=== PATIENT | female | born 2005 | race Caucasian/White ===

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

== ENCOUNTER 2023-03-04 11:29 | Outpatient (REF) | payer OTHER, SELFPAY ==
[2023-03-05 09:12] LABS: CT PCR NOT DETECTED (Not Detect.); NG PCR NOT DETECTED (Not Detect.)
[2023-03-05 11:05] LABS: BV Int Neg Control Negative (Negative); BV Int Pos Control Positive (Positive)
== END 2023-03-04 11:30 | disposition home or self-care (01) ==
LOC: HO.LNP 11:29
PROVIDERS: PCP Physician Assistant; Visit Provider Advanced Practice Midwife
DX: Z00.00 Encounter for general adult medical examination without abnormal findings (principal); Z11.3 Encounter for screening for infections with a predominantly sexual mode of transmission
CPT/HCPCS: 0353U; 87480; 87510; 87660

== ENCOUNTER 2023-04-16 14:48 | Emergency (ER) | payer OTHER, SELFPAY ==
--- NOTE | ~2023-04-16 | XR_ITS ---
EXAMINATION: XR CHEST CLINICAL INFORMATION: Shortness of breath COMPARISON: None available. TECHNIQUE: 2 views of the chest were obtained. FINDINGS: No significant abnormality is noted involving the heart, lungs, mediastinum, bony thorax or soft tissues. XR/XR chest 2V IMPRESSION: Unremarkable examination.
[2023-04-16 14:54] VITALS: BP 130/82; PULSE 74; RESP 18; TEMP 36.1; O2SAT 100; BMI 19.9
--- NOTE | 2023-04-16 15:02 | ED_ITS ---
HPI - Asthma General Chief Complaint: Asthma Stated Complaint: difficulty breathing Time Seen by Provider: 04/16/23 15:18 Source: patient Mode of arrival: ambulatory Limitations: no limitations History of Present Illness HPI Narrative: 17-year-old female with a history of asthma, anxiety, depression who presents to the ER for evaluation of chest tightness and SOB that started at 2pm today. she feels like the center for chest is very tight. She has been coughing. She states she has been anxious and unable to take a deep breath. She tried to use her inhaler but was unable to take a deep breath. She came to the ER for further evaluation. She wrap to the ER tearful and anxious, hyperventilating. Patient denies any chest pain, fevers, chills, nausea, vomiting, diarrhea or abdominal pain. She has a known asthma triggers. She uses her inhaler only intermittently and when she needs it. MD complaint: shortness of breath Onset (ago): hour(s) Severity: moderate Context: other (anxiety) Associated symptoms: productive cough Treatments Prior to Arrival: inhaled bronchodilator Related Data Current Asthma Therapy: inhaled bronchodilator Previous Rx's Medication Instructions Recorded fluticasone propionate 50 1 spray intranasal DAILY PRN 08/05/21 mcg/actuation nasal allergy symptoms #16 grams spray,suspension (Flonase Allergy Relief) tretinoin 0.025 % topical cream 1 appl topical BEDTIME #45 grams 09/25/21 (Retin-A) loratadine 10 mg tablet 10 mg PO DAILY #90 tabs 01/12/22 sertraline 25 mg tablet 12.5 mg PO DAILY 30 days #15 tabs 08/21/22 albuterol sulfate 90 mcg/actuation 1 inh inhalation QID PRN shortness 04/16/23 aerosol inhaler of breath or wheezing #6.7 grams Allergies Allergy/AdvReac Type Severity Reaction Status Date / Time dog dander Allergy Mild Sneezing Verified 03/04/23 11:37 [place] Allergy Unknown Unknown Uncoded 03/04/23 11:37 pollen Allergy Unknown Unknown Uncoded 03/04/23 11:37 Soap Allergy Unknown Unknown Uncoded 03/04/23 11:37 Review of Systems Review of Systems: Yes all other systems are reviewed and are negative PMFSH Past Medical History Medical History (Updated 04/16/23 @ 16:40 by DANDY Guaman) Asthma Hypotension Surgical History No pertinent past surgical history Family History Family History (Updated 03/04/23 @ 11:39 by YOANA Chaves) Father No problems noted. Mother Rheumatoid arthritis HTN (hypertension) Lupus Maternal Aunt Breast cancer Social History Social History (Updated 03/04/23 @ 11:39 by YOANA Chaves) Alcohol intake: never Smoked in Last 30 Days: Yes Use of substances other than those prescribed or required for medical reasons: Yes Substance Use Type: Marijuana Substance Use Frequency: Occasionally Advance Directives: No Advance Directives Information Provided: No Patient : No Physical Exam Vital Signs: Vital Signs: Last Vital Signs Temp 98 F 04/16/23 16:44 Pulse 93 04/16/23 16:44 Resp 20 04/16/23 16:44 BP 99/70 04/16/23 16:44 Pulse Ox 100 04/16/23 16:44 O2 Del Method Room Air 04/16/23 16:44 BMI result Body Mass Index 19.9 Appearance: Alert. Oriented X3. No acute distress. Head: normocephalic, atraumatic. Eyes: Pupils equal, round and reactive to light. ENT: Pharynx normal. No tonsillar swelling or exudate. Neck: Normal inspection. Neck supple. CVS: Normal heart rate and rhythm. Pulses normal. Respiratory: No respiratory distress. Breath sounds normal. Abdomen: Soft and nontender. +BS x4 Skin: Skin warm and dry. Normal skin color. Normal skin turgor. No rashes. Extremities: No lower extremity edema. No joint swelling. Neuro/psych: Oriented X 3. No motor deficit. No sensory deficit. CN II-XII intact. Normal speech and cognition. Course Course Course Narrative: This is an RME: Additional HPI, ROS, PE not included below will be deferred to primary provider. This is a 2-yijs-rh, with a hx of asthma, presenting to the emergency department with complaints of shortness of breath just prior to arrival. P atient is tearful and stating that her hands and her face are numb. She tried using her albuterol inhaler and nebulizers at home which provided her without any relief. Lung sounds clear to auscultation bilaterally. Patient reports that she feels as though she cannot take a deep breath. VSS, oxygen saturation 100% on RA. Plan: Albuterol updraft ordered. Medications Administered Discontinued Medications Generic Name Dose Route Start Last Admin Trade Name Freedom PRN Reason Stop Dose Admin Albuterol Sulfate 5 mg 04/16/23 14:51 04/16/23 15:36 Albuterol Sulfate (0.083%) 2.5 Mg/3 Ml Vial.Neb INHALE 04/16/23 14:52 5 mg ONCE ONE Administration Medical Decision Making Medical Decision Making MDM Narrative: 17-year-old female with history of anxiety, depression, asthma presents to the ER for evaluation of shortness of breath and chest tightness that started this afternoon. Arrives to the ER anxious, tachypneic. Her lungs are clear throughout with no wheezing. She is satting 100% on room air. Patient was administered albuterol nebulizer treatment. Chest x-ray was performed which was negative for pneumonia. She is feeling better after her treatment. Her symptoms most likely related to anxiety and less likely asthma given no wheezing on examination. No role for steroids today. She did run out of her albuterol inhaler and would like a refill. She is stable for discharge home. Differential Diagnosis Differential Diagnoses: The differential diagnosis associated with the presentation includes Acute asthma exacerbation, acute anxiety attack, URI with cough, bronchospasm, allergic reaction, less likely pulmonary embolism Independent Interpretation I performed an independent interpretation of an: Plain X-Ray Interpretation: Chest x-ray with good inspiratory effort, no focal opacity Radiology Impression Discussion of test interpretation with radiology: I have reviewed the radiologist's reading. Radiologist Impression: XR/XR chest 2V IMPRESSION: Unremarkable examination. External Record Review External record reviewed: Outpatient record and Prior outpatient labs Prescription Management I considered prescription management with: Other (albuterol) Critical Care Time Critical Care Time Critical Care Time: No Discharge Plan Discharge Clinical Impression: Shortness of breath Patient Disposition: Home, Self-Care Instructions: Shortness of Breath (ED) Additional Instructions: Your chest x-ray today was normal. Your oxygen level was 100% and your lungs were clear on exam. Recommend using the prescribed albuterol inhaler as needed for shortness of breath or wheezing. Recommend starting Mucinex for your cough, to help thin the mucus. If you develop new or worsening symptoms call 911 or come back to the ER for further evaluation. Prescriptions: New albuterol sulfate 90 mcg/actuation HFA aerosol inhaler 1 inh inhalation QID PRN (Reason: shortness of breath or wheezing) Qty: 6.7 0RF No Action fluticasone propionate [Flonase Allergy Relief] 50 mcg/actuation spray,suspension 1 spray intranasal DAILY PRN (Reason: allergy symptoms) Qty: 16 1RF Rx Instructions: administer into each nostril loratadine 10 mg tablet 10 mg PO DAILY Qty: 90 2RF Rx Instructions: Take 1 tablet by mouth daily tretinoin [Retin-A] 0.025 % cream 1 appl topical BEDTIME Qty: 45 1RF sertraline 25 mg tablet 12.5 mg PO DAILY 30 Days Qty: 15 2RF Interventions: ED Discharge Assessment Last Done: 04/16/23 16:41 Discharge Date/Time: 04/16/23 16:48
[2023-04-16 15:36] VITALS: PULSE 71; RESP 16; O2SAT 100
[2023-04-16] MEDS: Albuterol Sulfate (0.083%) 2.5 MG/3 ML VIAL.NEB 5 MG INHALE (15:36)
--- NOTE | 2023-04-16 15:55 | PC.NURSE ---
pt currently in room getting updraft from RT, pt a&ox3, pt speaking in full sentences, lungs at this time are diminished but clear-mid updraft, denies pain/discomfort, call batista within reach, will continue to monitor
[2023-04-16 16:44] VITALS: BP 99/70; PULSE 93; RESP 20; TEMP 36.6; O2SAT 100
== END 2023-04-16 16:48 | disposition home or self-care (01) ==
PROVIDERS: Emergency Provider Internal Medicine; PCP Physician Assistant
DX: R06.02 Shortness of breath (principal); R05.9 Cough, unspecified; F41.9 Anxiety disorder, unspecified; Z79.899 Other long term (current) drug therapy
CPT/HCPCS: 71046; 94640; 99284

== ENCOUNTER 2023-04-18 04:47 | Emergency (ER) | payer OTHER, SELFPAY ==
[2023-04-18 04:54] VITALS: BP 94/64; PULSE 76; RESP 16; TEMP 37.3; O2SAT 100; BMI 24.0
[2023-04-18 05:00] VITALS: BP 94/64; PULSE 76; RESP 16; TEMP 37.3; O2SAT 100
[2023-04-18 05:10] VITALS: O2SAT 100
--- NOTE | 2023-04-18 05:11 | PC.NURSE ---
pt c/o sob and not being able to catch a full breath aox4 mother at bedside no respiratory distress
--- NOTE | 2023-04-18 05:14 | ED_ITS ---
HPI - General Adult General Chief complaint: Upper Respiratory Symptoms Stated complaint: sob Time Seen by Provider: 04/18/23 04:53 Source: patient Mode of arrival: ambulatory Limitations: no limitations History of Present Illness HPI narrative: 17-year-old female with history of asthma presents with shortness of breath, nasal congestion and chest tightness. Symptoms started on April 16 of this year. Symptoms are intermittent. They are moderate to severe. There is no clear relieving or exacerbating features. She has tried nasal steroids, and had albuterol inhaler. Symptoms are moderate to severe at this time which brought her into the emergency department early this morning. She denies any fevers or chills. She does advocate that she has nasal congestion and postnasal drip. She denies any significant headache, nausea or additional focal neurologic deficits per Related Data Previous Rx's Medication Instructions Recorded fluticasone propionate 50 1 spray intranasal DAILY PRN 08/05/21 mcg/actuation nasal allergy symptoms #16 grams spray,suspension (Flonase Allergy Relief) tretinoin 0.025 % topical cream 1 appl topical BEDTIME #45 grams 09/25/21 (Retin-A) loratadine 10 mg tablet 10 mg PO DAILY #90 tabs 01/12/22 sertraline 25 mg tablet 12.5 mg PO DAILY 30 days #15 tabs 08/21/22 albuterol sulfate 90 mcg/actuation 1 inh inhalation QID PRN shortness 04/16/23 aerosol inhaler of breath or wheezing #6.7 grams fexofenadine-pseudoephedrine ER 1 tab PO QAM PRN allergy symptoms 04/18/23 180 mg-240 mg tablet,ext.release #10 tabs 24 hr (Lacy-D 24 Hour) Allergies Allergy/AdvReac Type Severity Reaction Status Date / Time dog dander Allergy Mild Sneezing Verified 03/04/23 11:37 [place]itos Allergy Unknown Unknown Uncoded 03/04/23 11:37 pollen Allergy Unknown Unknown Uncoded 03/04/23 11:37 Soap Allergy Unknown Unknown Uncoded 03/04/23 11:37 Review of Systems Review of Systems: CONSTITUTIONAL: Denies weight loss, fever and chills. HEENT: Denies changes in vision and hearing. RESPIRATORY: + SOB and cough. CV: Denies palpitations no CP. GI: Denies abdominal pain, nausea, vomiting and diarrhea. : Denies dysuria and urinary frequency. MSK: Denies myalgia and joint pain. SKIN: Denies rash and pruritus. NEUROLOGICAL: Denies headache and syncope. PSYCHIATRIC: Denies recent changes in mood. Denies anxiety and depression. All other ROS are negative unless in HPI [facility] Past Medical History Medical History Asthma Hypotension Surgical History No pertinent past surgical history Family History Family History Father No problems noted. Mother Rheumatoid arthritis HTN (hypertension) Lupus Maternal Aunt Breast cancer Social History Social History Alcohol intake: never Substance Use Type: Marijuana Physical Exam ED Vital Signs: Vital Signs - 24 hr 04/18/23 04:54 04/18/23 05:00 04/18/23 05:10 Temperature 99.1 F 99.1 F Pulse Rate 76 76 Respiratory Rate 16 16 Blood Pressure 94/64 94/64 Pulse Oximetry 100 100 100 Oxygen Delivery Method Room Air Room Air Room Air BMI result Body Mass Index 24.0 GEN: Well developed, no acute distress, alert, oriented HEENT: Normocephalic, atraumatic, normal external ears, nose appears normal, no oropharyngeal edema or exudates Eyes: Normal to appearance Neck: Supple, no lymphadenopathy Respiratory: Talks in complete sentences, no respiratory distress, clear to auscultation bilaterally Cardiovascular: Regular rate and rhythm, no murmurs rubs or gallops Abdomen: Soft, nontender, nondistended, no guarding, no rebound Back: No CVA tenderness Extremities: No clubbing cyanosis or edema Neurologic: No focal neurologic deficits, cranial nerves 2-12 intact, strength is 5/5 bilaterally Skin: No rash Medical Decision Making Medical Decision Making MDM Narrative: 17-year-old female with history of asthma presents with difficulty breathing. Her sensations that she is not able to take full breath in. On my evaluation, patient had a pulse rate of 70. Her oxygen saturation was 100% on room air. She did appear somewhat anxious and short of breath but was able to talk in complete sentences. She was afebrile. She was here in the emergency department just a couple days ago. She had a chest x-ray which was unremarkable for acute cardiopulmonary disease. At this time, based on the congestion, cough, postnasal drip, shortness of breath, this is suggestive of a sinus related issue. She will continue nasal steroid. I will give her 1 dose of systemic steroids. She will use albuterol inhaler as needed. She has already been prescribed fluticasone nasal spray. I did review the imaging study from 2 days ago which showed no acute cardiopulmonary disease. There is no emergent indication for any additional testing. Doubt significant anemia, renal dysfunction, electrolyte abnormality. Doubt pneumonia, bronchitis, patient is PERC criteria 0 in unlikely of acute pulmonary embolus. Will treat patient with 1 dose of dexamethasone, Benadryl. Will recommend additional treatment. Will recommend follow-up with Pulmonary Medicine as well. Differential Diagnosis Differential Diagnoses: The differential diagnosis associated with the presentation includes (See above) External Record Review External record reviewed: Prior outpatient radiology (Chest x-ray was normal, no acute cardiopulmonary disease) Prescription Management I considered prescription management with: Antibiotic Discharge Plan Discharge Clinical Impression: Acute dyspnea Patient Disposition: Home, Self-Care Instructions: How to Use a Metered-Dose Inhaler (ED), Dyspnea (ED) Additional Instructions: Plan: Start Lacy-D daily Albuterol inhaler every 6 hours as needed Fluticasone nasal spray daily You received oral steroids in the emergency department. Prescriptions: New fexofenadine-pseudoephedrine [Lacy-D 24 Hour] 180-240 mg tablet extended release 24 hr 1 tab PO QAM PRN (Reason: allergy symptoms) Qty: 10 0RF No Action fluticasone propionate [Flonase Allergy Relief] 50 mcg/actuation spray,suspension 1 spray intranasal DAILY PRN (Reason: allergy symptoms) Qty: 16 1RF Rx Instructions: administer into each nostril loratadine 10 mg tablet 10 mg PO DAILY Qty: 90 2RF Rx Instructions: Take 1 tablet by mouth daily albuterol sulfate 90 mcg/actuation HFA aerosol inhaler 1 inh inhalation QID PRN (Reason: shortness of breath or wheezing) Qty: 6.7 0RF tretinoin [Retin-A] 0.025 % cream 1 appl topical BEDTIME Qty: 45 1RF sertraline 25 mg tablet 12.5 mg PO DAILY 30 Days Qty: 15 2RF Referrals: Thom Ramey MD [Physician] - 10 days Bee Perkins PA-C [Primary Care Provider] - 5 days
[2023-04-18] MEDS: diphenhydrAMINE HCL 25 MG CAPSULE 50 MG PO (05:42)
[2023-04-18] MEDS: dexAMETHasone 6 MG TABLET PO (05:42)
--- NOTE | 2023-04-18 05:42 | PC.NURSE ---
benadryl and dexamethasone PO administered per MAR
== END 2023-04-18 05:48 | disposition home or self-care (01) ==
PROVIDERS: Emergency Provider Emergency Medicine; PCP Physician Assistant
DX: R06.02 Shortness of breath (principal); R07.89 Other chest pain; Z79.899 Other long term (current) drug therapy
CPT/HCPCS: 99283; 99284; J8540

== ENCOUNTER 2023-04-20 01:21 | Emergency (ER) | payer OTHER, SELFPAY ==
[2023-04-20 01:25] VITALS: BP 127/79; PULSE 79; RESP 18; TEMP 36.4; O2SAT 98; BMI 43.0
--- NOTE | 2023-04-20 01:48 | ED_ITS ---
HPI - Anxiety General Chief Complaint: Anxiety Stated Complaint: Sob Time Seen by Provider: 04/20/23 01:47 Source: patient Mode of arrival: ambulatory Limitations: no limitations History of Present Illness HPI narrative: Patient history of anxiety been here 2 times in last 3 days for anxiety/chest pain/shortness of breath comes here as still feel the same with increased shortness of breath and mid chest pain since last no diaphoresis no nausea no vomiting patient claims that she has increased anxiety. No recent travel Related Data Previous Rx's Medication Instructions Recorded fluticasone propionate 50 1 spray intranasal DAILY PRN 08/05/21 mcg/actuation nasal allergy symptoms #16 grams spray,suspension (Flonase Allergy Relief) tretinoin 0.025 % topical cream 1 appl topical BEDTIME #45 grams 09/25/21 (Retin-A) loratadine 10 mg tablet 10 mg PO DAILY #90 tabs 01/12/22 sertraline 25 mg tablet 12.5 mg PO DAILY 30 days #15 tabs 08/21/22 albuterol sulfate 90 mcg/actuation 1 inh inhalation QID PRN shortness 04/16/23 aerosol inhaler of breath or wheezing #6.7 grams fexofenadine-pseudoephedrine ER 1 tab PO QAM PRN allergy symptoms 04/18/23 180 mg-240 mg tablet,ext.release #10 tabs 24 hr (Lacy-D 24 Hour) ibuprofen 600 mg tablet 600 mg PO Q6H PRN fever or pain 04/20/23 #30 tabs lorazepam 0.5 mg tablet (Ativan) 0.5 mg PO BID PRN anxiety #6 tabs 04/20/23 Allergies Allergy/AdvReac Type Severity Reaction Status Date / Time dog dander Allergy Mild Sneezing Verified 03/04/23 11:37 [place]itos Allergy Unknown Unknown Uncoded 03/04/23 11:37 pollen Allergy Unknown Unknown Uncoded 03/04/23 11:37 Soap Allergy Unknown Unknown Uncoded 03/04/23 11:37 Review of Systems Review of Systems: Yes all other systems are reviewed and are negative [facility] Past Medical History Medical History Asthma Hypotension Surgical History No pertinent past surgical history Family History Family History Father No problems noted. Mother Rheumatoid arthritis HTN (hypertension) Lupus Maternal Aunt Breast cancer Social History Social History Alcohol intake: never Smoked in Last 30 Days: No Use of substances other than those prescribed or required for medical reasons: No Substance Use Type: Marijuana Advance Directives: No Advance Directives Information Provided: Yes Physical Exam Vital Signs: Vital Signs: Last Vital Signs Temp 97.9 F 04/20/23 04:00 Pulse 66 04/20/23 04:00 Resp 16 04/20/23 04:00 BP 94/54 L 04/20/23 04:00 Pulse Ox 100 04/20/23 04:00 O2 Del Method Room Air 04/20/23 04:00 BMI result Body Mass Index 43.0 Appearance: Alert. Oriented X3. Anxious Eyes: PERRLA, No Nystagmus ENT: Pharynx normal. Oral Mucosa moist Neck: Normal inspection. Neck supple. CVS: Normal heart rate and rhythm. Pulses normal. Respiratory: No respiratory distress. Equal air entry bilateral, no wheezing/rales/rhonchi left 2nd intercostal space tenderness Abdomen: Soft and nontender. Bowel sounds are present, no mass palpable, no CVA tenderness Skin: Skin warm and dry. Normal skin color. Normal skin turgor. Extremities: No lower extremity edema. No calf tenderness Neuro: Oriented X 3. No motor deficit. Medications Administered Discontinued Medications Generic Name Dose Route Start Last Admin Trade Name Reeseq PRN Reason Stop Dose Admin Ibuprofen 600 mg 04/20/23 01:57 04/20/23 02:04 Ibuprofen 600 Mg Tablet PO 04/20/23 01:58 600 mg ONCE ONE Administration Lorazepam 1 mg 04/20/23 01:54 04/20/23 02:05 Lorazepam 1 Mg Tablet PO 04/20/23 01:55 1 mg ONCE ONE Administration Medical Decision Making Medical Decision Making [facility] Narrative: Patient's diet of atypical chest workup negative any ACS /PE will discharge patient home patient feeling much better at this time Lab Data [facility] Lab Attestation statement: I reviewed the patient's lab results. 04/20/23 02:14 04/20/23 02:14 Labs: Lab Results 04/20/23 04/20/23 04/20/23 Range/Units 02:14 02:14 02:14 WBC 11.8 H (4.8-10.8) X10*3/uL RBC 4.60 (4.20-5.50) X10*6/uL Hgb 14.0 (12.0-16.0) g/dl Hct 41.4 (37.0-47.0) % MCV 90.0 (80.0-98.0) fL MCH 30.4 (27.0-33.0) pg MCHC 33.8 (31.0-35.0) g/dl RDW 12.4 (11.0-16.0) % Plt Count 307 (160-400) X10*3/uL MPV 9.0 L (9.4-12.3) fL Immature Gran % (Auto) 0.4 (0.0-0.4) % Neut % (Auto) 50.1 (45-73) % Lymph % (Auto) 39.3 (20-40) % [place] % (Auto) 8.4 (2-11) % Eos % (Auto) 1.4 (0-4) % Baso % (Auto) 0.4 (0-2) % Lymph # (Auto) 4.7 (1.2-4.9) X10*3/uL [place] # (Auto) 1.0 (0.1-1.2) X10*3/uL Eos # (Auto) 0.2 (0.0-0.4) X10*3/uL Baso # (Auto) 0.1 (0.0-0.2) X10*3/uL Abs Immat Gran (auto) 0.05 H (0.00-0.03) X10*3/uL Absolute Neuts (auto) 5.9 (2.0-8.3) x10*3/uL Absolute Nucleated RBC 0.000 (0.0-0.012) X10*3/uL Nucleated RBC % (auto) 0.0 (0.0-0.2) /100WBC D-Dimer High Sensitivty 212 NG/ML Sodium 141 (135-145) mmol/L Potassium 3.8 (3.3-5.1) mmol/L Chloride 107 (96-108) mmol/L Carbon Dioxide 22 (22-29) mmol/L Anion Gap 16 (12-20) BUN 12 (9-16) mg/dL Creatinine 0.82 (0.5-1.4) mg/dL Estim Creat Clear Calc 131.4 Estimated GFR > 60 Random Glucose 84 (60-115) mg/dL Calcium 10.3 H D (8.4-10.2) mg/dL Magnesium 2.4 (1.6-2.6) mg/dL Troponin I High Sens (<3.5-17.0) ng/L 04/20/23 Range/Units 02:14 WBC (4.8-10.8) X10*3/uL RBC (4.20-5.50) X10*6/uL Hgb (12.0-16.0) g/dl Hct (37.0-47.0) % MCV (80.0-98.0) fL MCH (27.0-33.0) pg MCHC (31.0-35.0) g/dl RDW (11.0-16.0) % Plt Count (160-400) X10*3/uL MPV (9.4-12.3) fL Immature Gran % (Auto) (0.0-0.4) % Neut % (Auto) (45-73) % Lymph % (Auto) (20-40) % [place] % (Auto) (2-11) % Eos % (Auto) (0-4) % Baso % (Auto) (0-2) % Lymph # (Auto) (1.2-4.9) X10*3/uL [place] # (Auto) (0.1-1.2) X10*3/uL Eos # (Auto) (0.0-0.4) X10*3/uL Baso # (Auto) (0.0-0.2) X10*3/uL Abs Immat Gran (auto) (0.00-0.03) X10*3/uL Absolute Neuts (auto) (2.0-8.3) x10*3/uL Absolute Nucleated RBC (0.0-0.012) X10*3/uL Nucleated RBC % (auto) (0.0-0.2) /100WBC D-Dimer High Sensitivty NG/ML Sodium (135-145) mmol/L Potassium (3.3-5.1) mmol/L Chloride (96-108) mmol/L Carbon Dioxide (22-29) mmol/L Anion Gap (12-20) BUN (9-16) mg/dL Creatinine (0.5-1.4) mg/dL Estim Creat Clear Calc Estimated GFR Random Glucose (60-115) mg/dL Calcium (8.4-10.2) mg/dL Magnesium (1.6-2.6) mg/dL Troponin I High Sens < 2.7 (<3.5-17.0) ng/L Independent Interpretation I performed an independent interpretation of an: EKG Interpretation: Normal sinus rhythm heart rate 60 beats per minute normal interval normal axis no acute ST-T changes no acute ischemia Discharge Plan Discharge Clinical Impression: Acute anxiety, Acute costochondritis Patient Disposition: Home, Self-Care Instructions: Costochondritis (ED), Anxiety (ED) Additional Instructions: Continue your prescribed medications Ativan for severe anxiety Ibuprofen for chest pain Follow with PCP as needed Prescriptions: New ibuprofen 600 mg tablet 600 mg PO Q6H PRN (Reason: fever or pain) Qty: 30 0RF lorazepam [Ativan] 0.5 mg tablet 0.5 mg PO BID PRN (Reason: anxiety) Qty: 6 0RF No Action fluticasone propionate [Flonase Allergy Relief] 50 mcg/actuation spray,suspension 1 spray intranasal DAILY PRN (Reason: allergy symptoms) Qty: 16 1RF Rx Instructions: administer into each nostril loratadine 10 mg tablet 10 mg PO DAILY Qty: 90 2RF Rx Instructions: Take 1 tablet by mouth daily albuterol sulfate 90 mcg/actuation HFA aerosol inhaler 1 inh inhalation QID PRN (Reason: shortness of breath or wheezing) Qty: 6.7 0RF fexofenadine-pseudoephedrine [Lacy-D 24 Hour] 180-240 mg tablet extended release 24 hr 1 tab PO QAM PRN (Reason: allergy symptoms) Qty: 10 0RF tretinoin [Retin-A] 0.025 % cream 1 appl topical BEDTIME Qty: 45 1RF sertraline 25 mg tablet 12.5 mg PO DAILY 30 Days Qty: 15 2RF
--- NOTE | 2023-04-20 01:54 | ECG_ITS ---
Test Reason : ANXIETY Blood Pressure : / mmHG Vent. Rate : 060 BPM Atrial Rate : 060 BPM P-R Int : 128 ms QRS Dur : 092 ms QT Int : 414 ms P-R-T Axes : 000 079 038 degrees QTc Int : 414 ms Normal sinus rhythm with sinus arrhythmia Normal ECG No previous ECGs available Referred By: Angel Ibrahim Electronically Signed By:BISHOP RIVAS MD
[2023-04-20] MEDS: Ibuprofen 600 MG TABLET PO (02:04)
[2023-04-20] MEDS: LORazepam 1 MG TABLET PO (02:05)
[2023-04-20 02:19] LABS: MANUAL DIFF FLAG NO
[2023-04-20 02:20] LABS: Basophils Absolute Auto 0.1 X10*3/uL (0.0-0.2); Basophils Percent Auto 0.4 % (0-2); Eosinophils Absolute Auto 0.2 X10*3/uL (0.0-0.4); Eosinophils Percent Auto 1.4 % (0-4); Hematocrit 41.4 % (37.0-47.0); Imm Gran Abs Auto 0.05 X10*3/uL (0.00-0.03); Imm Gran Pct Auto 0.4 % (0.0-0.4); Lymphocytes Absolute Auto 4.7 X10*3/uL (1.2-4.9); Lymphocytes Percent Auto 39.3 % (20-40); Mean Corpuscular HGB Conc 33.8 g/dl (31.0-35.0); Mean Corpuscular Hemoglobin 30.4 pg (27.0-33.0); Monocytes Percent Auto 8.4 % (2-11); Neutrophils Absolute Auto 5.9 x10*3/uL (2.0-8.3); Neutrophils Percent Auto 50.1 % (45-73); Platelet Count 307 X10*3/uL (160-400); Red Cell Distribution Width 12.4 % (11.0-16.0); White Blood Count 11.8 X10*3/uL (4.8-10.8)
--- NOTE | 2023-04-20 02:21 | PC.NURSE ---
Pt ca&ox3. Pt reports 06/17 neck and chest pain. Pt medicated per jan. Blood drawn and EKG completed. Mother at bedside with patient.
[2023-04-20 02:29] LABS: D Dimer High Sensitivity 212 NG/ML
[2023-04-20 02:43] LABS: Anion Gap 16 (12-20); Blood Urea Nitrogen 12 mg/dL (9-16); Calcium 10.3 mg/dL (8.4-10.2); Carbon Dioxide 22 mmol/L (22-29); Chloride 107 mmol/L (96-108); Creatinine Clr Calc Pharmacy 131.4; Estimated Glomerular Filt Rate > 60; Glucose Random 84 mg/dL (60-115); Magnesium 2.4 mg/dL (1.6-2.6); Potassium 3.8 mmol/L (3.3-5.1); Sodium 141 mmol/L (135-145)
[2023-04-20 02:52] LABS: Troponin-I High Sensitivity < 2.7 ng/L (<3.5-17.0)
[2023-04-20 03:09] VITALS: RESP 12
--- NOTE | 2023-04-20 03:10 | PC.NURSE ---
Pt rest comfortably. Reports 6/10 pain. Mother at bedside. wctm.
[2023-04-20 04:00] VITALS: BP 94/54; PULSE 66; RESP 16; TEMP 36.6; O2SAT 100
--- NOTE | 2023-04-20 04:04 | MHC.EDTECH ---
THIS PCT ASSUMED CARE OF PT AT 0300 ,0400 ROUNDING DONE ,VITALS SIGN TAKEN ,PT AWAKE ,MOM AT BEDSIDE .
== END 2023-04-20 04:33 | disposition home or self-care (01) ==
PROVIDERS: Emergency Provider Internal Medicine
DX: F41.9 Anxiety disorder, unspecified (principal); M94.0 Chondrocostal junction syndrome [Tietze]; R06.02 Shortness of breath; F41.1 Generalized anxiety disorder; F43.0 Acute stress reaction; Z79.899 Other long term (current) drug therapy
CPT/HCPCS: 36415; 80048; 83735; 84484; 85025; 85379; 93005; 99283; 99285

== ENCOUNTER 2023-07-01 07:59 | Outpatient (AMB) | payer OTHER, SELFPAY ==
[2023-07-01 08:20] VITALS: BP 104/60; PULSE 66; O2SAT 99; BMI 21.1
--- NOTE | 2023-07-01 08:20 | A.OFFPC_ITS ---
Vital Signs 07/01/23 08:20 Height 5 ft 3 in Weight 119 lb BMI 21.1 BP 104/60 Blood Pressure Location Lt brachial Position Sitting Pulse 66 Pulse Source Pulse Oximeter Pulse Oximetry (%) 99 Oxygen Delivery Method Room Air Intake Visit Reasons: New patient-respiratory issues Intake Note: New patient, respiratory issues Event Lighting Specialist Required: No Accompanied by: Mother Allergies dog dander Allergy (Mild, Verified 07/01/23 08:38) Sneezing Doritos Allergy (Unknown, Uncoded 07/01/23 08:38) Unknown pollen Allergy (Unknown, Uncoded 07/01/23 08:38) Unknown Soap Allergy (Unknown, Uncoded 07/01/23 08:38) Unknown Medication List - Last Reconciled 07/01/23 by HEATHER Smith albuterol sulfate 90 mcg/actuation 1 inh inhalation QID PRN ibuprofen 600 mg PO Q6H PRN loratadine 10 mg PO DAILY Tobacco use date assessed: 07/01/23 Dental Screening Dental Screen Date: 07/01/23 Did you have a dental visit in the last 12 months?: Yes Did you have a dental problem in the last 6 months where you did not have access to dental care?: No Was dental information given to patient?: Patient has dentist HPI New patient-respiratory issues HPI Details Patient is a 17-year-old female who presents today to on license of [facility] care. Previous PCP DANDY Dawson. medical history significant for anxiety, depression, acne, asthma. Patient reports that she was on antidepressant in the past and she stopped taking it due to not liking have she felt on the medication. Patient not interested in counseling referral-reports doing this in the past and did not like. She has crisis phone number. Denies SI or HI. She reports taking ibuprofen as needed for menstrual cramps - she is followed by [facility]. She reports that in the past she did have positive KOKO-does not want this to recheck this time. Reports that asthma is stable, reports intermittent sensation like she does not have enough air, although last time she reports she had these symptom she went to the emergency department and she was told that this is her anxiety. Patient denies chest pain, no difficulty breathing today. 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 Patient is accompanied by her mother. [facility] Medical History Asthma Hypotension Surgical History No pertinent past surgical history Family History Father No problems noted. Mother Rheumatoid arthritis HTN (hypertension) Lupus Maternal Aunt Breast cancer Family/Other Mental health disorder Substance use disorder Social History Housing: Apartment Alcohol intake: never Patient Tobacco Use Status: Never used Tobacco e-Cigarette/Vaping Use: Never Used Second Hand Smoke Exposure: No Substance Use Type: Marijuana service: No Current occupational status: employed Current occupational exposures/hazards: No Cognitive needs: No Hearing needs: No Vision needs: No Female Reproductive History Menstrual Age of Menarche: 10 Questionnaire PHQ-9 Over the last 2 weeks, how often have you been bothered by any of the following problems? 1. Little interest or pleasure in doing things: several days 2. Feeling down, depressed, or hopeless: several days 3. Trouble falling or staying asleep, or sleeping too much: nearly every day 4. Feeling tired or having little energy: nearly every day 5. Poor appetite or overeating: more than half the days 6. Feeling bad about yourself - or that you are a failure or have let yourself or your family down: several days 7. Trouble concentrating on things, such as reading the newspaper or watching television: several days 8. Moving or speaking so slowly that other people could have noticed. Or the opposite - being so fidgety or restless that you have been moving around a lot more than usual: not at all 9. Thoughts that you would be better off or of hurting yourself in some way: not at all Total score: 12 Depression Screening Interpretation: Positive Depression Screening Follow-up: Declines treatment 28206 - PHQ-9 Billing: Yes Source: Developed by Drs. Star Ballard, Tricia Perkins, Mirza Merino and colleagues, with an educational mone from [employer]. Thrive Questionnaire Date Thrive assessed: 07/01/23 I am a: Patient What is your living situation today?: I have a steady place to live Within the past 12 months, did the food you bought not last and you didn't have the money to get more?: Never true Within the past 12 months, did you worry whether your food would run out before you got money to buy more?: Never true Do you have trouble paying for medicines?: No Do you have trouble getting transportation to medical appointments?: No Do you have trouble paying your heating and electricity bill?: No Do you have trouble taking care of your child, family member or friend?: No Do you have trouble with day-to-day activities such as bathing, preparing meals, shopping, managing finances, etc.?: No Are you currently unemployed and looking for a job?: No Are you interested in more education?: No Please select the resources that you would like help with: None Currently or been in a relationship where the following occur: no concerns reported AUDIT C Alcohol Use Questionnaire (AUDIT-C) 1. How often do you have a drink containing alcohol?: Never Total Score: 0 Score Reviewed/Action Taken: No MABLE-7 AMB Questionnaire MABLE-7 Date MABLE - 7 assessed: 07/01/23 Feeling nervous, anxious, or on edge: 2 = More than half the days Not being able to stop or control worryin = Several days Worrying too much about different things: 3 = Nearly every day Trouble relaxin = More than half the days Being so restless that it is hard to sit still: 0 = Not at all Becoming easily annoyed or irritable: 3 = Nearly every day Feeling afraid as if something awful might happen: 2 = More than half the days Total MABLE-7 score (0-4 normal; 5-9 mild; 10-14 moderate; 15-21 severe): 13 Source: Developed by Drs. Star Ballard, Tricia Perkins, Mirza Merino and colleagues, with an educational mone from [employer]. MABLE-7 Assessment Billing MABLE-7 Assessment Tool: MABLE-7 Assessment 04332 Review of Systems Const Denies body aches, Denies chills, Denies fever(s) and Denies headache(s) Eyes Denies change in vision ENT Denies dizziness, Denies otalgia, Denies headache(s), Denies nasal discharge, Denies sinus pain and Denies sore throat Card Denies chest pain, Denies edema, Denies lightheadedness and Denies dyspnea Resp Denies cough, Denies dyspnea and Denies wheezing GI Denies abdominal pain, Denies constipation, Denies diarrhea, Denies nausea and Denies vomiting Denies dysuria Musc Denies myalgias Skin/Breast Denies rash Neuro Denies dizziness and Denies headache(s) Aller/Immun Denies wheezing Physical exam (Primary Care) Vital Signs: Last Vital Signs Pulse 66 07/01/23 08:20 BP 104/60 07/01/23 08:20 Pulse Ox 99 07/01/23 08:20 Oxygen Delivery Method Room Air 07/01/23 08:20 BMI result Body Mass Index 21.1 Tobacco/Smoking Status: Tobacco use Status Tobacco use date assessed 07/01/23 07/01/23 08:30 Patient Tobacco Use Status Never used Tobacco 07/01/23 08:30 e-Cigarette/Vaping Use Never Used 07/01/23 08:30 PHQ-9: PHQ-9 Score PHQ-9: Total score 12 07/01/23 08:30 Depression Screening Interpretation: Positive Depression Screening Follow-up: Declines treatment Thrive Assessment: Date of Thrive Assessment Date Thrive assessed 07/01/23 07/01/23 08:30 Currently or been in a relationship where the following occur: no concerns reported Const General: cooperative and no acute distress Orientation/consciousness: patient oriented x3 HENMT Head: Yes normocephalic and Yes atraumatic Ears: TM's normal bilaterally Face and sinus: Yes sinuses nontender Mouth: oropharynx normal and moist mucous membranes Throat: Yes posterior oropharynx normal Eyes General: appearance normal, both eyes and all related structures Pupils: Equal, round and reactive pupils present EOM: EOMs intact bilaterally Neck Neck: Yes normal visual inspection, Yes full ROM and Yes no lymphadenopathy Thyroid: Thyroid normal Resp Effort & Inspection: normal respiratory effort and able to speak in complete sentences Auscultation: clear to auscultation bilaterally, no crackles, no rales, no rhonchi and no wheezes Cardio Rate: regular rate Rhythm: regular rhythm Heart sounds: S1 normal heart sound present, S2 normal heart sound present and no murmurs GI Palpation (GI): Soft to palpation, not firm, nontender, no guarding, not rigid and no hepatosplenomegaly Auscultation: normal bowel sounds General: No CVA tenderness Back/Spine/Pelvis Back: No CVA tenderness Skin General skin exam: no rashes or lesions noted Neuro General: patient oriented x3 Cranial nerves: Yes Equal, round and reactive pupils present Gait exam (Neuro): Normal gait present Extrem General: Yes full ROM and No edema Assessment and Plan Assessment & Plan (1) Asthma: Code(s): J45.909 - Unspecified asthma, uncomplicated Plan: Stable Continue albuterol inhaler p.r.n. Signs and symptoms reviewed when to notify provider (2) Anxiety with depression: Code(s): F41.8 - Other specified anxiety disorders Plan: Patient declines antidepressant Patient declines counseling referral Patient has crisis phone number Patient interested in trying hydroxyzine 10 mg b.i.d. p.r.n.-educated about drowsiness Follow-up in 6 months or sooner as needed (3) Encounter to establish care: Code(s): Z76.89 - Persons encountering health services in other specified circumstances Plan: Patient presents to establish care Blood work from 2 months ago was reviewed Medications: New hydroxyzine HCl 10 mg PO BID PRN 10 tabs 0RF anxiety F41.8 - Other specified anxiety disorders Refilled albuterol sulfate 90 mcg/actuation 1 inh inhalation QID PRN 6.7 grams 0RF shortness of breath or wheezing J45.909 - Unspecified asthma, uncomplicated Coding Level of Care Code New Pt Level 4 (55842) Diagnoses Asthma J45.909 Anxiety with depression F41.8 Encounter to establish care Z76.89 Additional Codes MABLE-7 Assessment Billing - MABLE-7 Assessment Tool: MABLE-7 Assessment 56449 ([id number])
== END 2023-07-01 09:01 | disposition home or self-care (01) ==
PROVIDERS: PCP Nurse Practitioner Family; Visit Provider Nurse Practitioner Family
DX: J45.909 Unspecified asthma, uncomplicated (principal); F41.8 Other specified anxiety disorders; Z76.89 Persons encountering health services in other specified circumstances
CPT/HCPCS: 96127; 99204

== ENCOUNTER 2023-08-11 11:17 | Outpatient (REF) | payer OTHER, SELFPAY ==
[2023-08-11 17:39] LABS: CT PCR NOT DETECTED (Not Detect.); NG PCR NOT DETECTED (Not Detect.)
[2023-08-12 12:34] LABS: BV Int Neg Control Negative (Negative); BV Int Pos Control Positive (Positive)
== END 2023-08-11 11:18 | disposition home or self-care (01) ==
LOC: HO.LNP 11:17
PROVIDERS: PCP Nurse Practitioner Family; Visit Provider Advanced Practice Midwife
DX: N89.8 Other specified noninflammatory disorders of vagina (principal)
CPT/HCPCS: 0353U; 87480; 87510; 87660; 99212

== ENCOUNTER 2023-08-11 11:17 | Outpatient (AMB) | payer OTHER, SELFPAY ==
[2023-08-11 11:23] VITALS: BP 100/52; BMI 20.7
--- NOTE | 2023-08-11 11:23 | MHC.OFFVIS ---
Intake Vital Signs 08/11/23 11:23 Height 5 ft 3 in Weight 117 lb BMI 20.7 BP 100/52 L Intake Visit Reasons: ?bv Intake Note: is having odor, and feeling a weird sensation having discharge The patient agreed to use of a medical radiation tech during this encounter. Scribed for MELODY Navarro by Oumou Moore medical radiation tech, on 08/11/2023 at 11:35 am EST. Credit Cashier Required: No Information Interpreted: non-clinical & clinical Road Equipment Operator: Road Equipment Operator Present (Aidyn) Allergies dog dander Allergy (Mild, Verified 08/11/23 11:31) Sneezing Doritos Allergy (Unknown, Uncoded 08/11/23 11:31) Unknown pollen Allergy (Unknown, Uncoded 08/11/23 11:31) Unknown Soap Allergy (Unknown, Uncoded 08/11/23 11:31) Unknown Is last menstrual period known: Yes Last menstrual period: 08/02/23 Post menopausal: No HPI HPI Comments History of Present Illness Details She is here with complaints of vaginal odor and discharge and is taking cranberry supplements. Reports currently sexually active with ex. Uses condoms for BC. Denies pelvic pain. First pelvic exam. PFSH Medical History Hypotension Asthma Surgical History No pertinent past surgical history Family History Father No problems noted. Mother Rheumatoid arthritis HTN (hypertension) Lupus Maternal Aunt Breast cancer Family/Other Mental health disorder Substance use disorder Social History Housing: Apartment Alcohol intake: never Patient Tobacco Use Status: Never used Tobacco e-Cigarette/Vaping Use: Never Used Second Hand Smoke Exposure: No Substance Use Type: Marijuana service: No Current occupational status: employed Current occupational exposures/hazards: No Cognitive needs: No Hearing needs: No Vision needs: No Female Reproductive History Menstrual Age of Menarche: 10 Duration of menses: 3-5 days Date of last menstrual period: 08/02/23 control method: none Total pregnancies: 0 Physical Exam Vital Signs: Last Vital Signs BP 100/52 L 10/04/23 11:23 BMI result Body Mass Index 20.7 Const General: cooperative, healthy appearing, comfortable, no acute distress, well developed, alert and awake Other: General: Yes bladder normal to palpation External Female Exam: normal external appearance and normal appearance of the urethra Speculum Exam - Vagina: normal appearance of the vagina, normal palpation and abnormal vaginal discharge (white, abundant, sl. frothy) Speculum Exam - Cervix: normal appearance of the cervix and normal palpation Bimanual exam- vagina & uterus: normal bimanual exam, normal palpation, bladder normal to palpation and normal palpation Bimanual Exam- Adnexa, other: normal adnexae and no masses Assessment & Plan Assessment & Plan (1) Vaginal discharge: Code(s): N89.8 - Other specified noninflammatory disorders of vagina Plan: Discussed: BV testing and GC/CT panel done today. Await results and treat accordingly. Encouraged to use condoms for STD and prevention. RTO for BC consult when ready to consider use. Encouraged patient to sign up for patient portal. All of her questions and concerns were addressed to the best of my ability and shared decision making. She is agreeable to plan of care. (2) Vaginal odor: Code(s): N89.8 - Other specified noninflammatory disorders of vagina Orders: Orders CT NG by PCR Today N89.8 - Other specified noninflammatory disorders of vagina Bacterial Vaginosis Panel Today N89.8 - Other specified noninflammatory disorders of vagina Coding Level of Care Code Est Pt Level 3 (62003) Diagnoses Vaginal discharge N89.8 Vaginal odor N89.8
== END 2023-08-11 11:47 | disposition home or self-care (01) ==
PROVIDERS: PCP Nurse Practitioner Family; Visit Provider Advanced Practice Midwife
DX: N89.8 Other specified noninflammatory disorders of vagina (principal)
CPT/HCPCS: 99213

== ENCOUNTER 2023-08-14 10:41 | Outpatient (REF) | payer OTHER, SELFPAY | END 2023-08-14 10:42 | disposition home or self-care (01) | LOC: HO.LAB 10:41 | PROVIDERS: Absent Provider Obstetrics & Gynecology; Visit Provider Advanced Practice Midwife | DX: Z20.2 Contact with and (suspected) exposure to infections with a predominantly sexual mode of transmission (principal) | CPT/HCPCS: 36415; 86780; 86803; 87340; 87389 ==

== ENCOUNTER 2024-01-12 08:47 | Outpatient (AMB) | payer OTHER, SELFPAY ==
--- NOTE | 2024-01-12 08:49 | A.OFFPC_ITS ---
Vital Signs 01/12/24 08:51 Height 5 ft 3 in Weight 121 lb 4 oz BMI 21.5 BP 100/60 Blood Pressure Location Lt brachial Position Sitting Pulse 64 Pulse Source Pulse Oximeter Pulse Oximetry (%) 98 Oxygen Delivery Method Room Air Intake Visit Reasons: f/ u asthma & anxiety Intake Note: Patient is here to follow up on Asthma and Anxiety. Industrial Pharmacist Required: No Visual Merchandising Director: Not Required per policy Accompanied by: Self / Same As Patient Allergies dog dander Allergy (Mild, Verified 01/12/24 09:13) Sneezing Doritos Allergy (Unknown, Uncoded 01/12/24 09:13) Unknown pollen Allergy (Unknown, Uncoded 01/12/24 09:13) Unknown Soap Allergy (Unknown, Uncoded 01/12/24 09:13) Unknown Medication List - Last Reconciled 01/12/24 by Evens Sabillon MD albuterol sulfate 90 mcg/actuation 1 inh inhalation QID PRN ibuprofen 600 mg PO Q6H PRN loratadine 10 mg PO DAILY Tobacco use date assessed: 01/12/24 Dental Screening Dental Screen Date: 01/12/24 Did you have a dental visit in the last 12 months?: Yes Did you have a dental problem in the last 6 months where you did not have access to dental care?: No Was dental information given to patient?: Patient has dentist HPI f/ u asthma & anxiety HPI Details 18-year-old female presents to the offic e to discuss her medical conditions. I will be assuming her care as her previous provider has left the practice. Patient has history of asthma and anxiety. She uses albuterol episodically. She does not need to use the inhaler more than once or twice a month. Patient gives history of anxiety and depression since childhood. She was diagnosed with depression at age 14. She was given medications but she did not take them for a long time. Recently she was prescribed hydroxyzine that she has stopped taking. Lack of motivation is the main complaint she is having. She is dropped out of college in September of 2022. She is working at the [employer] 3 hours a day. She is looking for full-time employment. She also wants to pursue her interest in art. History of drug addiction present in her siblings. [facility] Medical History Hypotension Asthma Surgical History No pertinent past surgical history Family History Father No problems noted. Mother Rheumatoid arthritis HTN (hypertension) Lupus Maternal Aunt Breast cancer Family/Other Mental health disorder Substance use disorder Social History Housing: Apartment Alcohol intake: never Patient Tobacco Use Status: Never used Tobacco e-Cigarette/Vaping Use: Never Used Second Hand Smoke Exposure: No Substance Use Type: Marijuana service: No Current occupational status: employed Current occupational exposures/hazards: No Cognitive needs: No Hearing needs: No Vision needs: No Female Reproductive History Menstrual Age of Menarche: 10 Questionnaire PHQ-9 Over the last 2 weeks, how often have you been bothered by any of the following problems? 1. Little interest or pleasure in doing things: several days 2. Feeling down, depressed, or hopeless: more than half the days 3. Trouble falling or staying asleep, or sleeping too much: nearly every day 4. Feeling tired or having little energy: more than half the days 5. Poor appetite or overeating: nearly every day 6. Feeling bad about yourself - or that you are a failure or have let yourself or your family down: several days 7. Trouble concentrating on things, such as reading the newspaper or watching television: several days 8. Moving or speaking so slowly that other people could have noticed. Or the opposite - being so fidgety or restless that you have been moving around a lot more than usual: not at all 9. Thoughts that you would be better off or of hurting yourself in some way: several days Total score: 14 Depression Screening Interpretation: Positive Depression Screening Follow-up: Existing condition and Community Mental Health Worker F/U Depression Screening Done: Yes Source: Developed by Drs. Star Ballard, Tricia Perkins, Mirza Merino and colleagues, with an educational mone from [employer]. Thrive Questionnaire Date Thrive assessed: 01/12/24 I am a: Patient What is your living situation today?: I have a steady place to live Within the past 12 months, did the food you bought not last and you didn't have the money to get more?: Never true Within the past 12 months, did you worry whether your food would run out before you got money to buy more?: Never true Do you have trouble paying for medicines?: No Do you have trouble getting transportation to medical appointments?: No Do you have trouble paying your heating and electricity bill?: No Do you have trouble taking care of your child, family member or friend?: No Do you have trouble with day-to-day activities such as bathing, preparing meals, shopping, managing finances, etc.?: No Are you currently unemployed and looking for a job?: No Are you interested in more education?: No Currently or been in a relationship where the following occur: no concerns reported THRIVE Score: 0 AUDIT C Alcohol Use Questionnaire (AUDIT-C) 1. How often do you have a drink containing alcohol?: Never Total Score: 0 MABLE-7 AMB Questionnaire MABLE-7 Date MABLE - 7 assessed: 01/12/24 Feeling nervous, anxious, or on edge: 2 = More than half the days Not being able to stop or control worryin = Several days Worrying too much about different things: 1 = Several days Trouble relaxin = Several days Being so restless that it is hard to sit still: 1 = Several days Becoming easily annoyed or irritable: 2 = More than half the days Feeling afraid as if something awful might happen: 3 = Nearly every day Total MABLE-7 score (0-4 normal; 5-9 mild; 10-14 moderate; 15-21 severe): 11 Source: Developed by Drs. Star Ballard, Tricia Perkins, Mirza Merino and colleagues, with an educational mone from [employer]. Physical exam (Primary Care) Vital Signs: Last Vital Signs Pulse 64 01/12/24 08:51 BP 100/60 01/12/24 08:51 Pulse Ox 98 01/12/24 08:51 Oxygen Delivery Method Room Air 01/12/24 08:51 BMI result Body Mass Index 21.5 Tobacco/Smoking Status: Tobacco use Status Tobacco use date assessed 01/12/24 01/12/24 08:57 Patient Tobacco Use Status Never used Tobacco 01/12/24 08:57 e-Cigarette/Vaping Use Never Used 01/12/24 08:57 PHQ-9: PHQ-9 Score PHQ-9: Total score 14 01/12/24 08:57 Depression Screening Interpretation: Positive Depression Screening Follow-up: Existing condition and Community Mental Health Worker F/U Thrive Assessment: Date of Thrive Assessment Date Thrive assessed 01/12/24 01/12/24 08:57 Currently or been in a relationship where the following occur: no concerns reported Const General: cooperative and healthy appearing Nutritional Appearance: well nourished Orientation/consciousness: patient oriented x3 Limitations: no limitations HENMT Head: Yes normal to inspection Eyes General: appearance normal, both eyes and all related structures Neck Neck: Yes normal visual inspection Chest Chest palpation & inspection: normal palpation of entire chest wall Resp Effort & Inspection: normal respiratory effort Neuro General: patient oriented x3 Assessment and Plan Assessment & Plan (1) Anxiety with depression: Code(s): F41.8 - Other specified anxiety disorders Plan: Patient is reluctant to start medications. She has seen her brother getting addicted to medication and other substances and does not want to be on medications. She is tried therapist in the breast which did not help. She is willing to try another therapist. A request with community navigation will be made. (2) Asthma: Code(s): J45.909 - Unspecified asthma, uncomplicated Plan: Albuterol suffices to take care of her minimal asthma. Currently she does not request a refill. Medications: Discontinued hydroxyzine HCl Discontinued Reason: Doctor's Order 10 mg PO BID PRN 10 tabs 0RF anxiety F41.8 - Other specified anxiety disorders metronidazole Discontinued Reason: Doctor's Order 500 mg PO BID 7 days 14 tabs 0RF Coding Level of Care Code Est Pt Level 4 (64249) Diagnoses Anxiety with depression F41.8 Asthma J45.909
[2024-01-12 08:51] VITALS: BP 100/60; PULSE 64; O2SAT 98; BMI 21.5
== END 2024-01-12 11:26 | disposition home or self-care (01) ==
PROVIDERS: PCP Nurse Practitioner Family; Visit Provider Internal Medicine
DX: F41.8 Other specified anxiety disorders (principal); J45.909 Unspecified asthma, uncomplicated
CPT/HCPCS: 99214

== ENCOUNTER 2024-01-19 14:49 | Outpatient (REF) | payer OTHER, SELFPAY ==
[2024-01-20 11:49] LABS: CT PCR DETECTED (Not Detect.); NG PCR NOT DETECTED (Not Detect.)
[2024-01-20 14:05] LABS: BV Int Neg Control Negative (Negative); BV Int Pos Control Positive (Positive)
== END 2024-01-19 14:50 | disposition home or self-care (01) ==
LOC: HO.LNP 14:49
PROVIDERS: PCP Nurse Practitioner Family; Visit Provider Advanced Practice Midwife
DX: Z11.3 Encounter for screening for infections with a predominantly sexual mode of transmission (principal); L70.0 Acne vulgaris
CPT/HCPCS: 0353U; 87480; 87510; 87660; 99212

== ENCOUNTER 2024-01-19 14:49 | Outpatient (AMB) | payer OTHER, SELFPAY ==
--- NOTE | 2024-01-19 14:55 | A.OFFVIS_ITS ---
Intake Vital Signs 01/19/24 14:59 Height 5 ft 3 in Weight 120 lb BMI 21.3 BP 100/56 L Intake Visit Reasons: Vaginal cyst/DO NOT RS Intake Note: noticed a cyst on her inner bikini line that hasn't gone away. Would also like to go back on control prefers the pill. Director Of Marketing Communications Required: No Information Interpreted: non-clinical & clinical Buttonhole Marker: Buttonhole Marker Present (Lyla) Allergies dog dander Allergy (Mild, Verified 01/19/24 15:00) Sneezing Doritos Allergy (Unknown, Uncoded 01/19/24 15:00) Unknown pollen Allergy (Unknown, Uncoded 01/19/24 15:00) Unknown Soap Allergy (Unknown, Uncoded 01/19/24 15:00) Unknown Medication List - Last Reconciled 01/19/24 by Marsha Hatch CNM albuterol sulfate 90 mcg/actuation 1 inh inhalation QID PRN ibuprofen 600 mg PO Q6H PRN loratadine 10 mg PO DAILY Is last menstrual period known: Yes Last menstrual period: 12/26/23 Post menopausal: No HPI Vaginal cyst/DO NOT RS HPI Details Patient is here because she wants to check a cyst in her groin area that comes and goes that is not even visible now but she can feel it has not Bard bothering her at all right now and does not hurt but sometimes it can get more so she does shave. She is sexually active her last period was about 2 weeks ago. She uses condoms for control but she wants to get back on control pills she was on pills a couple of years ago with her primary care provider and she went off of them because after awhile she stopped getting a period and that bothered her a little bit they also did help her with her acne though she did notice some emotional changes and she does have a little bit of anxiety and depression so she is planning to be watchful for that she does not smoke cigarettes but she does smoke marijuana. She knows that it has not the greatest for her. She is wearing 'zit cover stars' to cover her acne [facility] Medical History Hypotension Asthma Surgical History No pertinent past surgical history Family History Father No problems noted. Mother Rheumatoid arthritis HTN (hypertension) Lupus Maternal Aunt Breast cancer Family/Other Mental health disorder Substance use disorder Social History Housing: Apartment Alcohol intake: never Patient Tobacco Use Status: Never used Tobacco e-Cigarette/Vaping Use: Never Used Second Hand Smoke Exposure: No Substance Use Type: Marijuana service: No Current occupational status: employed Current occupational exposures/hazards: No Cognitive needs: No Hearing needs: No Vision needs: No Female Reproductive History Menstrual Age of Menarche: 10 Duration of menses: 3-5 days Date of last menstrual period: 12/26/23 control method: none Physical Exam Vital Signs: Last Vital Signs BP 100/56 L 01/19/24 14:59 BMI result Body Mass Index 21.3 Assessment & Plan Assessment & Plan (1) Screen for sexually transmitted diseases: Code(s): Z11.3 - Encounter for screening for infections with a predominantly sexual mode of transmission (2) control counseling: Code(s): Z30.09 - Encounter for other general counseling and advice on contraception (3) Acne: Comment: Following with Dr. Macdonald. Using BPO, clindamycin, and tretinoin. Code(s): L70.9 - Acne, unspecified Qualifiers: Acne type: acne vulgaris Qualified Code(s): L70.0 - Acne vulgaris Plan Teaching about safer sex was stressed testing for gonorrhea chlamydia trich Gardnerella and Rosemarie was done she declines blood work for HIV hep B hep C and syphilis. Teaching done about control pills reviewed her personal history with the pills and how for her it made her periods go way and discussed the possible variations in a person's reaction to control pills but in a case if her. Goes away it has not harmful so long as she make sure that she isn't and she has not messed up on the pills I reviewed how to take the pills how to keep herself on track and use the dates sticker and to start the pills within the 1st 3 days of her menses. Rationale for this starting date discussed in terms of how it effects her future menstrual patterns. Reviewed danger signs if she ever experienced any clots or other difficulties to let us know. She did sort of feel different when she was on the pills before but not exactly depressed. She still in all would rather prevent a then deal with that but we will see her in 3-6 months to see how she is doing on the pills she was on the pills for about a year before so she thinks she will do okay with them. She will be due for her 1st Pap smear which I explained when she turns 19 testing for STIs was done as above. Patient congratulated for taking care of herself with safer sex. Orders: Orders Bacterial Vaginosis Panel Today Z11.3 - Encounter for screening for infections with a predominantly sexual mode of transmission CT NG by PCR Today Z11.3 - Encounter for screening for infections with a predominantly sexual mode of transmission Medications: New desog-e.estradiol/e.estradiol 0.15-0.02 mgx21 /0.01 mg x 5 1 tab PO DAILY 84 tabs 3RF Coding Level of Care Code Est Pt Level 3 (72808) Diagnoses Screen for sexually transmitted diseases Z11.3 control counseling Z30.09 Acne vulgaris L70.0 Acne type: acne vulgaris
[2024-01-19 14:59] VITALS: BP 100/56; BMI 21.3
== END 2024-01-19 15:44 | disposition home or self-care (01) ==
PROVIDERS: PCP Nurse Practitioner Family; Visit Provider Advanced Practice Midwife
DX: L70.0 Acne vulgaris (principal); Z30.09 Encounter for other general counseling and advice on contraception
CPT/HCPCS: 99213

== ENCOUNTER → 2024-01-26 09:49 | Outpatient (BNVA) | payer OTHER, SELFPAY | PROVIDERS: PCP Nurse Practitioner Family; Visit Provider Advanced Practice Midwife ==

== ENCOUNTER 2024-01-26 10:23 | Outpatient (REF) | payer OTHER, SELFPAY ==
[2024-01-26 12:35] LABS: HIV AB/AG Nonreactive (Nonreactive); HIV Num 1 0.06 S/CO (0.00-0.99); Hepatitis B Surface Antigen Negative (Negative); ~Hepatitis C Antibody Nonreactive (Nonreactive)
[2024-01-26 12:36] LABS: Syphilis Screen Nonreactive (Nonreactive)
== END 2024-01-26 10:24 | disposition home or self-care (01) ==
LOC: HO.HHCL 10:23
PROVIDERS: Visit Provider Advanced Practice Midwife
DX: Z11.3 Encounter for screening for infections with a predominantly sexual mode of transmission (principal); Z11.4 Encounter for screening for human immunodeficiency virus [HIV]
CPT/HCPCS: 36415; 86780; 86803; 87340; 87389

== ENCOUNTER 2024-03-06 11:24 | Outpatient (AMB) | payer OTHER, SELFPAY ==
[2024-03-06 11:42] VITALS: BP 100/56; BMI 21.1
--- NOTE | 2024-03-06 11:42 | A.OFFVIS_ITS ---
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 Security Researcher Required: No Information Interpreted: non-clinical & clinical Guillotine Trimmer: Guillotine Trimmer Present (Lyla) Allergies dog dander Allergy (Mild, Verified 03/06/24 11:44) Sneezing Doritos Allergy (Unknown, Uncoded 03/06/24 11:44) Unknown pollen Allergy (Unknown, Uncoded 03/06/24 11:44) Unknown Soap Allergy (Unknown, Uncoded 03/06/24 11:44) Unknown Medication List - Last Reconciled 03/06/24 by Marsha Hatch CNM albuterol sulfate 90 mcg/actuation 1 inh inhalation QID PRN azithromycin 1,000 mg (2 x 500 mg) PO ONCE 1 day desog-e.estradiol/e.estradiol 0.15-0.02 mgx21 /0.01 mg x 5 1 tab PO DAILY ibuprofen 600 mg PO Q6H PRN loratadine 10 mg PO DAILY Is last menstrual period known: Yes Last menstrual period: 02/26/24 Post menopausal: No Patient : No HPI HPI 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 She also wants test appear for the chlamydia she waited a full 3 weeks. She has also been getting more folliculitis in her bikini line. She does shave because she likes how it feels. Her periods on time though this 1 was 2 days later than she expected could she gets it on the 18. She likes being told pills she did not have any missed pills. [facility] Medical History Hypotension Asthma Surgical History No pertinent past surgical history Family History Father No problems noted. Mother Rheumatoid arthritis HTN (hypertension) Lupus Maternal Aunt Breast cancer Family/Other Mental health disorder Substance use disorder Social History Housing: Apartment Alcohol intake: never Patient Tobacco Use Status: Never used Tobacco e-Cigarette/Vaping Use: Never Used Second Hand Smoke Exposure: No Substance Use Type: Marijuana Patient : No service: No Current occupational status: employed Current occupational exposures/hazards: No Cognitive needs: No Hearing needs: No Vision needs: No Female Reproductive History Menstrual Age of Menarche: 10 Duration of menses: 6-7 days Date of last menstrual period: 02/26/24 control method: pills Total pregnancies: 0 Physical Exam Vital Signs: Last Vital Signs BP 100/56 L 03/06/24 11:42 BMI result Body Mass Index 21.1 Const General: healthy appearing, comfortable, no acute distress, well developed and alert Nutritional Appearance: average body habitus Orientation/consciousness: patient oriented x3 Limitations: no limitations HEENT Head: Yes normocephalic Neck Neck: Yes normal visual inspection Chest Chest palpation & inspection: normal inspection of the chest Breast/axilla inspection: normal inspection of the breasts and normal inspection of the axillae Breast/axilla palpation: normal palpation of the breasts and normal palpation of the axillae Resp Effort & Inspection: normal respiratory effort GI Inspection: Yes normal to inspection, No Abdominal wall edema and No distended Palpation (GI): Soft to palpation and nontender General: Yes bladder normal to palpation External Female Exam: normal external appearance and normal appearance of the urethra Speculum Exam - Vagina: normal appearance of the vagina, normal palpation and normal vaginal discharge Speculum Exam - Cervix: normal appearance of the cervix, normal palpation and nontender Bimanual exam- vagina & uterus: normal bimanual exam, normal palpation, uterine size normal, bladder normal to palpation, consistency normal, normal palpation, uterine mobility normal, uterine shape normal, No Cervical tenderness present, non-tender and no cervical motion tenderness Bimanual Exam- Adnexa, other: normal adnexae, no masses, normal and No adnexal tenderness Neuro General: patient oriented x3 Assessment & Plan Assessment & Plan (1) Screen for sexually transmitted diseases: Comment: Test of cure for chlamydia. Code(s): Z11.3 - Encounter for screening for infections with a predominantly sexual mode of transmission Category: Medical (2) Cervical cancer screening: Comment: States she has had the Gardasil vaccine series and educated that Paps will start when she is 19 Code(s): Z12.4 - Encounter for screening for malignant neoplasm of cervix Category: Medical (3) control counseling: Code(s): Z30.09 - Encounter for other general counseling and advice on contraception Category: Medical (4) Well woman exam with routine gynecological exam: Code(s): Z01.419 - Encounter for gynecological examination (general) (routine) without abnormal findings Category: Medical Plan -----Discussed in this visit the following: healthy balanced diet, regular and consistent exercise, getting recommended health screens, doing the best she can for her particular health concerns, kegel exercises, pap smear screening and followup recommendations, mammography screening and SBE, normal changes in cyc les in her life stage--- .----I reviewed available options for Control Methods and their associated side effect profiles. In particular, we discussed the method most of interest to her. She probably has many refills but I did re sent the prescription so there is no danger of her running out. -reviewed the common occurrence of folliculitis anywhere there was a pressure point on the skin or bacteria are otherwise encouraged to enter hair follicles. Shaving not recommended but it is a fashion choice popular these days. She is doing well on the pills. RTC 1 year she did not need blood tests for STIs she got them done in the past. Medications: Refilled desog-e.estradiol/e.estradiol 0.15-0.02 mgx21 /0.01 mg x 5 1 tab PO DAILY 84 tabs 3RF Coding Level of Care Code Est Pt Prev Care 18-39y(39834) Diagnoses Screen for sexually transmitted diseases Z11.3 Cervical cancer screening Z12.4 control counseling Z30.09 Well woman exam with routine gynecological exam Z01.419
== END 2024-03-06 12:59 | disposition home or self-care (01) ==
PROVIDERS: Visit Provider Advanced Practice Midwife
DX: Z01.419 Encounter for gynecological examination (general) (routine) without abnormal findings (principal)
CPT/HCPCS: 99395

== ENCOUNTER 2024-03-06 11:24 | Outpatient (REF) | payer OTHER, SELFPAY ==
[2024-03-07 11:33] LABS: CT PCR DETECTED (Not Detect.); NG PCR NOT DETECTED (Not Detect.)
[2024-03-07 13:36] LABS: BV Int Neg Control Negative (Negative); BV Int Pos Control Positive (Positive)
== END 2024-03-06 11:25 | disposition home or self-care (01) ==
LOC: HO.LNP 11:24
PROVIDERS: Visit Provider Advanced Practice Midwife
DX: Z11.3 Encounter for screening for infections with a predominantly sexual mode of transmission (principal)
CPT/HCPCS: 0353U; 87480; 87510; 87660; 99395

== ENCOUNTER 2024-04-14 13:05 | Outpatient (AMB) | payer OTHER, SELFPAY ==
[2024-04-14 13:16] VITALS: BP 112/60; BMI 20.9
--- NOTE | 2024-04-14 13:16 | MHC.OFFVIS ---
Vital Signs 04/14/24 13:16 Height 5 ft 3 in Weight 118 lb BMI 20.9 BP 112/60 Intake Visit Reasons: 3 month scott Senior Geologist Required: No Information Interpreted: clinical only Director Global Strategic Publisher Sales: Director Global Strategic Publisher Sales Present Allergies dog dander Allergy (Mild, Verified 04/14/24 13:19) Sneezing Doritos Allergy (Unknown, Uncoded 04/14/24 13:19) Unknown pollen Allergy (Unknown, Uncoded 04/14/24 13:19) Unknown Soap Allergy (Unknown, Uncoded 04/14/24 13:19) Unknown Medication List - Last Reconciled 04/14/24 by Marsha Hatch CNM albuterol sulfate 90 mcg/actuation 1 inh inhalation QID PRN desog-e.estradiol/e.estradiol 0.15-0.02 mgx21 /0.01 mg x 5 1 tab PO DAILY ibuprofen 600 mg PO Q6H PRN loratadine 10 mg PO DAILY Is last menstrual period known: Yes Last menstrual period: 04/11/24 HPI HPI 3 month scott: Details: Patient is here for test of cure for chlamydia but she is unsure if can have exam, because she is on day 3 of 4 of he period.. She has on the control pills. She thought her period was light but it develops that during exam her period was quite heavy so she will have to see if testing can be done.. She waited a month before having sex with her partner after re-treatment and she used condoms. [facility] Medical History Hypotension Asthma Surgical History No pertinent past surgical history Family History Father No problems noted. Mother Rheumatoid arthritis HTN (hypertension) Lupus Maternal Aunt Breast cancer Family/Other Mental health disorder Substance use disorder Social History Housing: Apartment Alcohol intake: never Patient Tobacco Use Status: Never used Tobacco e-Cigarette/Vaping Use: Never Used Second Hand Smoke Exposure: No Substance Use Type: Marijuana service: No Current occupational status: employed Current occupational exposures/hazards: No Cognitive needs: No Hearing needs: No Vision needs: No Female Reproductive History Menstrual Age of Menarche: 10 Date of last menstrual period: 04/11/24 Total pregnancies: 0 Physical Exam Vital Signs: Last Vital Signs BP 112/60 04/14/24 13:16 BMI result Body Mass Index 20.9 Other: Patient thought her menses was light before the exam so decision made to try for the test of cure exam however her menses is quite heavy at the very moment of the speculum exam so it has possible the test a few will come back unable to be read we will await testing results. External Female Exam: normal external appearance and normal appearance of the urethra Speculum Exam - Vagina: normal appearance of the vagina Speculum Exam - Cervix: normal appearance of the cervix and Cervical os closed Results Reviewed Results Reviewed: Name: Lynnette Balderas Age/Sex: 18/F : 2005 Unit#: [id number] Attend Dr: Marsha Hatch CNM Re03/06/24 Status: DEP REF Location: [facility] Disch: SPEC : [id number] ROXI: 03/06/24-UNK STATUS: COMP REQ : [id number] RECD: 03/06/24 [facility] DR: Marsha Hatch CNM COMP: 03/07/24-1134 ENTERED: 03/06/24-[address] [facility] [address]: ORDERED: CT NG by PCR QUERIES: CT NG Source: Vaginal Test Result Flag Reference CT PCR DETECTED A Not Detect. Detected results may be observed after successful antibiotic treatment due to target nucleic acids from residual non-viable chlamydia. As with many diagnostic tests, results from the Xpert CT/NG assay should be interpreted in conjunction with other laboratory and clinical data available to the clinician. Xpert CT/NG performance has not been evaluated in patients less than 14 years of age. The assay should not be used for the evaluation of suspected sexual abuse or for other medico-legal indications. Additional testing is recommended in any circumstance when false positive or false negative results could lead to adverse medical, social or psychological consequences. These results must be reported by the ordering clinician or clinical facility to the [facility] as required by state law. NG PCR NOT DETECTED Not Detect. A not detected test result does not exclude the possibility of infection because test results can be affected by improper specimen collection, concurrent antibiotic therapy, or the number of organisms in the specimen which may be below the sensitivity of the test. As with many diagnostic tests, results from the Xpert CT/NG assay should be interpreted in conjunction with other laboratory and clinical data available to the clinician. Xpert CT/NG performance has not been evaluated in patients less than 14 years of age. The assay should not be used for the evaluation of suspected sexual abuse or for other medico-legal indications. Additional testing is recommended in any circumstance when false positive or false negative results could lead to adverse medical, social or psychological consequences. Also positive chlamydia previous to that. Also her HIV testing hepatitis B hepatitis C and syphilis testing was all negative in January 2024. Assessment & Plan Assessment & Plan (1) Screen for sexually transmitted diseases: Comment: Test of cure for chlamydia. Code(s): Z11.3 - Encounter for screening for infections with a predominantly sexual mode of transmission Category: Medical Plan Reviewed her negative testing for STIs blood work and repeat testing for chlamydia done today however because her bleeding was so heavy at the moment of the speculum exam. If it comes back inadequate we will repeat the testing at her April 25 pill check visit. Reviewed her happiness with method she is happy that her other testing was negative but could not be found on the portal but it is negative in the computer. We will see her April 25 to review how she has doing with the pills overall. Coding Level of Care Code Est Pt Level 3 (28062) Diagnoses Screen for sexually transmitted diseases Z11.3
== END 2024-04-14 13:49 | disposition home or self-care (01) ==
LOC: HO.HWSM 13:05
PROVIDERS: PCP Nurse Practitioner Family; Visit Provider Advanced Practice Midwife
DX: Z11.3 Encounter for screening for infections with a predominantly sexual mode of transmission (principal)
CPT/HCPCS: 99213

== ENCOUNTER 2024-04-14 13:05 | Outpatient (REF) | payer OTHER, SELFPAY ==
[2024-04-14 19:15] LABS: Bacterial Vaginosis PCR NEGATIVE (Negative); Candida Group PCR NOT DETECTED (Not Detect); Candida glab krusei PCR NOT DETECTED (Not Detect); Trichomonas vaginalis PCR NOT DETECTED (Not Detect)
[2024-04-15 05:13] LABS: CT PCR NOT DETECTED (Not Detect.); NG PCR NOT DETECTED (Not Detect.)
== END 2024-04-14 13:06 | disposition home or self-care (01) ==
LOC: HO.LAB 13:05
PROVIDERS: PCP Nurse Practitioner Family; Visit Provider Advanced Practice Midwife
DX: N89.8 Other specified noninflammatory disorders of vagina (principal); Z20.2 Contact with and (suspected) exposure to infections with a predominantly sexual mode of transmission
CPT/HCPCS: 0352U; 0353U; 99212

== ENCOUNTER 2024-05-01 10:45 | Outpatient (AMB) | payer OTHER, SELFPAY ==
[2024-05-01 10:52] VITALS: BP 100/60; BMI 20.9
--- NOTE | 2024-05-01 10:52 | MHC.OFFVIS ---
Vital Signs 05/01/24 10:52 Height 5 ft 3 in Weight 118 lb BMI 20.9 BP 100/60 Intake Visit Reasons: Pill Check Technical Administrative Assistant Required: No Technical Administrative Assistant Services: Technical Administrative Assistant Present Information Interpreted: clinical only Redrawer: Redrawer Present Allergies dog dander Allergy (Mild, Verified 05/01/24 10:53) Sneezing Doritos Allergy (Unknown, Uncoded 05/01/24 10:53) Unknown pollen Allergy (Unknown, Uncoded 05/01/24 10:53) Unknown Soap Allergy (Unknown, Uncoded 05/01/24 10:53) Unknown Medication List - Last Reconciled 05/01/24 by Marsha Hatch CNM albuterol sulfate 90 mcg/actuation 1 inh inhalation QID PRN desog-e.estradiol/e.estradiol 0.15-0.02 mgx21 /0.01 mg x 5 1 tab PO DAILY ibuprofen 600 mg PO Q6H PRN loratadine 10 mg PO DAILY Is last menstrual period known: Yes Last menstrual period: 04/11/24 Do you need a note to return to daycare/school/sports/work: No HPI HPI Pill Check: Details: Patient is here for pill check and she also wants a double check on STDs she had come in for test of cure recently which was negative but condom broke recently so she just wants to be extra careful an extra sure she is nervous about when she has to get her Pap smear next year her she is heard it painful so wants to talk about that too. She has not having any problems with the pills and likes them and takes her pill every day at 08:30 in the evening that has the time she has the most time. She has not having any negative side effects or danger signs with them. [facility] Medical History Hypotension Asthma Surgical History No pertinent past surgical history Family History Father No problems noted. Mother Rheumatoid arthritis HTN (hypertension) Lupus Maternal Aunt Breast cancer Family/Other Mental health disorder Substance use disorder Social History Housing: Apartment Alcohol intake: never Patient Tobacco Use Status: Never used Tobacco e-Cigarette/Vaping Use: Never Used Second Hand Smoke Exposure: No Substance Use Type: Marijuana service: No Current occupational status: employed Current occupational exposures/hazards: No Cognitive needs: No Hearing needs: No Vision needs: No Female Reproductive History Menstrual Age of Menarche: 10 Duration of menses: 3-5 days Date of last menstrual period: 04/11/24 control method: pills and condoms Total pregnancies: 0 Physical Exam Vital Signs: Last Vital Signs BP 100/60 05/01/24 10:52 BMI result Body Mass Index 20.9 External Female Exam: normal external appearance and normal appearance of the urethra Speculum Exam - Vagina: normal appearance of the vagina and normal vaginal discharge Speculum Exam - Cervix: normal appearance of the cervix and Cervical os closed Assessment & Plan Assessment & Plan (1) Screen for sexually transmitted diseases: Comment: Test of cure for chlamydia. Code(s): Z11.3 - Encounter for screening for infections with a predominantly sexual mode of transmission Category: Medical (2) control counseling: Code(s): Z30.09 - Encounter for other general counseling and advice on contraception Category: Medical (3) Cervical cancer screening: Comment: States she has had the Gardasil vaccine series and educated that Paps will start when she is 19 Code(s): Z12.4 - Encounter for screening for malignant neoplasm of cervix Category: Medical (4) Surveillance for control, oral contraceptives: Code(s): Z30.41 - Encounter for surveillance of contraceptive pills Category: Medical Plan Reviewed her control pills and what symptoms would require calling reviewed how she is taking them she is doing very well with them now having any problems reviewed to call if she ever got her refill and it says that they are no more refills left otherwise we will see her in a year and I will double check to make sure that she is been prescribed a year supply. Her next quality control inspector heading exam will also include the Pap smear and I reviewed exactly how we do with that with the Cytobrush in the cervical scraper. I showed the patient the tools that are used. She is well-versed in safer sex. We will see her in 1 year testing done today for gonorrhea chlamydia trichomoniasis Gardnerella and Rosemarie her cervix looked perfectly healthy pink nulliparous with normal scant clear mucus consistent with control pills. Medications: Refilled desog-e.estradiol/e.estradiol 0.15-0.02 mgx21 /0.01 mg x 5 1 tab PO DAILY 84 tabs 3RF Coding Level of Care Code Est Pt Level 3 (82190) Diagnoses Screen for sexually transmitted diseases Z11.3 control counseling Z30.09 Cervical cancer screening Z12.4 Surveillance for control, oral contraceptives Z30.41
== END 2024-05-01 11:52 | disposition home or self-care (01) ==
LOC: HO.HWSM 10:45
PROVIDERS: PCP Nurse Practitioner Family; Visit Provider Advanced Practice Midwife
DX: Z30.41 Encounter for surveillance of contraceptive pills (principal)
CPT/HCPCS: 99213

== ENCOUNTER 2024-05-01 10:45 | Outpatient (REF) | payer OTHER, SELFPAY ==
[2024-05-02 13:40] LABS: Bacterial Vaginosis PCR NEGATIVE (Negative); Candida Group PCR DETECTED (Not Detect); Candida glab krusei PCR NOT DETECTED (Not Detect); Trichomonas vaginalis PCR NOT DETECTED (Not Detect)
[2024-05-02 14:04] LABS: CT PCR NOT DETECTED (Not Detect.); NG PCR NOT DETECTED (Not Detect.)
== END 2024-05-01 10:46 | disposition home or self-care (01) ==
LOC: HO.LAB 10:45
PROVIDERS: PCP Nurse Practitioner Family; Visit Provider Advanced Practice Midwife
DX: Z30.41 Encounter for surveillance of contraceptive pills (principal); N89.8 Other specified noninflammatory disorders of vagina
CPT/HCPCS: 0352U; 0353U; 99212

== ENCOUNTER 2024-05-10 15:27 | Outpatient (AMB) | payer OTHER, SELFPAY ==
--- NOTE | 2024-05-10 15:29 | A.OFFPC_ITS ---
Vital Signs 05/10/24 15:31 Height 5 ft 3 in Weight 116 lb 6 oz BMI 20.6 BP 130/62 Blood Pressure Location Lt brachial Position Sitting Pulse 103 H Pulse Source Pulse Oximeter Pulse Oximetry (%) 100 Oxygen Delivery Method Room Air Intake Visit Reasons: Pimple like bump on the back of my head and exzema Intake Note: Patient is here to follow up on Pimple like bump on the back of head and eczema . Mash Filter Press Operator Required: No Magnetic Tape Composer Operator: Not Required per policy Accompanied by: Self / Same As Patient Allergies dog dander Allergy (Mild, Verified 05/12/24 14:07) Sneezing Doritos Allergy (Unknown, Uncoded 05/12/24 14:07) Unknown pollen Allergy (Unknown, Uncoded 05/12/24 14:07) Unknown Soap Allergy (Unknown, Uncoded 05/12/24 14:07) Unknown Medication List - Last Reconciled 05/12/24 by Evens Sabillon MD albuterol sulfate 90 mcg/actuation 1 inh inhalation QID PRN desog-e.estradiol/e.estradiol 0.15-0.02 mgx21 /0.01 mg x 5 1 tab PO DAILY ibuprofen 600 mg PO Q6H PRN loratadine 10 mg PO DAILY triamcinolone acetonide 0.025% 1 appl topical BID Tobacco use date assessed: 05/10/24 Dental Screening Dental Screen Date: 01/12/24 HPI Pimple like bump on the back of my head and exzema HPI Details 18-year-old female presents to the [facility] e to discuss her medical condition. At the time of booking this appointment, patient had a pimple on the back of her scalp. This was a week ago. The pimple was painful. It resolved without bleeding. Patient also has roughened skin around the elbow with raised edges. Symptoms of itchiness present. [facility] Medical History Hypotension Asthma Surgical History No pertinent past surgical history Family History Father No problems noted. Mother Rheumatoid arthritis HTN (hypertension) Lupus Maternal Aunt Breast cancer Family/Other Mental health disorder Substance use disorder Social History (Updated 05/10/24 @ 15:34 by YOANA Julian) Housing: Apartment Alcohol intake: never Patient Tobacco Use Status: Never used Tobacco e-Cigarette/Vaping Use: Never Used Second Hand Smoke Exposure: No Substance Use Type: Marijuana Substance Use Frequency: Daily service: No Current occupational status: employed Current occupational exposures/hazards: No Cognitive needs: No Hearing needs: No Vision needs: No Female Reproductive History Menstrual Age of Menarche: 10 Questionnaire Thrive Questionnaire Date Thrive assessed: 01/12/24 MABLE-7 AMB Questionnaire MABLE-7 Date MABLE - 7 assessed: 01/12/24 Source: Developed by Drs. Star Ballard, Triica Perkins, Mirza Merino and colleagues, with an educational mone from [employer]. Physical exam (Primary Care) Vital Signs: Last Vital Signs Pulse 103 H 05/10/24 15:31 BP 130/62 05/10/24 15:31 Pulse Ox 100 05/10/24 15:31 Oxygen Delivery Method Room Air 05/10/24 15:31 BMI result Body Mass Index 20.6 Tobacco/Smoking Status: Tobacco use Status Tobacco use date assessed 05/10/24 05/10/24 15:35 Patient Tobacco Use Status Never used Tobacco 05/10/24 15:35 e-Cigarette/Vaping Use Never Used 05/10/24 15:35 Thrive Assessment: Date of Thrive Assessment Date Thrive assessed 01/12/24 05/10/24 15:35 Const General: cooperative and healthy appearing Nutritional Appearance: well nourished Orientation/consciousness: patient oriented x3 Limitations: no limitations HENMT Head: Yes normal to inspection Eyes General: appearance normal, both eyes and all related structures Neck Neck: Yes normal visual inspection Chest Chest palpation & inspection: normal palpation of entire chest wall Resp Effort & Inspection: normal respiratory effort Skin Other: Scalp: No erythematous lesion present. Right and left elbow: Dorsum side: Dry skin, scaly lesions. Neuro General: patient oriented x3 Assessment and Plan Assessment & Plan (1) Asthma: Code(s): J45.909 - Unspecified asthma, uncomplicated (2) Eczema: Code(s): L30.9 - Dermatitis, unspecified Plan: Steroid cream has been ordered. Keep the area dry. Plan Condition is stable. Blood work has been ordered. Orders: Orders Complete Blood Count no Diff 05/10/24 J45.909 - Unspecified asthma, uncomplicated Thyroid Stimulating Hormone 05/10/24 J45.909 - Unspecified asthma, uncomplicated Basic Metabolic Panel 05/10/24 J45.909 - Unspecified asthma, uncomplicated Liver Panel 05/10/24 J45.909 - Unspecified asthma, uncomplicated Medications: New triamcinolone acetonide 0.025% 1 appl topical BID 15 grams 0RF Coding Level of Care Code Est Pt Level 3 (06504) Complex EM visit Add On G2211 Diagnoses Asthma J45.909 Eczema L30.9
[2024-05-10 15:31] VITALS: BP 130/62; PULSE 103; O2SAT 100; BMI 20.6
== END 2024-05-10 16:37 | disposition home or self-care (01) ==
PROVIDERS: PCP Nurse Practitioner Family; Visit Provider Internal Medicine
DX: J45.909 Unspecified asthma, uncomplicated (principal); L30.9 Dermatitis, unspecified
CPT/HCPCS: 99213; G2211

== ENCOUNTER 2024-06-16 13:27 | Outpatient (AMB) | payer OTHER, SELFPAY ==
--- NOTE | 2024-06-16 13:30 | MHC.OFFVIS ---
Vital Signs 06/16/24 13:34 Height 5 ft 3 in Weight 116 lb BMI 20.5 BP 100/62 Intake Visit Reasons: ? infection Diabetes Specialist Services: Diabetes Specialist Present Information Interpreted: clinical only Group Chief Operator: Group Chief Operator Present Allergies dog dander Allergy (Mild, Verified 06/16/24 13:31) Sneezing Doritos Allergy (Unknown, Uncoded 06/16/24 13:31) Unknown pollen Allergy (Unknown, Uncoded 06/16/24 13:31) Unknown Soap Allergy (Unknown, Uncoded 06/16/24 13:31) Unknown Medication List - Last Reconciled 06/16/24 by Marsha Hatch CNM albuterol sulfate 90 mcg/actuation 1 inh inhalation QID PRN desog-e.estradiol/e.estradiol 0.15-0.02 mgx21 /0.01 mg x 5 1 tab PO DAILY ibuprofen 600 mg PO Q6H PRN loratadine 10 mg PO DAILY miconazole nitrate 2% (Miconazole-7) 1 appful vaginal BEDTIME 7 days triamcinolone acetonide 0.025% 1 appl topical BID Is last menstrual period known: Yes Last menstrual period: 06/07/24 HPI HPI ? infection: Details: Patient is here because she has a sour smell to her vaginal discharge and she wants to get it checked she says she has not been sexually active since she was last treated for the chlamydia she did use a treatment for yeast infection but the tube broke so she could not finish the treatment that was in May then she got her period the end of May it ended on June 11 and she has noticed it since then. She is wondering if it is yeast because she did not get to finish the cream. She also wants her pills refilled because she is going to be losing insurance on her birthday in August when she turns 19. She is also wondering if she can have her Pap smear done before her birthday., for this reason. [facility] Medical History Hypotension Asthma Surgical History No pertinent past surgical history Family History Father No problems noted. Mother Rheumatoid arthritis HTN (hypertension) Lupus Maternal Aunt Breast cancer Family/Other Mental health disorder Substance use disorder Social History Housing: Apartment Alcohol intake: never Patient Tobacco Use Status: Never used Tobacco e-Cigarette/Vaping Use: Never Used Second Hand Smoke Exposure: No Substance Use Type: Marijuana service: No Current occupational status: employed Current occupational exposures/hazards: No Cognitive needs: No Hearing needs: No Vision needs: No Female Reproductive History Menstrual Age of Menarche: 10 Duration of menses: 3-5 days Date of last menstrual period: 06/07/24 control method: pills Total pregnancies: 0 Physical Exam Vital Signs: Last Vital Signs BP 100/62 06/16/24 13:34 BMI result Body Mass Index 20.5 Other: Exam there is a creamy white slightly clingy discharge in the vagina cultures taken will await results patient is feeling that it is yeast again it does not appear to be but she requested fluconazole with the promised that she would only take it if it is really present and necessary. External Female Exam: normal external appearance and normal appearance of the urethra Speculum Exam - Vagina: normal appearance of the vagina and normal vaginal discharge Speculum Exam - Cervix: normal appearance of the cervix and Cervical os closed Results Reviewed Results Reviewed: Name: Lynnette Balderas Age/Sex: 18/F : 2005 Unit#: [id number] Attend Dr: Marsha Hatch CNM Re05/01/24 Status: DEP REF Location: [facility] Disch: SPEC : [id number] ROXI: 05/01/24-UNK STATUS: COMP REQ : [id number] RECD: 05/02/24-[address]: Marsha Hatch CNM COMP: 05/02/24-1340 ENTERED: 05/02/24-[address]: Virginia Joseph ORDERED: BV Panel Test Result Flag Reference TV PCR NOT DETECTED Not Detect BV PCR NEGATIVE Negative The BV organism targets of the Xpert Xpress MVP test can be commensal in women; Xpert Xpress MVP positive results for bacterial vaginosis should be considered in conjunction with other clinical and patient information to determine the disease status. Organisms that are not detected by the Xpert Xpress MVP test have also been reported to be associated with BV and aerobic vaginitis. The Xpert Xpress MVP test performance has not been evaluated in patients under the age of 14. [facility] PCR DETECTED A Not Detect Can gla-kru NOT DETECTED Not Detect Name: Lynnette Balderas Age/Sex: 18/F : 2005 Unit#: [id number] Attend Dr: Marsha Hatch CNM Re03/06/24 Status: DEP REF Location: [facility] Disch: SPEC : [id number] ROXI: 03/06/24-UNK STATUS: COMP REQ : [id number] RECD: 03/06/[address]: Marsha Hatch CNM COMP: 03/07/24 ENTERED: 03/06/[address]: ORDERED: CT NG by PCR QUERIES: CT NG Source: Vaginal Test Result Flag Reference CT PCR DETECTED A Not Detect. Detected results may be observed after successful antibiotic treatment due to target nucleic acids from residual non-viable chlamydia. As with many diagnostic tests, results from the Xpert CT/NG assay should be interpreted in conjunction with other laboratory and clinical data available to the clinician. Xpert CT/NG performance has not been evaluated in patients less than 14 years of age. The assay should not be used for the evaluation of suspected sexual abuse or for other medico-legal indications. Additional testing is recommended in any circumstance when false positive or false negative results could lead to adverse medical, social or psychological consequences. These results must be reported by the ordering clinician or clinical facility to the [facility] as required by state law. NG PCR NOT DETECTED Not Detect. A not detected test result does not exclude the possibility of infection because test results can be affected by improper specimen collection, concurrent antibiotic therapy, or the number of organisms in the specimen which may be below the sensitivity of the test. As with many diagnostic tests, results from the Xpert CT/NG assay should be interpreted in conjunction with other laboratory and clinical data available to the clinician. Xpert CT/NG performance has not been evaluated in patients less than 14 years of age. The assay should not be used for the evaluation of suspected sexual abuse or for other medico-legal indications. Additional testing is recommended in any circumstance when false positive or false negative results could lead to adverse medical, social or psychological consequences. Assessment & Plan Assessment & Plan (1) Surveillance for control, oral contraceptives: Code(s): Z30.41 - Encounter for surveillance of contraceptive pills Category: Medical (2) Screen for sexually transmitted diseases: Comment: Test of cure for chlamydia. Code(s): Z11.3 - Encounter for screening for infections with a predominantly sexual mode of transmission Category: Medical (3) Vaginal discharge: Code(s): N89.8 - Other specified noninflammatory disorders of vagina Category: Medical Plan Teaching done about normal vaginal chris and then every thing needs to be treated even if either Gardnerella or yeast show up on these test they do not necessarily need to be treated the discharge did look slightly creamy in abnormal and there was slight redness to the vaginal mucosa however we will await tests results. At her request I am sending a prescription for fluconazole but with the promised that she will only treat it if it is necessary that the fluconazole. I am sending a prescription refill on her control pills to see if they will be covered I can not say what will be covered by her insurance or not. As regards her annual exam and Pap smear that is try to schedule it for just before her birthday as close as possible so possibly the end of July the beginning of August. Medications: New fluconazole may repeat second dose 72 hrs after first dose if symptoms persist 150 mg PO Q3D 2 doses 2 tabs 0RF Refilled desog-e.estradiol/e.estradiol 0.15-0.02 mgx21 /0.01 mg x 5 1 tab PO DAILY 84 tabs 3RF Coding Level of Care Code Est Pt Level 3 (10715) Diagnoses Surveillance for control, oral contraceptives Z30.41 Screen for sexually transmitted diseases Z11.3 Vaginal discharge N89.8
[2024-06-16 13:34] VITALS: BP 100/62; BMI 20.5
== END 2024-06-16 14:04 | disposition home or self-care (01) ==
LOC: HO.HWSM 13:27
PROVIDERS: PCP Nurse Practitioner Family; Visit Provider Advanced Practice Midwife
DX: N89.8 Other specified noninflammatory disorders of vagina (principal); Z30.41 Encounter for surveillance of contraceptive pills
CPT/HCPCS: 99213

== ENCOUNTER 2024-06-16 13:27 | Outpatient (REF) | payer OTHER, SELFPAY ==
[2024-06-17 02:25] LABS: CT PCR NOT DETECTED (Not Detect.); NG PCR NOT DETECTED (Not Detect.)
[2024-06-17 11:26] LABS: Bacterial Vaginosis PCR POSITIVE (Negative); Candida Group PCR NOT DETECTED (Not Detect); Candida glab krusei PCR NOT DETECTED (Not Detect); Trichomonas vaginalis PCR NOT DETECTED (Not Detect)
== END 2024-06-16 13:28 | disposition home or self-care (01) ==
LOC: HO.LAB 13:27
PROVIDERS: PCP Nurse Practitioner Family; Visit Provider Advanced Practice Midwife
DX: N89.8 Other specified noninflammatory disorders of vagina (principal); Z20.2 Contact with and (suspected) exposure to infections with a predominantly sexual mode of transmission; Z11.3 Encounter for screening for infections with a predominantly sexual mode of transmission; Z30.41 Encounter for surveillance of contraceptive pills
CPT/HCPCS: 0352U; 87491; 87591; 99212

== ENCOUNTER 2024-06-27 14:47 | Outpatient (AMB) | payer OTHER, SELFPAY ==
[2024-06-27 15:10] VITALS: BP 110/60; BMI 20.5
--- NOTE | 2024-06-27 15:10 | A.OFFVIS_ITS ---
Vital Signs 06/27/24 15:10 Height 5 ft 3 in Weight 116 lb BMI 20.5 BP 110/60 Intake Visit Reasons: Recheck Bv? Information Interpreted: clinical only Medical Administrative Specialist: Medical Administrative Specialist Present Allergies dog dander Allergy (Mild, Verified 06/27/24 15:10) Sneezing Doritos Allergy (Unknown, Uncoded 06/27/24 15:10) Unknown pollen Allergy (Unknown, Uncoded 06/27/24 15:10) Unknown Soap Allergy (Unknown, Uncoded 06/27/24 15:10) Unknown Medication List - Last Reviewed 06/27/24 by Sofiya Franco, CHARLETTE albuterol sulfate 90 mcg/actuation 1 inh inhalation QID PRN desog-e.estradiol/e.estradiol 0.15-0.02 mgx21 /0.01 mg x 5 1 tab PO DAILY fluconazole 150 mg PO Q3D 2 doses ibuprofen 600 mg PO Q6H PRN loratadine 10 mg PO DAILY miconazole nitrate 2% (Miconazole-7) 1 appful vaginal BEDTIME 7 days triamcinolone acetonide 0.025% 1 appl topical BID Is last menstrual period known: Yes Last menstrual period: 06/07/24 Do you need a note to return to daycare/school/sports/work: No HPI HPI Recheck Bv?: Details: Patient is on the scheduled today for question check BV. The only symptom she had about BV was odor that she had last week and she was assessed on 06/16 and the testing did come back showing BV she treated it but she just finished doing the treatment. She has not been sexually active since May she has the 1 partner. So she has had no sexual activity since she is on her control pills she is admittedly very anxious about running out of control and being left without control in between insurance gaps she has insurance that ends on her birthday and she did just start a new job but it started this week and she has 2 weeks of training to go but then once that is done she has to work 30 days to qualify for for healthcare benefits and she is concerned about a gap in covered and running out she did not think she had any refills on her pills we reviewed previous script that went systems as is 8 4 3 packs pills with 3 refills to [facility] on [address] she is going to go home and check her pill pack and I recommend that she seek refills on her pills as soon as she is allowed to do so by her insurance so she has a little bit of a supply available to her additionally she may want to check with [facility] to see if she happens to be without prescription coverage whether not she would be able to access control via their services.. Decision was made in this visit to not lose test for BV as she has no symptoms and also she was just treated and just finished the treatment. We reviewed the control pills and taking of them and timing and issues with prescriptions [facility] Medical History Hypotension Asthma Surgical History No pertinent past surgical history Family History Father No problems noted. Mother Rheumatoid arthritis HTN (hypertension) Lupus Maternal Aunt Breast cancer Family/Other Mental health disorder Substance use disorder Social History Housing: Apartment Alcohol intake: never Patient Tobacco Use Status: Never used Tobacco e-Cigarette/Vaping Use: Never Used Second Hand Smoke Exposure: No Substance Use Type: Marijuana service: No Current occupational status: employed Current occupational exposures/hazards: No Cognitive needs: No Hearing needs: No Vision needs: No Female Reproductive History Menstrual Age of Menarche: 10 Duration of menses: 3-5 days Date of last menstrual period: 06/07/24 control method: pills Physical Exam Vital Signs: Last Vital Signs BP 110/60 06/27/24 15:10 BMI result Body Mass Index 20.5 Assessment & Plan Assessment & Plan (1) Surveillance for control, oral contraceptives: Code(s): Z30.41 - Encounter for surveillance of contraceptive pills Category: Medical Plan Patient is on the scheduled today for question check BV. The only symptom she had about BV was odor that she had last week and she was assessed on 06/16 and the testing did come back showing BV she treated it but she just finished doing the treatment. She has not been sexually active since May she has the 1 partner. So she has had no sexual activity since she is on her control pills she is admittedly very anxious about running out of control and being left without control in between insurance gaps she has insurance that ends on her birthday and she did just start a new job but it started this week and she has 2 weeks of training to go but then once that is done she has to work 30 days to qualify for for healthcare benefits and she is concerned about a gap in covered and running out she did not think she had any refills on her pills we reviewed previous script that went systems as is 8 4 3 packs pills with 3 refills to [facility] [address] she is going to go home and check her pill pack and I recommend that she seek refills on her pills as soon as she is allowed to do so by her insurance so she has a little bit of a supply available to her additionally she may want to check with [facility] to see if she happens to be without prescription coverage whether not she would be able to access control via their services.. Decision was made in this visit to not lose test for BV as she has no symptoms and also she was just treated and just finished the treatment. We reviewed the control pills and taking of them and timing and issues with prescriptions Coding Level of Care Code Est Pt Level 3 (55170) Diagnoses Surveillance for control, oral contraceptives Z30.41
== END 2024-06-27 16:36 | disposition home or self-care (01) ==
LOC: HO.HWSM 14:47
PROVIDERS: PCP Nurse Practitioner Family; Visit Provider Advanced Practice Midwife
DX: Z30.41 Encounter for surveillance of contraceptive pills (principal)
CPT/HCPCS: 99213

== ENCOUNTER → 2024-06-27 14:47 | Outpatient (BNVA) | payer OTHER, SELFPAY | PROVIDERS: PCP Nurse Practitioner Family; Visit Provider Advanced Practice Midwife | DX: Z30.41 Encounter for surveillance of contraceptive pills (principal) | CPT/HCPCS: 99212 ==

== ENCOUNTER 2024-07-04 08:33 | Outpatient (AMB) | payer OTHER, SELFPAY ==
[2024-07-04 08:38] VITALS: BP 116/62; PULSE 70; O2SAT 98; BMI 21.6
--- NOTE | 2024-07-04 08:38 | MHC.PC.OV ---
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 Accompanied by: Self / Same As Patient Allergies dog dander Allergy (Mild, Verified 07/04/24 08:50) Sneezing pollen Allergy (Unknown, Uncoded 07/04/24 08:50) Unknown Soap Allergy (Unknown, Uncoded 07/04/24 08:50) Unknown Medication List - Last Reconciled 07/04/24 by Keila Dorsey PA-C albuterol sulfate 90 mcg/actuation 1 inh inhalation QID PRN desog-e.estradiol/e.estradiol 0.15-0.02 mgx21 /0.01 mg x 5 1 tab PO DAILY ibuprofen 600 mg PO Q6H PRN loratadine 10 mg PO DAILY triamcinolone acetonide 0.025% 1 appl topical BID Tobacco use date assessed: 05/10/24 Dental Screening Dental Screen Date: 01/12/24 HPI PHYSICAL HPI Details 18-year-old female with past medical history of anxiety, asthma last seen by Dr. Sabillon May 2024 coming in for annual visit.? In review of the notes, patient was seen by [facility] gynecology treated for BV. Patient tells us her BV symptoms have resolved and she is no longer having a foul odor. She does mentioned she has been having increased anxiety and depression and was previously seeing a counselor. She has a history of asthma and has noticed she has been having increased shortness of breath and having to use her inhaler daily with nighttime awakenings 2-3 times per week. She does feel like the anxiety contributes to her asthma. [facility] Medical History Hypotension Asthma Surgical History No pertinent past surgical history Family History Father HTN (hypertension) Diabetes Mother Rheumatoid arthritis HTN (hypertension) Lupus Maternal Aunt Breast cancer Family/Other Mental health disorder Substance use disorder Social History Housing: Apartment Alcohol intake: never Patient Tobacco Use Status: Never used Tobacco e-Cigarette/Vaping Use: Never Used Second Hand Smoke Exposure: No Substance Use Type: Marijuana service: No Current occupational status: employed Current occupational exposures/hazards: No Cognitive needs: No Hearing needs: No Vision needs: No Female Reproductive History Menstrual Age of Menarche: 10 Questionnaire PHQ-9 Over the last 2 weeks, how often have you been bothered by any of the following problems? 1. Little interest or pleasure in doing things: several days 2. Feeling down, depressed, or hopeless: more than half the days 3. Trouble falling or staying asleep, or sleeping too much: nearly every day 4. Feeling tired or having little energy: more than half the days 5. Poor appetite or overeating: nearly every day 6. Feeling bad about yourself - or that you are a failure or have let yourself or your family down: several days 7. Trouble concentrating on things, such as reading the newspaper or watching television: several days 8. Moving or speaking so slowly that other people could have noticed. Or the opposite - being so fidgety or restless that you have been moving around a lot more than usual: not at all 9. Thoughts that you would be better off or of hurting yourself in some way: several days Total score: 14 Depression Screening Interpretation: Positive Depression Screening Follow-up: Existing condition and Community Mental Health Worker F/U Depression Screening Done: Yes Source: Developed by Drs. Star Ballard, Tricia Perkins, Mirza Merino and colleagues, with an educational mone from [employer]. Thrive Questionnaire Date Thrive assessed: 01/12/24 AUDIT C Alcohol Use Questionnaire (AUDIT-C) 1. How often do you have a drink containing alcohol?: Never Total Score: 0 MABLE-7 AMB Questionnaire MABLE-7 Date MABLE - 7 assessed: 01/12/24 Feeling nervous, anxious, or on edge: 0 = Not at all Not being able to stop or control worryin = Several days Worrying too much about different things: 1 = Several days Trouble relaxin = Not at all Being so restless that it is hard to sit still: 1 = Several days Becoming easily annoyed or irritable: 3 = Nearly every day Feeling afraid as if something awful might happen: 1 = Several days Total MABLE-7 score (0-4 normal; 5-9 mild; 10-14 moderate; 15-21 severe): 7 Source: Developed by Drs. Star Ballard, Tricia Perkins, Mirza Merino and colleagues, with an educational mone from [employer]. MABLE-7 Assessment Billing MABLE-7 Assessment Tool: MABLE-7 Assessment 13861 Review of Systems Const Denies body aches, Denies fatigue, Denies fever(s), Denies frequent falls, Reports headache(s) (occasional ) and Denies weakness Eyes Reports no additional complaints and Denies change in vision ENT Denies dysphagia, Denies dizziness, Denies facial pain, Reports headache(s) (occasional ), Denies nasal congestion and Denies odynophagia Card Denies chest pain, Denies syncope, Denies irregular heart rhythm, Denies leg edema, Denies lightheadedness and Reports dyspnea Resp Denies cough and Reports dyspnea GI Denies constipation, Denies dysphagia, Denies dyspepsia, Denies diarrhea, Denies nausea, Denies odynophagia and Denies vomiting Denies urinary frequency, Denies dysuria, Denies urinary hesitancy and Denies urinary urgency Musc Denies back pain and Denies myalgias Skin/Breast Reports system reviewed and no additional complaints, except as documented Neuro Denies dizziness, Denies syncope, Denies frequent falls, Reports headache(s) (occasional ) and Denies weakness Psych Reports as per HPI Endo Denies fatigue Physical exam (Primary Care) Vital Signs: Last Vital Signs Pulse 70 07/04/24 08:38 BP 116/62 07/04/24 08:38 Pulse Ox 98 07/04/24 08:38 Oxygen Delivery Method Room Air 07/04/24 08:38 BMI result Body Mass Index 21.6 Tobacco/Smoking Status: Tobacco use Status Tobacco use date assessed 05/10/24 07/04/24 08:44 Patient Tobacco Use Status Never used Tobacco 07/04/24 08:44 e-Cigarette/Vaping Use Never Used 07/04/24 08:44 PHQ-9: PHQ-9 Score PHQ-9: Total score 14 07/04/24 08:47 Depression Screening Interpretation: Positive Depression Screening Follow-up: Existing condition and Community Mental Health Worker F/U Thrive Assessment: Date of Thrive Assessment Date Thrive assessed 01/12/24 07/04/24 08:44 Const General: cooperative, healthy appearing, comfortable and no acute distress Orientation/consciousness: patient oriented x3 HENMT Head: Yes normocephalic Ears: hearing grossly normal bilaterally, external ears normal, TM's normal bilaterally and EAC's normal General nose exam: Normal external nose present Face and sinus: Yes normal facial exam and Yes sinuses nontender Mouth: Normal oral and palatal mucosa present and tongue normal Throat: Yes posterior oropharynx normal Eyes General: appearance normal, both eyes and all related structures Conjunctivae: conjunctivae normal Pupils: Equal, round and reactive pupils present EOM: EOMs intact bilaterally and No Nystagmus present Neck Neck: Yes normal visual inspection, Yes full ROM and Yes no lymphadenopathy Chest Chest palpation & inspection: normal inspection of the chest Resp Effort & Inspection: normal respiratory effort Auscultation: clear to auscultation bilaterally, no crackles, no rales, no rhonchi, no wheezes and breath sounds present Cardio Rate: regular rate Rhythm: regular rhythm Peripheral pulses: radial pulses present and dorsalis pedis present GI Inspection: Yes normal to inspection and No Abdominal wall edema Palpation (GI): Soft to palpation, not firm and nontender Auscultation: normal bowel sounds Rectal Exam - Female: deferred General: Yes no CVA tenderness Back/Spine/Pelvis Back: no CVA tenderness Skin General skin exam: no rashes or lesions noted Neuro General: patient oriented x3 Cranial nerves: Yes Equal, round and reactive pupils present, Yes Midline tongue present, Yes Ability to bilaterally elevate shoulders present and No Nystagmus present Gait exam (Neuro): Normal gait present Extrem General: Yes normal to inspection, Yes full ROM, No no pedal edema and No edema Psych Speech and movement: Normal speech and movement present Affect: normal affect Insight: Good insight present (Psych) Judgement: Good judgement present (Psych) Assessment and Plan Assessment & Plan (1) Anxiety with depression: Code(s): F41.8 - Other specified anxiety disorders Plan: Patient had previously been seen by [facility]. She does not want to take any medications but is interested in trying a counselor again, referral placed today. (2) Asthma: Code(s): J45.909 - Unspecified asthma, uncomplicated Plan: Patient is on albuterol inhaler as needed at this time and asthma symptoms are not well managed. Allergies and anxiety may be contributing to her asthma symptoms. Added inhaled corticosteroid to her regimen and we will follow up in 3 months. Advised patient to reach out if symptoms do not improve. (3) Annual physical exam: Code(s): Z00.00 - Encounter for general adult medical examination without abnormal findings Plan: Patient is up-to-date on all recommended routine screenings and vaccinations for her age. Updated blood work ordered today. Plan This note was constructed using voice recognition software. While every effort has been made to ensure accuracy and medical scheduler, still areas may have been included sometimes these areas may affect the content or meeting of the given symptoms. Total time spent caring for the patient today was 30 minutes. This includes time spent before the visit reviewing the chart, time spent during the visit, and time spent after the visit and documentation. Orders: Orders Basic Metabolic Panel Today J45.909 - Unspecified asthma, uncomplicated Complete Blood Count no Diff Today J45.909 - Unspecified asthma, uncomplicated Thyroid Stimulating Hormone Today J45.909 - Unspecified asthma, uncomplicated Free T4 (Free Thyroxine) Today Z00.00 - Encounter for general adult medical examination without abnormal findings Referrals Counseling Referral F41.8 - Other specified anxiety disorders Medications: New beclomethasone dipropionate 40 mcg/actuation (Qvar RediHaler) 1 inh inhalation BID 10.6 grams 2RF Coding Level of Care Code Est Pt Prev Care 18-39y(39492) Diagnoses Anxiety with depression F41.8 Asthma J45.909 Annual physical exam Z00.00 Additional Codes MABLE-7 Assessment Billing - MABLE-7 Assessment Tool: MABLE-7 Assessment 42241 ([id number])
== END 2024-07-04 09:15 | disposition home or self-care (01) ==
PROVIDERS: PCP Nurse Practitioner Family
DX: Z00.00 Encounter for general adult medical examination without abnormal findings (principal); F41.8 Other specified anxiety disorders; J45.909 Unspecified asthma, uncomplicated
CPT/HCPCS: 99395

== ENCOUNTER 2024-07-04 09:26 | Outpatient (REF) | payer OTHER, SELFPAY ==
[2024-07-04 09:56] LABS: Hemoglobin 12.8 g/dl (12.0-16.0); Mean Corpuscular HGB Conc 33.7 g/dl (31.0-35.0); Mean Corpuscular Hemoglobin 30.8 pg (27.0-33.0); Mean Corpuscular Volume 91.6 fL (80.0-98.0); Mean Platelet Volume 9.1 fL (9.4-12.3); Platelet Count 286 X10*3/uL (160-400); Red Blood Count 4.15 X10*6/uL (4.20-5.50); Red Cell Distribution Width 12.1 % (11.0-16.0); White Blood Count 8.5 X10*3/uL (4.8-10.8)
[2024-07-04 10:48] LABS: Anion Gap 9 (12-20); Blood Urea Nitrogen 10 mg/dL (9-16); Calcium 9.1 mg/dL (8.4-10.2); Carbon Dioxide 27 mmol/L (22-29); Chloride 109 mmol/L (96-108); Estimated Glomerular Filt Rate > 60; Glucose Random 97 mg/dL (60-115); Potassium 4.4 mmol/L (3.3-5.1); Sodium 141 mmol/L (135-145)
[2024-07-04 10:53] LABS: Free T4 (Free Thyroxine) 0.89 ng/dL (0.71-1.85); Thyroid Stimulating Hormone 1.17 uIU/mL (0.32-4.0)
== END 2024-07-04 09:27 | disposition home or self-care (01) ==
LOC: HO.LAB 09:26
DX: Z00.00 Encounter for general adult medical examination without abnormal findings (principal); J45.909 Unspecified asthma, uncomplicated
CPT/HCPCS: 36415; 80048; 84439; 84443; 85027

== ENCOUNTER 2024-07-20 10:08 | Outpatient (AMB) | payer OTHER, SELFPAY ==
--- NOTE | 2024-07-20 10:09 | A.OFFVIS_ITS ---
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 Required: No Information Interpreted: clinical only Orthotics Prosthetics Assistant: Orthotics Prosthetics Assistant Present Allergies dog dander Allergy (Mild, Verified 07/20/24 10:13) Sneezing pollen Allergy (Unknown, Uncoded 07/20/24 10:13) Unknown Soap Allergy (Unknown, Uncoded 07/20/24 10:13) Unknown Medication List - Last Reconciled 07/20/24 by Marsha Hatch CNM albuterol sulfate 90 mcg/actuation 1 inh inhalation QID PRN budesonide 90 mcg/actuation (Pulmicort Flexhaler) 1 inh inhalation BID desog-e.estradiol/e.estradiol 0.15-0.02 mgx21 /0.01 mg x 5 1 tab PO DAILY ibuprofen 600 mg PO Q6H PRN loratadine 10 mg PO DAILY triamcinolone acetonide 0.025% 1 appl topical BID Is last menstrual period known: Yes Last menstrual period: 07/06/24 HPI 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 She is on control pills and she feels she is doing really well with them she is noticing that as before when she was on pills her periods are getting manifest/order organizer print orders. She is a little nervous that if they go away completely how she know if she is not and I did discuss this with her. She has 0 concerns about STIs at this time she has somewhat recently and also does not feel she has any BV symptoms or anything else that is worrisome at this time she is turning 19 in 1 month and she loses her health insurance then she may get help insurance in the future but she has no guarantees of that at all at this time and she wants to be sure that she gets her Pap smear done while she still has insurance enough pay for the visit. Therefore since less than 4-6 weeks away I am doing her Pap smear at this visit I also already sent refills on her control pills for her she does not feel she needs any blood tests for STIs she feels she is in a good steady trusting relationship at this time. And full screens were done for both before they became active together. 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 She also tells me she recently saw her primary care provider at [facility] and was given a new for her asthma she says she has a mild cold right now but does not feel very sick. [facility] Medical History Hypotension Asthma Surgical History No pertinent past surgical history Family History Father HTN (hypertension) Diabetes Mother Rheumatoid arthritis HTN (hypertension) Lupus Maternal Aunt Breast cancer Family/Other Mental health disorder Substance use disorder Social History Housing: Apartment Alcohol intake: never Patient Tobacco Use Status: Never used Tobacco e-Cigarette/Vaping Use: Never Used Second Hand Smoke Exposure: No Substance Use Type: Marijuana service: No Current occupational status: employed Current occupational exposures/hazards: No Cognitive needs: No Hearing needs: No Vision needs: No Female Reproductive History Menstrual Age of Menarche: 10 Duration of menses: 3-5 days Date of last menstrual period: 07/06/24 control method: pills Total pregnancies: 0 History of abnormal pap smear: No (no previous pap) Physical Exam Vital Signs: Last Vital Signs BP 100/60 07/20/24 10:12 BMI result Body Mass Index 21.6 Const General: healthy appearing, comfortable, no acute distress, well developed and alert Nutritional Appearance: average body habitus Orientation/consciousness: patient oriented x3 Limitations: no limitations HEENT Head: Yes normocephalic Neck Neck: Yes normal visual inspection Chest Chest palpation & inspection: normal inspection of the chest Breast/axilla inspection: normal inspection of the breasts and normal inspection of the axillae Breast/axilla palpation: normal palpation of the breasts and normal palpation of the axillae Resp Effort & Inspection: normal respiratory effort GI Inspection: Yes normal to inspection, No Abdominal wall edema and No distended Palpation (GI): Soft to palpation and nontender Other: Patient has normal external exam no lesions vagina is pink and moist discharge is consistent with normal healthy vaginal discharge and use of OCPs nulliparous cervix is pink smooth normal with ectropion, very posterior. Uterus is small midposition mobile nontender adnexa nontender not enlarged. very good tone w Kegel. General: Yes bladder normal to palpation External Female Exam: normal external appearance and normal appearance of the urethra Speculum Exam - Vagina: normal appearance of the vagina, normal palpation and normal vaginal discharge Speculum Exam - Cervix: normal appearance of the cervix, normal palpation and nontender Bimanual exam- vagina & uterus: normal bimanual exam, normal palpation, uterine size normal, bladder normal to palpation, consistency normal, normal palpation, uterine mobility normal, uterine shape normal, No Cervical tenderness present, non-tender and no cervical motion tenderness Bimanual Exam- Adnexa, other: normal adnexae, no masses, normal and No adnexal tenderness Neuro General: patient oriented x3 Assessment & Plan Assessment & Plan (1) Surveillance for control, oral contraceptives: Code(s): Z30.41 - Encounter for surveillance of contraceptive pills Category: Medical (2) Well woman exam with routine gynecological exam: Code(s): Z01.419 - Encounter for gynecological examination (general) (routine) without abnormal findings Category: Medical (3) Cervical cancer screening: Comment: States she has had the Gardasil vaccine series and educated that Paps will start when she is 19; 1st Pap done today 07/20/2024 as she loses her health insurance when she turns 19 years old.... 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 She is on control pills and she feels she is doing really well with them she is noticing that as before when she was on pills her periods are getting manifest/order organizer print orders. She is a little nervous that if they go away completely how she know if she is not and I did discuss this with her. She has 0 concerns about STIs at this time she has somewhat recently and also does not feel she has any BV symptoms or anything else that is worrisome at this time she is turning 19 in 1 month and she loses her health insurance then she may get help insurance in the future but she has no guarantees of that at all at this time and she wants to be sure that she gets her Pap smear done while she still has insurance enough pay for the visit. Therefore since less than 4-6 weeks away I am doing her Pap smear at this visit I also already sent refills on her control pills for her she does not feel she needs any blood tests for STIs she feels she is in a good steady trusting relationship at this time. And full screens were done for both before they became active together. 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 Coding Level of Care Code Est Pt Prev Care 18-39y(87074) Diagnoses Surveillance for control, oral contraceptives Z30.41 Well woman exam with routine gynecological exam Z01.419 Cervical cancer screening Z12.4
[2024-07-20 10:12] VITALS: BP 100/60; BMI 21.6
== END 2024-07-20 12:50 | disposition home or self-care (01) ==
LOC: HO.HWSM 10:08
PROVIDERS: Visit Provider Advanced Practice Midwife
DX: Z30.41 Encounter for surveillance of contraceptive pills (principal); Z01.419 Encounter for gynecological examination (general) (routine) without abnormal findings; Z12.4 Encounter for screening for malignant neoplasm of cervix
CPT/HCPCS: 99395

== ENCOUNTER 2024-07-20 10:08 | Outpatient (REF) | payer OTHER, SELFPAY | END 2024-07-20 10:09 | disposition home or self-care (01) | LOC: HO.LNP 10:08 | PROVIDERS: Visit Provider Advanced Practice Midwife | DX: Z01.419 Encounter for gynecological examination (general) (routine) without abnormal findings (principal) | CPT/HCPCS: 87625; 88175; 99395 ==

== ENCOUNTER 2024-09-26 07:39 | Emergency (ER) | payer OTHER, SELFPAY ==
[2024-09-26 07:58] VITALS: BP 103/71; PULSE 59; RESP 18; TEMP 36.4; O2SAT 100; BMI 21.6
--- NOTE | 2024-09-26 08:13 | ED_ITS ---
HPI - Nausea/Vomiting/Diarrhea General Chief complaint: Nausea/Vomiting/Diarrhea Stated complaint: Vomiting, nausea Time Seen by Provider: 09/26/24 08:13 Source: patient and old records reviewed Mode of arrival: ambulatory Limitations: no limitations History of Present Illness ED Provider: DALTON BAIRD Narrative: 19 yo female with asthma, anxiety and depression here with c/o 2 months of AM n/v. No abdominal pain, diarrhea 1 week ago. She eats late at night around 8/9 then goes to bed at 10pm. She has no other symptoms does not take NSAIDs was seen at yesterday negative preg test. The patient has never been on antacids. MD elicited complaint: nausea and vomiting Onset (ago): month(s) (2) Description of vomiting: food contents and watery Associated nausea: Yes Associated abdominal pain: No Location of pain: none Exacerbating factors: none Relieving factors: none Associated symptoms: nausea/vomiting and anxiety Related Data Previous Rx's ?Medication ?Instructions ?Recorded loratadine 10 mg tablet 10 mg PO DAILY #90 tabs 01/12/22 ibuprofen 600 mg tablet 600 mg PO Q6H PRN fever or pain 04/20/23 #30 tabs albuterol sulfate 90 mcg/actuation 1 inh inhalation QID PRN shortness 09/02/23 aerosol inhaler of breath or wheezing #6.7 grams triamcinolone acetonide 0.025 % 1 appl topical BID #15 grams 05/10/24 topical cream desogestrel-e.estradiol 0.15 1 tab PO DAILY #84 tabs 06/16/24 mg-0.02 mg(21)/e.estrad 0.01 mg(5) tablet budesonide 90 mcg/actuation breath 1 inh inhalation BID #1 ea 07/07/24 activated powder inhaler (Pulmicort Flexhaler) omeprazole 20 mg capsule,delayed 20 mg PO DAILY #14 caps 09/26/24 release promethazine 25 mg tablet 25 mg PO Q6H PRN nausea and 09/26/24 vomiting #20 tabs Allergies Allergy/AdvReac Type Severity Reaction Status Date / Time dog dander Allergy Mild Sneezing Verified 09/26/24 08:00 pollen Allergy Unknown Unknown Uncoded 07/20/24 10:13 Soap Allergy Unknown Unknown Uncoded 07/20/24 10:13 Review of Systems 2 Review of Systems: Constitutional : No Weight loss, No Fever, No Chills ENT/Mouth : No sore throat, No Rhinorrhea Eyes: No Swelling, No Redness Cardiovascular : No Chest Pain, No SOB, NoEdema Respiratory : No Cough, No Sputum, No Wheezing Gastrointestinal : Positive Nausea, Positive Vomiting, no Diarrhea, no abdominal Pain, No Hematochezia, No Melena Genitourinary : No Dysuria, No Urinary Frequency, No Hematuria, No Urgency Musculoskeletal : No joint pain, No Myalgias, No Joint Swelling Skin : No Skin Lesions, No rash Neuro : No Weakness, No Numbness, No Dizziness, No Headache All other systems reviewed and are negative. Gastrointestinal: Gastrointestinal: Reports nausea PMFSH Past Medical History Attestation statement: The following information was validated with the patient. Source: old records reviewed Medical History Hypotension Asthma Surgical History No pertinent past surgical history Family History Family History Father HTN (hypertension) Diabetes Mother Rheumatoid arthritis HTN (hypertension) Lupus Maternal Aunt Breast cancer Family/Other Mental health disorder Substance use disorder Social History Social History Housing: Apartment Alcohol intake: never Patient Tobacco Use Status: Never used Tobacco e-Cigarette/Vaping Use: Never Used Second Hand Smoke Exposure: No Substance Use Type: Marijuana Advance Directives: No Advance Directives Information Provided: Yes Do you have a plan to hurt others: No Plan service: No Current occupational status: employed Current occupational exposures/hazards: No Cognitive needs: No Hearing needs: No Vision needs: No Physical Exam 2 Vital Signs: Vital Signs: Last Vital Signs Temp 97.5 F 09/26/24 07:58 Pulse 59 09/26/24 07:58 Resp 18 09/26/24 07:58 BP 103/71 09/26/24 07:58 Pulse Ox 100 09/26/24 07:58 O2 Del Method Room Air 09/26/24 07:58 BMI result Body Mass Index 21.6 Appearance: Alert. Oriented X3. No acute distress. Eyes: Pupils equal, round and reactive to light. ENT: Pharynx normal. Neck: Normal inspection. Neck supple. CVS: Normal heart rate and rhythm. Pulses normal. Respiratory: No respiratory distress. Breath sounds normal. Abdomen: Soft and non-tender. Skin: Skin warm and dry. Normal skin color. Normal skin turgor. Extremities: No lower extremity edema. Neuro: Oriented X 3. No motor deficit. No sensory deficit. Medications Administered Discontinued Medications Generic Name Dose Route Start Last Admin Trade Name Reeseq PRN Reason Stop Dose Admin Omeprazole 20 mg 09/26/24 08:22 09/26/24 08:28 Omeprazole 20 Mg Capsule. PO 09/26/24 08:23 20 mg ONCE ONE Administration Promethazine HCl 25 mg 09/26/24 08:22 09/26/24 08:28 Promethazine Hcl 25 Mg Tablet PO 09/26/24 08:23 25 mg ONCE ONE Administration Medical Decision Making Medical Decision Making [facility] Narrative: 19 yo female with asthma, anxiety and depression here with c/o AM n/v for about 2 months at this time no ttp on exam not toxic well hydrated given her symptoms and AM wake up with neg preg test yesterday I suspect GERD, gastritis, esophagitis will obtian labs and start on PPI x 2 weeks Differential Diagnosis Differential Diagnoses: The differential diagnosis associated with the presentation includes GERD, gastritis, PUD Admission/Observation Consideration of admission/observation: Escalation of care including admission/observation considered work up reassuring able to tolerate PO start 2 week trial and refer to GI/PCP Lab Data [facility] Lab Attestation statement: I reviewed the patient's lab results. 09/26/24 08:10 09/26/24 08:10 Labs: Lab Results 09/26/24 Range/Units 08:10 WBC 8.4 (4.8-10.8) X10*3/uL RBC 4.02 L (4.20-5.50) X10*6/uL Hgb 12.2 (12.0-16.0) g/dl Hct 36.6 L (37.0-47.0) % MCV 91.0 (80.0-98.0) fL MCH 30.3 (27.0-33.0) pg MCHC 33.3 (31.0-35.0) g/dl RDW 12.6 (11.0-16.0) % Plt Count 250 (160-400) X10*3/uL MPV 9.0 L (9.4-12.3) fL Immature Gran % (Auto) 0.4 (0.0-0.4) % Neut % (Auto) 72.2 (45-73) % Lymph % (Auto) 20.2 (20-40) % Caroline % (Auto) 5.5 (2-11) % Eos % (Auto) 1.3 (0-4) % Baso % (Auto) 0.4 (0-2) % Lymph # (Auto) 1.7 (1.2-4.9) X10*3/uL Caroline # (Auto) 0.5 (0.1-1.2) X10*3/uL Eos # (Auto) 0.1 (0.0-0.4) X10*3/uL Baso # (Auto) 0.0 (0.0-0.2) X10*3/uL Abs Immat Gran (auto) 0.03 (0.00-0.03) X10*3/uL Absolute Neuts (auto) 6.1 (2.0-8.3) x10*3/uL Absolute Nucleated RBC 0.000 (0.0-0.012) X10*3/uL Nucleated RBC % (auto) 0.0 (0.0-0.2) /100WBC Sodium 142 (135-145) mmol/L Potassium 4.4 (3.3-5.1) mmol/L Chloride 111 H (96-108) mmol/L Carbon Dioxide 26 (22-29) mmol/L Anion Gap 9 L (12-20) BUN 12 (9-16) mg/dL Creatinine 0.80 (0.5-1.4) mg/dL Estim Creat Clear Calc 92.0 Estimated GFR > 60 Random Glucose 96 (60-115) mg/dL Calcium 8.9 (8.4-10.2) mg/dL Total Bilirubin 0.7 (0.0-1.0) mg/dL AST 24 (5-31) U/L ALT 12 (0-31) U/L Alkaline Phosphatase 37 L (39-117) U/L Total Protein 6.6 (6.5-8.0) g/dL Albumin 4.1 (3.5-5.0) g/dL Lipase 35 (8-78) U/L Independent Historian Clinical information obtained from an independent historian. History obtained from or confirmed by: Parent External Record Review External record reviewed: Outpatient record Prescription Management I considered prescription management with: Other Discharge Plan Discharge Clinical Impression: GERD (gastroesophageal reflux disease) Qualifiers: Esophagitis presence: esophagitis presence not specified Qualified Code(s): K 21.9 - Gastro-esophageal reflux disease without esophagitis Nausea & vomiting Qualifiers: Vomiting type: unspecified Qualified Code(s): R11.2 - Nausea with vomiting, unspecified Patient Disposition: Home, Self-Care Instructions: Diet for Stomach Ulcers and Gastritis (ED), Gastroesophageal Reflux Disease (ED), Acute Nausea and Vomiting (ED) Additional Instructions: avoid NSAIDs like motrin and ibuprofen but tylenol is okay start new medication may take a few days to work return for pain, fevers, unable to eat or drink wait 2 hours after eating to lay down please follow up with primary care doctor and GI next dose of antacid is tomorrow AM Prescriptions: New promethazine 25 mg tablet 25 mg PO Q6H PRN (Reason: nausea and vomiting) Qty: 20 0RF omeprazole 20 mg capsule,delayed release(DR/EC) 20 mg PO DAILY Qty: 14 0RF No Action loratadine 10 mg tablet 10 mg PO DAILY Qty: 90 2RF Rx Instructions: Take 1 tablet by mouth daily albuterol sulfate 90 mcg/actuation HFA aerosol inhaler 1 inh inhalation QID PRN (Reason: shortness of breath or wheezing) Qty: 6.7 3RF Pulmicort Flexhaler 90 mcg/actuation aerosol powdr breath activated 1 inh inhalation BID Qty: 1 2RF ibuprofen 600 mg tablet 600 mg PO Q6H PRN (Reason: fever or pain) Qty: 30 0RF triamcinolone acetonide 0.025 % cream 1 appl topical BID Qty: 15 0RF desog-e.estradiol/e.estradiol 0.15-0.02 mgx21 /0.01 mg x 5 tablet 1 tab PO DAILY Qty: 84 3RF Ref[place]: [facility] [place] Group] (call to schedule appointment) Stand Alone Forms: Work/School Release Print Language: Congolese
[2024-09-26 08:14] LABS: MANUAL DIFF FLAG NO
[2024-09-26 08:17] LABS: Basophils Percent Auto 0.4 % (0-2); Eosinophils Absolute Auto 0.1 X10*3/uL (0.0-0.4); Eosinophils Percent Auto 1.3 % (0-4); Hematocrit 36.6 % (37.0-47.0); Hemoglobin 12.2 g/dl (12.0-16.0); Imm Gran Abs Auto 0.03 X10*3/uL (0.00-0.03); Imm Gran Pct Auto 0.4 % (0.0-0.4); Lymphocytes Absolute Auto 1.7 X10*3/uL (1.2-4.9); Lymphocytes Percent Auto 20.2 % (20-40); Mean Corpuscular HGB Conc 33.3 g/dl (31.0-35.0); Mean Corpuscular Hemoglobin 30.3 pg (27.0-33.0); Monocytes Absolute Auto 0.5 X10*3/uL (0.1-1.2); Monocytes Percent Auto 5.5 % (2-11); Neutrophils Absolute Auto 6.1 x10*3/uL (2.0-8.3); Neutrophils Percent Auto 72.2 % (45-73); Platelet Count 250 X10*3/uL (160-400); Red Blood Count 4.02 X10*6/uL (4.20-5.50); Red Cell Distribution Width 12.6 % (11.0-16.0); White Blood Count 8.4 X10*3/uL (4.8-10.8)
[2024-09-26] MEDS: Omeprazole 20 MG CAPSULE.DR PO (08:28)
[2024-09-26] MEDS: Promethazine HCL 25 MG TABLET PO (08:28)
[2024-09-26 08:35] LABS: Alanine Aminotransferase 12 U/L (0-31); Albumin Level 4.1 g/dL (3.5-5.0); Alkaline Phosphatase 37 U/L (39-117); Anion Gap 9 (12-20); Aspartate Amino Transferase 24 U/L (5-31); Bilirubin Total 0.7 mg/dL (0.0-1.0); Blood Urea Nitrogen 12 mg/dL (9-16); Calcium 8.9 mg/dL (8.4-10.2); Carbon Dioxide 26 mmol/L (22-29); Chloride 111 mmol/L (96-108); Estimated Glomerular Filt Rate > 60; Glucose Random 96 mg/dL (60-115); Potassium 4.4 mmol/L (3.3-5.1); Sodium 142 mmol/L (135-145); Total Protein 6.6 g/dL (6.5-8.0)
[2024-09-26 08:39] LABS: Lipase 35 U/L (8-78)
[2024-09-26 08:50] LABS: HCG Quantitative < 2 mIU/mL
[2024-09-26 09:43] LABS: Appearance Urine Cloudy; Color Urine Yellow; Glucose Urine UA Negative (Negative); Leukocyte Esterase Urine Small (1+) (Negative); Nitrite Urine Negative (Negative); Specific Gravity - Urine 1.025 (1.005-1.025); UMIC TRIGGER UACC YES; Urine Blood Negative (Negative); Urine Ketones Trace mg/dL (Negative); Urine Protein Trace mg/dL (Neg-Trace)
[2024-09-26 09:44] LABS: UPreg QC Valid YES; Urine Pregnancy NEGATIVE (NEGATIVE)
[2024-09-26 09:52] LABS: Bacteria Urine 1+ (None Seen); Hyaline Casts Urine 0-2 /LPF (0-2); RBC Urine 0-2 /HPF (0-2); UACC Culture Trigger YES
[2024-09-26 10:20] VITALS: BP 112/73; PULSE 66; RESP 15; TEMP 36.8; O2SAT 99
== END 2024-09-26 10:22 | disposition home or self-care (01) ==
PROVIDERS: Emergency Provider Emergency Medicine
DX: K21.9 Gastro-esophageal reflux disease without esophagitis (principal); R11.2 Nausea with vomiting, unspecified
CPT/HCPCS: 36415; 80053; 81001; 81025; 83690; 84702; 85025; 87086; 99283; 99284

== ENCOUNTER 2024-10-03 09:31 | Outpatient (AMB) | payer OTHER, SELFPAY ==
[2024-10-03 09:32] VITALS: BP 120/72; PULSE 71; O2SAT 98; BMI 21.4
--- NOTE | 2024-10-03 09:32 | A.OFFPC_ITS ---
Vital Signs 10/03/24 09:32 Height 5 ft 3 in Weight 121 lb BMI 21.4 BP 120/72 Blood Pressure Location Lt brachial Position Sitting Pulse 71 Pulse Source Pulse Oximeter Pulse Oximetry (%) 98 Oxygen Delivery Method Room Air Intake Visit Reasons: 3 Month F/U Allergies dog dander Allergy (Mild, Verified 10/03/24 09:32) Sneezing pollen Allergy (Unknown, Uncoded 10/03/24 09:32) Unknown Soap Allergy (Unknown, Uncoded 10/03/24 09:32) Unknown Medication List - Last Reconciled 10/03/24 by Keila Dorsey PA-C albuterol sulfate 90 mcg/actuation 1 inh inhalation QID PRN budesonide 90 mcg/actuation (Pulmicort Flexhaler) 1 inh inhalation BID desog-e.estradiol/e.estradiol 0.15-0.02 mgx21 /0.01 mg x 5 1 tab PO DAILY ibuprofen 600 mg PO Q6H PRN loratadine 10 mg PO DAILY omeprazole 20 mg PO DAILY promethazine 25 mg PO Q6H PRN triamcinolone acetonide 0.025% 1 appl topical BID Tobacco use date assessed: 05/10/24 Dental Screening Dental Screen Date: 01/12/24 HPI 3 Month F/U HPI Details 19-year-old female with past medical his tory of anxiety, asthma last see June 2024 coming in for follow up.? In review of the notes patient was seen by Gynecology 07/2024 for annual exam completed Pap smear. Patient states she started having nausea in the morning and was started on omeprazole and promethazine as needed by the ER. She states since taking the omeprazole daily her nausea has been improving. She also mentioned that she has been struggling more with her anxiety lately and has been having worsening nausea related to her anxiety attacks. Her breathing has much improved since starting the inhaled corticosteroid and uses her albuterol inhaler only as needed. Denies any nighttime awakenings and uses albuterol inhaler sometimes l ess than once a week. [facility] Medical History Hypotension Asthma Surgical History No pertinent past surgical history Family History Father HTN (hypertension) Diabetes Mother Rheumatoid arthritis HTN (hypertension) Lupus Maternal Aunt Breast cancer Family/Other Mental health disorder Substance use disorder Social History Housing: Apartment Alcohol intake: never Patient Tobacco Use Status: Never used Tobacco e-Cigarette/Vaping Use: Never Used Second Hand Smoke Exposure: No Substance Use Type: Marijuana service: No Current occupational status: employed Current occupational exposures/hazards: No Cognitive needs: No Hearing needs: No Vision needs: No Female Reproductive History Menstrual Age of Menarche: 10 Questionnaire Thrive Questionnaire Date Thrive assessed: 01/12/24 AUDIT C Alcohol Use Questionnaire (AUDIT-C) 1. How often do you have a drink containing alcohol?: Never Total Score: 0 MABLE-7 AMB Questionnaire MABLE-7 Date MABLE - 7 assessed: 01/12/24 Source: Developed by Drs. Star Ballard, Tricia Perkins, Mirza Merino and colleagues, with an educational mone from [employer]. Review of Systems Const Denies body aches, Denies chills, Denies fever(s), Denies headache(s) and Denies poor appetite Eyes Reports no additional complaints ENT Denies dysphagia, Denies dizziness, Denies headache(s) and Denies odynophagia Card Denies chest pain and Denies dyspnea Resp Denies cough and Denies dyspnea GI Denies abdominal pain, Denies constipation, Denies dysphagia, Reports dyspepsia, Denies diarrhea, Reports nausea, Denies odynophagia and Denies vomiting Reports no additional complaints Musc Reports no additional complaints and Denies abnormal gait Skin/Breast Reports system reviewed and no additional complaints, except as documented Neuro Denies abnormal gait, Denies dizziness and Denies headache(s) Psych Reports anxiety Physical exam (Primary Care) Vital Signs: Last Vital Signs Pulse 71 10/03/24 09:32 BP 120/72 10/03/24 09:32 Pulse Ox 98 10/03/24 09:32 Oxygen Delivery Method Room Air 10/03/24 09:32 BMI result Body Mass Index 21.4 Tobacco/Smoking Status: Tobacco use Status Tobacco use date assessed 05/10/24 10/03/24 09:35 Patient Tobacco Use Status Never used Tobacco 10/03/24 09:35 e-Cigarette/Vaping Use Never Used 10/03/24 09:35 Thrive Assessment: Date of Thrive Assessment Date Thrive assessed 01/12/24 10/03/24 09:35 Const General: cooperative, healthy appearing, comfortable and no acute distress Orientation/consciousness: patient oriented x3 HENMT Head: Yes normocephalic Ears: hearing grossly normal bilaterally General nose exam: Normal external nose present Eyes General: appearance normal, both eyes and all related structures Conjunctivae: conjunctivae normal Neck Neck: Yes full ROM and Yes no lymphadenopathy Resp Effort & Inspection: normal respiratory effort Auscultation: clear to auscultation bilaterally, no crackles, no rales, no rhonchi and no wheezes Cardio Rate: regular rate Rhythm: regular rhythm Skin General skin exam: no rashes or lesions noted Neuro General: patient oriented x3 Gait exam (Neuro): Normal gait present Extrem General: Yes normal to inspection, Yes full ROM and No edema Psych Affect: normal affect Attitude: cooperative Insight: Good insight present (Psych) Judgement: Good judgement present (Psych) Coding Level of Care Code Est Pt Level 3 (39079) Diagnoses Asthma J45.909 Anxiety with depression F41.8 GERD (gastroesophageal reflux disease) K21.9 Esophagitis presence: esophagitis presence not specified Assessment & Plan Assessment & Plan (1) Asthma: Code(s): J45.909 - Unspecified asthma, uncomplicated Category: Medical Plan: Asthma currently controlled on present medications. Continue on Pulmicort b.i.d. and albuterol as needed. Avoid triggers such as allergies. (2) Anxiety with depression: Code(s): F41.8 - Other specified anxiety disorders Category: Medical Plan: Patient states her anxiety has become more less unmanageable. She has not scheduled an appointment with a counselor at this time because of work restrictions. She is looking to try a medication but is declining all antidepressants at this time due to previous poor reactions to it. We will trial BuSpar 5 mg b.i.d. discussed side effects of this medication and when to present for re-evaluation. We will follow up in 2 months via telehealth to evaluate efficacy of this medication. Advised patient to reach out if she has any concerns or if anxiety is worsening or not improving. (3) GERD (gastroesophageal reflux disease): Code(s): K21.9 - Gastro-esophageal reflux disease without esophagitis Category: Medical Qualifiers: Esophagitis presence: esophagitis presence not specified Qualified Code(s): K21.9 - Gastro-esophageal reflux disease without esophagitis Plan: Patient having nausea in the mornings. She states the symptoms have much improved since starting the omeprazole daily. Advised to continue on omeprazole and follow up in 2 months. Avoid trigger foods such as citrus, tomato products, soda, caffeine, spicy foods and other foods that may be irritating to your stomach. Avoid laying flat 3-4 hours after eating and elevate the head of the bed 30 degrees to prevent acid from moving into the esophagus. Plan This note was constructed using voice recognition software. While every effort has been made to ensure accuracy and spanish literature professor, still areas may have been included sometimes these areas may affect the content or meeting of the given symptoms. Total time spent caring for the patient today was 20 minutes. This includes time spent before the visit reviewing the chart, time spent during the visit, and time spent after the visit and documentation. Medications: New buspirone 5 mg PO BID 60 tabs 1RF Refilled omeprazole 20 mg PO DAILY 90 caps 0RF
== END 2024-10-03 10:02 | disposition home or self-care (01) ==
DX: J45.909 Unspecified asthma, uncomplicated (principal); F41.8 Other specified anxiety disorders; K21.9 Gastro-esophageal reflux disease without esophagitis

== ENCOUNTER → 2024-10-03 09:31 | Outpatient (BNVA) | payer OTHER, SELFPAY | DX: J45.909 Unspecified asthma, uncomplicated (principal); F41.8 Other specified anxiety disorders; K21.9 Gastro-esophageal reflux disease without esophagitis | CPT/HCPCS: 99212 ==

== ENCOUNTER 2024-10-19 13:18 | Outpatient (AMB) | payer OTHER, SELFPAY ==
[2024-10-19 13:19] VITALS: BP 100/70; PULSE 86; BMI 21.5
--- NOTE | 2024-10-19 13:19 | A.OFFPC_ITS ---
Vital Signs 10/19/24 13:19 Height 5 ft 3 in Weight 121 lb 6 oz BMI 21.5 BP 100/70 Blood Pressure Location Lt brachial Position Sitting Pulse 86 Pulse Source Pulse Oximeter Oxygen Delivery Method Room Air Intake Visit Reasons: chills/nauseous (covid-) Community Re[employer]ment Act Officer Required: No Accompanied by: Self / Same As Patient Allergies dog dander Allergy (Mild, Verified 10/19/24 13:20) Sneezing pollen Allergy (Unknown, Uncoded 10/19/24 13:20) Unknown Soap Allergy (Unknown, Uncoded 10/19/24 13:20) Unknown Medication List - Last Reconciled 10/19/24 by Keila Dorsey PA-C albuterol sulfate 90 mcg/actuation 1 inh inhalation QID PRN budesonide 90 mcg/actuation (Pulmicort Flexhaler) 1 inh inhalation BID buspirone 5 mg PO BID desog-e.estradiol/e.estradiol 0.15-0.02 mgx21 /0.01 mg x 5 1 tab PO DAILY ibuprofen 600 mg PO Q6H PRN loratadine 10 mg PO DAILY omeprazole 20 mg PO DAILY promethazine 25 mg PO Q6H PRN triamcinolone acetonide 0.025% 1 appl topical BID Tobacco use date assessed: 10/19/24 Dental Screening Dental Screen Date: 10/19/24 HPI chills/nauseous (covid-) HPI Details 19-year-old female with past medical his tory of anxiety and asthma last seen September 2024 coming in for acute problem. Patient states she has been having chills and cold sweats for the last week without fevers. She mentioned she has been waking up throughout the night with sweaty palms and sweaty feet but feels very cold. She also mentioned she has continued anxiety attacks where she will get hot and hyperventilate and have uncontrollable crying. She feels the BuSpar has been helping her anxiety. She will mentioned loss of appetite. She also mentions having bilateral breast pain on occasion and feeling a mass in the right PFSH Medical History Hypotension Asthma Surgical History No pertinent past surgical history Family History Father HTN (hypertension) Diabetes Mother Rheumatoid arthritis HTN (hypertension) Lupus Maternal Aunt Breast cancer Family/Other Mental health disorder Substance use disorder Social History Housing: Apartment Alcohol intake: never Patient Tobacco Use Status: Never used Tobacco e-Cigarette/Vaping Use: Never Used Second Hand Smoke Exposure: No Substance Use Type: Marijuana service: No Current occupational status: employed Current occupational exposures/hazards: No Cognitive needs: No Hearing needs: No Vision needs: No Female Reproductive History Menstrual Age of Menarche: 10 Questionnaire PHQ-9 Over the last 2 weeks, how often have you been bothered by any of the following problems? 1. Little interest or pleasure in doing things: several days 2. Feeling down, depressed, or hopeless: more than half the days 3. Trouble falling or staying asleep, or sleeping too much: nearly every day 4. Feeling tired or having little energy: more than half the days 5. Poor appetite or overeating: nearly every day 6. Feeling bad about yourself - or that you are a failure or have let yourself or your family down: several days 7. Trouble concentrating on things, such as reading the newspaper or watching television: several days 8. Moving or speaking so slowly that other people could have noticed. Or the opposite - being so fidgety or restless that you have been moving around a lot more than usual: not at all 9. Thoughts that you would be better off or of hurting yourself in some way: several days Total score: 14 Depression Screening Interpretation: Positive Depression Screening Follow-up: Existing condition and Community Mental Health Worker F/U Depression Screening Done: Yes Source: Developed by Drs. Star Ballard, Tricia Perkins, iMrza Merino and colleagues, with an educational mone from [employer]. Thrive Questionnaire Date Thrive assessed: 10/19/24 I am a: Patient What is your living situation today?: I have a steady place to live Within the past 12 months, did the food you bought not last and you didn't have the money to get more?: Never true Within the past 12 months, did you worry whether your food would run out before you got money to buy more?: Never true Do you have trouble paying for medicines?: No Do you have trouble getting transportation to medical appointments?: No Do you have trouble paying your heating and electricity bill?: No Do you have trouble taking care of your child, family member or friend?: No Do you have trouble with day-to-day activities such as bathing, preparing meals, shopping, managing finances, etc.?: No Are you currently unemployed and looking for a job?: No Are you interested in more education?: No Please select the resources that you would like help with: None Currently or been in a relationship where the following occur: No concerns reported THRIVE Score: 0 AUDIT C Alcohol Use Questionnaire (AUDIT-C) 1. How often do you have a drink containing alcohol?: Never Total Score: 0 MABLE-7 AMB Questionnaire MABLE-7 Date MABLE - 7 assessed: 10/19/24 Feeling nervous, anxious, or on edge: 0 = Not at all Not being able to stop or control worryin = Not at all Worrying too much about different things: 0 = Not at all Trouble relaxin = Not at all Being so restless that it is hard to sit still: 0 = Not at all Becoming easily annoyed or irritable: 0 = Not at all Feeling afraid as if something awful might happen: 0 = Not at all Total MABLE-7 score (0-4 normal; 5-9 mild; 10-14 moderate; 15-21 severe): 0 Source: Developed by Drs. Star Ballard, Tricia Perkins, Mirza Merino and colleagues, with an educational mone from [employer]. Review of Systems Const Denies body aches, Reports chills, Reports difficulty sleeping, Reports excessive sweating, Denies fever(s), Denies headache(s) and Reports poor appetite Eyes Reports no additional complaints ENT Denies dizziness and Denies headache(s) Card Denies chest pain, Denies syncope, Denies edema, Denies irregular heart rhythm, Reports lightheadedness and Denies dyspnea Resp Denies cough and Denies dyspnea GI Denies abdominal pain, Denies constipation, Denies diarrhea, Denies nausea and Denies vomiting Reports no additional complaints Musc Reports no additional complaints and Denies abnormal gait Skin/Breast Reports system reviewed and no additional complaints, except as documented Neuro Denies abnormal gait, Denies dizziness, Denies syncope and Denies headache(s) Psych Reports anxiety Endo Reports excessive sweating Physical exam (Primary Care) Vital Signs: Oxygen Delivery Method Room Air 10/19/24 13:19 BMI result Body Mass Index 21.5 Tobacco/Smoking Status: Tobacco use Status Tobacco use date assessed 10/19/24 10/19/24 13:24 Patient Tobacco Use Status Never used Tobacco 10/19/24 13:24 e-Cigarette/Vaping Use Never Used 10/19/24 13:24 PHQ-9: PHQ-9 Score PHQ-9: Total score 14 10/19/24 13:24 Depression Screening Interpretation: Positive Depression Screening Follow-up: Existing condition and Community Mental Health Worker F/U Thrive Assessment: Date of Thrive Assessment Date Thrive assessed 10/19/24 10/19/24 13:24 Currently or been in a relationship where the following occur: No concerns reported Const General: cooperative, healthy appearing, comfortable and no acute distress Orientation/consciousness: patient oriented x3 HENMT Head: Yes normocephalic Ears: hearing grossly normal bilaterally General nose exam: Normal external nose present Eyes General: appearance normal, both eyes and all related structures Conjunctivae: conjunctivae normal Neck Neck: Yes full ROM and Yes no lymphadenopathy Chest Other: No tenderness to palpation over bilateral breasts no palpable masses Resp Effort & Inspection: normal respiratory effort Auscultation: clear to auscultation bilaterally, no crackles, no rales, no rhonchi and no wheezes Cardio Rate: regular rate Rhythm: regular rhythm Skin General skin exam: no rashes or lesions noted Neuro General: patient oriented x3 Gait exam (Neuro): Normal gait present Extrem General: Yes normal to inspection, Yes full ROM and No edema Psych Affect: normal affect Attitude: cooperative Insight: Good insight present (Psych) Judgement: Good judgement present (Psych) Coding Level of Care Code Est Pt Level 4 (59231) Diagnoses Excessive sweating R61 Fatigue R53.83 Breast lump N63.0 Breast pain N64.4 Anxiety with depression F41.8 Assessment & Plan Assessment & Plan (1) Excessive sweating: Code(s): R61 - Generalized hyperhidrosis Category: Medical Plan: Patient complaining of excessively sweating in the palms and the soles of the feet. Ordered for blood work. Did discuss that this could be a manifestation of a viral illness and advised to continue monitoring her symptoms at this time. (2) Fatigue: Code(s): R53.83 - Other fatigue Category: Medical Plan: Patient complaining of fatigue due to poor sleep at night. We will trial hydroxyzine as needed for sleep and ordered for blood work to look for underlying cause. (3) Breast lump: Code(s): N63.0 - Unspecified lump in unspecified breast Category: Medical Plan: Patient reporting a breast lump in the 3 o'clock position of the right breast which was not appreciated on exam today. Ordered for ultrasound and diagnostic mammogram for further evaluation. (4) Breast pain: Code(s): N64.4 - Mastodynia Category: Medical Plan: Patient having bilateral breast pain that fluctuates throughout the month. Discussed this is likely due to hormonal changes regarding her menses however due to family history of breast cancer and persistent symptoms we will order for breast ultrasound and mammogram for further evaluation. (5) Anxiety with depression: Code(s): F41.8 - Other specified anxiety disorders Category: Medical Plan: Patient complaining of anxiety with worsening panic attacks. She does mentioned lack of appetite as well as excessive sweating since starting BuSpar. We will discontinue BuSpar at this time and advised to use hydroxyzine as needed for anxiety. Do not drive on this medication. We will evaluate at next visit in November Plan This note was constructed using voice recognition software. While every effort has been made to ensure accuracy and hand roller engraver, still areas may have been included sometimes these areas may affect the content or meeting of the given symptoms. Total time spent caring for the patient today was 20 minutes. This includes time spent before the visit reviewing the chart, time spent during the visit, and time spent after the visit and documentation. Orders: Orders KOKO Reflex Titer and Pattern Today R53.83 - Other fatigue TSH reflex Free T4 Today F41.8 - Other specified anxiety disorders US breast LT complete Today N63.0 - Unspecified lump in unspecified breast, N64.4 - Mastodynia Complete Blood Count Auto Diff Today R53.83 - Other fatigue Free T4 (Free Thyroxine) Today F41.8 - Other specified anxiety disorders MM tomosynthesis diagnostic BI Today N63.0 - Unspecified lump in unspecified breast, N64.4 - Mastodynia US breast RT complete Today N63.0 - Unspecified lump in unspecified breast, N64.4 - Mastodynia Comprehensive Met. Panel Today R53.83 - Other fatigue, Z00.00 - Encounter for general adult medical examination without abnormal findings Medications: New hydroxyzine HCl 10 mg PO TID PRN 20 tabs 0RF anxiety hydroxyzine HCl 10 mg PO TID PRN 30 tabs 0RF anxiety On Hold buspirone Hold Comment: shivering 5 mg PO BID 60 tabs 1RF
== END 2024-10-19 14:35 | disposition home or self-care (01) ==
DX: R61 Generalized hyperhidrosis (principal); R53.83 Other fatigue; N63.0 Unspecified lump in unspecified breast; N64.4 Mastodynia; F41.8 Other specified anxiety disorders

== ENCOUNTER 2024-10-19 13:18 | Outpatient (REF) | payer OTHER, SELFPAY ==
[2024-10-19 15:33] LABS: Free T4 (Free Thyroxine) 1.06 ng/dL (0.71-1.85); TSH reflex Free T4 0.84 uIU/mL (0.32-4.0)
[2024-10-25 10:59] LABS: Anti Nuclear Antibody Pattern Nuclear, Homogeneous; Anti Nuclear Antibody Screen POSITIVE (NEGATIVE)
== END 2024-10-19 13:19 | disposition home or self-care (01) ==
LOC: HO.LAB 13:18
DX: R61 Generalized hyperhidrosis (principal); R53.83 Other fatigue; N63.0 Unspecified lump in unspecified breast; N64.4 Mastodynia; F41.8 Other specified anxiety disorders
CPT/HCPCS: 36415; 84439; 84443; 86038; 86039; 96127; 99212

== ENCOUNTER 2024-12-04 08:19 | Emergency (ER) | payer OTHER, MEDICAID, SELFPAY ==
[2024-12-04 08:25] VITALS: BP 112/72; PULSE 72; RESP 16; TEMP 36.1; O2SAT 97; BMI 21.3
[2024-12-04 08:51] LABS: MANUAL DIFF FLAG NO
[2024-12-04 08:55] LABS: Basophils Percent Auto 0.5 % (0-2); Eosinophils Absolute Auto 0.1 X10*3/uL (0.0-0.4); Eosinophils Percent Auto 1.8 % (0-4); Hematocrit 40.5 % (37.0-47.0); Hemoglobin 13.5 g/dl (12.0-16.0); Imm Gran Abs Auto 0.03 X10*3/uL (0.00-0.03); Imm Gran Pct Auto 0.4 % (0.0-0.4); Lymphocytes Absolute Auto 1.9 X10*3/uL (1.2-4.9); Mean Corpuscular HGB Conc 33.3 g/dl (31.0-35.0); Mean Corpuscular Hemoglobin 31.1 pg (27.0-33.0); Mean Corpuscular Volume 93.3 fL (80.0-98.0); Mean Platelet Volume 8.9 fL (9.4-12.3); Monocytes Absolute Auto 0.6 X10*3/uL (0.1-1.2); Monocytes Percent Auto 7.8 % (2-11); Neutrophils Absolute Auto 4.7 x10*3/uL (2.0-8.3); Neutrophils Percent Auto 63.5 % (45-73); Platelet Count 330 X10*3/uL (160-400); Red Blood Count 4.34 X10*6/uL (4.20-5.50); Red Cell Distribution Width 13.1 % (11.0-16.0); White Blood Count 7.4 X10*3/uL (4.8-10.8)
[2024-12-04 09:26] LABS: Alanine Aminotransferase 22 U/L (0-31); Albumin Level 4.6 g/dL (3.5-5.0); Alkaline Phosphatase 54 U/L (39-117); Anion Gap 10 (12-20); Aspartate Amino Transferase 24 U/L (5-31); Bilirubin Total 0.8 mg/dL (0.0-1.0); Blood Urea Nitrogen 16 mg/dL (9-16); Calcium 9.5 mg/dL (8.4-10.2); Carbon Dioxide 25 mmol/L (22-29); Chloride 110 mmol/L (96-108); Creatinine Clr Calc Pharmacy 95.5; Estimated Glomerular Filt Rate > 60; Glucose Random 95 mg/dL (60-115); Potassium 4.1 mmol/L (3.3-5.1); Sodium 141 mmol/L (135-145); Total Protein 7.5 g/dL (6.5-8.0)
[2024-12-04 09:31] LABS: HCG Quantitative < 2 mIU/mL
[2024-12-04 09:37] LABS: Influenza A PCR NEGATIVE (Negative); Influenza B PCR NEGATIVE (Negative); Resp Syncy Virus RNA Qual PCR NEGATIVE (Negative); SARS COV2 PCR INHOUSE NEGATIVE (Negative)
--- NOTE | 2024-12-04 12:25 | ED_ITS ---
HPI - Nausea/Vomiting/Diarrhea General Chief complaint: Nausea/Vomiting/Diarrhea Stated complaint: vomiting Time Seen by Provider: 12/04/24 12:14 Source: patient, RN notes reviewed and old records reviewed Mode of arrival: ambulatory History of Present Illness ED Provider: Catherine Grissom PA-C HPI Narrative: 19-year-old female with a past medical history GERD, asthma, presenting to the ED complaining of chills, intermittent nausea and emesis x1 since this morning. Reports diarrhea last week. Admits to multiple sick contacts. Denies known fever, travel, suspicious food intake, abdominal pain, brbpr, melena, hematemesis, dysuria/hematuria Related Data Previous Rx's ?Medication ?Instructions ?Recorded loratadine 10 mg tablet 10 mg PO DAILY #90 tabs 01/12/22 ibuprofen 600 mg tablet 600 mg PO Q6H PRN fever or pain 04/20/23 #30 tabs albuterol sulfate 90 mcg/actuation 1 inh inhalation QID PRN shortness 09/02/23 aerosol inhaler of breath or wheezing #6.7 grams triamcinolone acetonide 0.025 % 1 appl topical BID #15 grams 05/10/24 topical cream desogestrel-e.estradiol 0.15 1 tab PO DAILY #84 tabs 06/16/24 mg-0.02 mg(21)/e.estrad 0.01 mg(5) tablet budesonide 90 mcg/actuation breath 1 inh inhalation BID #1 ea 07/07/24 activated powder inhaler (Pulmicort Flexhaler) buspirone 5 mg tablet 5 mg PO BID #60 tabs 10/03/24 omeprazole 20 mg capsule,delayed 20 mg PO DAILY #90 caps 10/03/24 release hydroxyzine HCl 10 mg tablet 10 mg PO TID PRN anxiety #30 tabs 10/19/24 promethazine 25 mg tablet 25 mg PO Q6H PRN nausea and 11/15/24 vomiting #20 tabs ondansetron 4 mg disintegrating 4 mg PO Q8H PRN nausea and 12/04/24 tablet vomiting #10 tabs Allergies Allergy/AdvReac Type Severity Reaction Status Date / Time dog dander Allergy Mild Sneezing Verified 12/04/24 08:27 pollen Allergy Unknown Unknown Uncoded 10/19/24 13:20 Soap Allergy Unknown Unknown Uncoded 10/19/24 13:20 Review of Systems 2 Review of Systems: Yes all other systems are reviewed and are negative Constitutional: Constitutional: Reports as per [facility] Past Medical History Attestation statement: The following information was validated with the patient. Source: old records reviewed Medical History Hypotension Asthma Surgical History No pertinent past surgical history Family History Family History Father HTN (hypertension) Diabetes Mother Rheumatoid arthritis HTN (hypertension) Lupus Maternal Aunt Breast cancer Family/Other Mental health disorder Substance use disorder Social History Social History Housing: Apartment Alcohol intake: never Patient Tobacco Use Status: Never used Tobacco e-Cigarette/Vaping Use: Never Used Second Hand Smoke Exposure: No Substance Use Type: Marijuana service: No Current occupational status: employed Current occupational exposures/hazards: No Cognitive needs: No Hearing needs: No Vision needs: No Physical Exam 2 Vital Signs: Vital Signs: Last Vital Signs Temp 0 F L 12/04/24 15:30 Pulse 0 L 12/04/24 15:30 Resp 0 L 12/04/24 15:30 BP 0/0 L 12/04/24 15:30 Pulse Ox 97 12/04/24 08:25 O2 Del Method Room Air 12/04/24 08:25 BMI result Body Mass Index 21.3 Const: General: cooperative, healthy appearing and no acute distress O rientation/consciousness: patient oriented x3 Limitations: no limitations HEENT: Head: Yes normal to inspection and Yes atraumatic Ears: hearing grossly normal bilaterally General nose exam: Normal external nose present Face and sinus: Yes normal facial exam Mouth: no drooling Throat: Yes posterior oropharynx normal Eyes: General: appearance normal, both eyes and all related structures EOM: EOMs intact bilaterally Neck: Neck: Yes normal visual inspection and Yes no meningeal signs Resp: Effort & Inspection: normal respiratory effort and no respiratory distress Auscultation: clear to auscultation bilaterally Cardio: Rate: regular rate Heart sounds: S1 normal heart sound present and S2 normal heart sound present GI: Inspection: Yes normal to inspection Palpation (GI): Soft to palpation, nontender, no guarding and not rigid Skin: Rashes: no rashes Wounds: no wounds Neuro: General: patient oriented x3, tone normal and no meningeal signs C ranial nerves: Yes CN's II-XII intact bilaterally Gait exam (Neuro): Normal gait present Extrem: General: Yes normal to inspection Course Course Course Narrative: -1228--no leukocytosis. Labs otherwise reassuring. HCG negative -viral testing negative -1502--UA negative. Patient tolerating p.o. without nausea, vomiting, or difficulty. Ready for discharge home at this time Results discussed with patient including worrisome signs and symptoms and strict return precautions, and when to return to the emergency department. They verbalized understanding and feel safe for discharge at this time. Medications Administered Discontinued Medications Generic Name Dose Route Start Last Admin Trade Name Freq PRN Reason Stop Dose Admin Al Hydroxide/Mg Hydroxide 30 ml 12/04/24 12:21 12/04/24 13:37 Magnesium Hydrox/Alum Hydrox 30 Ml Oral.Susp PO 12/04/24 12:22 30 ml ONCE ONE Administration Ondansetron HCl 4 mg 12/04/24 12:21 12/04/24 13:38 Ondansetron Odt 4 Mg Tab.Rapdis TRANSLINGU 12/04/24 12:22 4 mg ONCE ONE Administration Medical Decision Making Medical Decision Making [facility] Narrative: 19-year-old female with a past medical history GERD, asthma, presenting to the ED complaining of chills, intermittent nausea and emesis x1 since this morning. On exam vital signs stable, NAD, nontoxic appearing, abdomen soft and nontender. Concern for viral illness vs gastroenteritis vs metabolic abnormalities. Rule out . Lower suspicion for acute pancreatitis/cholecystitis/lithiasis or appendicitis/diverticulitis without tenderness on exam Plan: Labs, UA, viral testing, antiemetic, p.o. trial Please refer to course for remaining clinical decision making, interpretation of labs/imaging results, and discussions with consultants and/or family members. Differential Diagnosis Differential Diagnoses: The differential diagnosis associated with the presentation includes As above Admission/Observation Consideration of admission/observation: Escalation of care including admission/observation considered Lab Data [facility] Lab Attestation statement: I reviewed the patient's lab results. 12/04/24 08:38 12/04/24 08:38 Labs: Lab Results 12/04/24 12/04/24 Range/Units 08:38 13:37 WBC 7.4 (4.8-10.8) X10*3/uL RBC 4.34 (4.20-5.50) X10*6/uL Hgb 13.5 (12.0-16.0) g/dl Hct 40.5 (37.0-47.0) % MCV 93.3 (80.0-98.0) fL MCH 31.1 (27.0-33.0) pg MCHC 33.3 (31.0-35.0) g/dl RDW 13.1 (11.0-16.0) % Plt Count 330 D (160-400) X10*3/uL MPV 8.9 L (9.4-12.3) fL Immature Gran % (Auto) 0.4 (0.0-0.4) % Neut % (Auto) 63.5 (45-73) % Lymph % (Auto) 26.0 (20-40) % [place] % (Auto) 7.8 (2-11) % Eos % (Auto) 1.8 (0-4) % Baso % (Auto) 0.5 (0-2) % Lymph # (Auto) 1.9 (1.2-4.9) X10*3/uL [place] # (Auto) 0.6 (0.1-1.2) X10*3/uL Eos # (Auto) 0.1 (0.0-0.4) X10*3/uL Baso # (Auto) 0.0 (0.0-0.2) X10*3/uL Abs Immat Gran (auto) 0.03 (0.00-0.03) X10*3/uL Absolute Neuts (auto) 4.7 (2.0-8.3) x10*3/uL Absolute Nucleated RBC 0.000 (0.0-0.012) X10*3/uL Nucleated RBC % (auto) 0.0 (0.0-0.2) /100WBC Sodium 141 (135-145) mmol/L Potassium 4.1 (3.3-5.1) mmol/L Chloride 110 H (96-108) mmol/L Carbon Dioxide 25 (22-29) mmol/L Anion Gap 10 L (12-20) BUN 16 (9-16) mg/dL Creatinine 0.77 (0.5-1.4) mg/dL Estim Creat Clear Calc 95.5 Estimated GFR > 60 Random Glucose 95 (60-115) mg/dL Calcium 9.5 D (8.4-10.2) mg/dL Magnesium 2.1 (1.6-2.6) mg/dL Total Bilirubin 0.8 (0.0-1.0) mg/dL AST 24 (5-31) U/L ALT 22 (0-31) U/L Alkaline Phosphatase 54 (39-117) U/L Total Protein 7.5 (6.5-8.0) g/dL Albumin 4.6 (3.5-5.0) g/dL Lipase 41 (8-78) U/L Beta HCG, Quant < 2 mIU/mL Urine Color Yellow Urine Appearance Clear Urine pH 6.0 (5.0-9.0) Ur Specific [place] 1.025 (1.005-1.025) Urine Protein Negative (Neg-Trace) mg/dL Urine Glucose (UA) Negative (Negative) mg/dL Urine Ketones Negative (Negative) mg/dL Urine Blood Negative (Negative) Urine Nitrite Negative (Negative) Ur Leukocyte Esterase Trace H (Negative) Urine RBC 0-2 (0-2) /HPF Urine WBC 0-5 (0-5) /HPF Ur Squamous Epith Cells 6-10 (0-2) /HPF Urine Bacteria Trace (None Seen) Hyaline Casts 0-2 (0-2) /LPF Influenza Type A (PCR) NEGATIVE (Negative) Influenza Type B (PCR) NEGATIVE (Negative) RSV RNA Qual (PCR) NEGATIVE (Negative) SARS-CoV-2 RNA (RT-PCR) NEGATIVE (Negative) Radiology Impression Discussion of test interpretation with radiology: I have reviewed the radiologist's reading. Independent Historian Clinical information obtained from an independent historian. History obtained from or confirmed by: Parent External Record Review External record reviewed: Inpatient record, Office record, Outpatient record, Prior outpatient labs, Prior outpatient radiology, Primary care record and Outside ED record Tests considered The following testing was considered but not selected: As above Prescription Management I considered prescription management with: Other Chronic Conditions Patient?s care impacted by: Other Social Determinants Patient?s care significantly limited by Social Determinants of Health including: Other Social Determinant of Health Discharge Plan Discharge Clinical Impression: Nausea, Viral illness Patient Disposition: Home, Self-Care Instructions: Acute Nausea and Vomiting (ED) Additional Instructions: Your blood work and urine are reassuring Please have close follow up with her doctor Jessenia as an antinausea medication, please take as needed for nausea and vomiting If you are unable to eat or drink have persistent nausea/vomiting, abdominal pain, or fever return to the emergency department Prescriptions: New ondansetron 4 mg tablet,disintegrating 4 mg PO Q8H PRN (Reason: nausea and vomiting) Qty: 10 0RF No Action loratadine 10 mg tablet 10 mg PO DAILY Qty: 90 2RF Rx Instructions: Take 1 tablet by mouth daily albuterol sulfate 90 mcg/actuation HFA aerosol inhaler 1 inh inhalation QID PRN (Reason: shortness of breath or wheezing) Qty: 6.7 3RF Pulmicort Flexhaler 90 mcg/actuation aerosol powdr breath activated 1 inh inhalation BID Qty: 1 2RF promethazine 25 mg tablet 25 mg PO Q6H PRN (Reason: nausea and vomiting) Qty: 20 0RF ibuprofen 600 mg tablet 600 mg PO Q6H PRN (Reason: fever or pain) Qty: 30 0RF triamcinolone acetonide 0.025 % cream 1 appl topical BID Qty: 15 0RF omeprazole 20 mg capsule,delayed release(DR/EC) 20 mg PO DAILY Qty: 90 0RF buspirone 5 mg tablet 5 mg PO BID Qty: 60 1RF desog-e.estradiol/e.estradiol 0.15-0.02 mgx21 /0.01 mg x 5 tablet 1 tab PO DAILY Qty: 84 3RF hydroxyzine HCl 10 mg tablet 10 mg PO TID PRN (Reason: anxiety) Qty: 30 0RF Referrals: Keila Dorsey PA-C [Primary Care Provider] - 3 days Stand Alone Forms: Work/School Release Interventions: ED Discharge Assessment Last Done: 12/04/24 15:30 Discharge Date/Time: 12/04/24 15:31 Print Language: Turkmen
[2024-12-04 12:30] LABS: Lipase 41 U/L (8-78); Magnesium 2.1 mg/dL (1.6-2.6)
[2024-12-04] MEDS: Magnesium Hydrox/Alum Hydrox 30 ML ORAL.SUSP PO (13:37)
[2024-12-04] MEDS: Ondansetron ODT 4 MG TAB.RAPDIS TRANSLINGU (13:38)
[2024-12-04 13:49] LABS: Appearance Urine Clear; Color Urine Yellow; Glucose Urine UA Negative (Negative); Leukocyte Esterase Urine Trace (Negative); Nitrite Urine Negative (Negative); Specific Gravity - Urine 1.025 (1.005-1.025); UMIC TRIGGER UACC YES; Urine Blood Negative (Negative); Urine Ketones Negative (Negative); Urine Protein Negative (Neg-Trace)
[2024-12-04 13:51] LABS: Bacteria Urine Trace (None Seen); Hyaline Casts Urine 0-2 /LPF (0-2); RBC Urine 0-2 /HPF (0-2); WBC Urine 0-5 /HPF (0-5)
[2024-12-04 15:30] VITALS: BP 0/0; PULSE 0; RESP 0; TEMP -17.7; TEMP 0
--- NOTE | 2024-12-04 15:30 | PC.NURSE ---
Pt. d/c'ed by Catherine HU
--- OUTSIDE RECORDS SUMMARY | 2024-12-04 17:03 | XMS_ITS | Referral Summary ---
Author Organization [facility] 's Address [address] [place] [address] Care Team Providers Care Fraud Representative Name Role Phone Bee Perkins Primary Care Provider Source Comments Please note that some or all of the patient's information could have additional privacy protections. State laws allow health care providers to render certain types of treatment to minors without parental consent. Please do not assume that this information can be shared solely by obtaining just the consent of the patient's parent/guardian. Please determine if all or part of the patient's care was rendered without parent/guardian involvement. And, if so, obtain the minor's consent prior to disclosure.[facility]'s Allergies Active Allergy Reactions Criticality Noted Date Comments Birch [place] 12/06/2019 Dog Dander 12/06/2019 Feathers 12/06/2019 Medications melatonin 5 mg tabletIndication s:Insomnia, unspecified type Take 1 tablet (5 mg) by mouth nightly 30 tablet 6 12/06/2019 Active Active Problems Problem Noted Date Diagnosed Date Tension headache 12/06/2019 Dysthymia 12/06/2019 Stress 12/06/2019 Anxiety 12/06/2019 Social History Tobacco Use Types Packs/Day Years Used Date Smoking Tobacco: Never Comments Unknown Sex and Gender Information Value Date Recorded Sex Assigned at Not on file Legal Sex Female 2:41 PM EDT Gender Identity Not on file Sexual Orientation Not on file Last Filed Vital Signs Vital Sign Reading Time Taken Comments Blood Pressure 110/72 12/06/2019 11:24 AM EST Pulse 100 12/06/2019 11:24 AM EST Temperature - - Respiratory Rate - - Oxygen Saturation - - Inhaled Oxygen Concentration - - Weight 56 kg (123 lb 7.3 oz) 12/06/2019 11:24 AM EST Height 161 cm (5' 3.39 ) 12/06/2019 11:24 AM EST Body Mass Index 21.6 12/06/2019 11:24 AM EST Plan of Treatment Not on file Insurance [facility] [employer] Care Teams Fraud Representative Relationship Specialty Start Date End Date Bee Perkins PA [address] [place] [address] [place] [address] PCP - General Physician Rv Technician 08/23/19
--- OUTSIDE RECORDS SUMMARY | 2024-12-04 17:03 | XMS_ITS | Clinical Summary ---
Author Organization [facility] 's Address [address] [place] [address] Care Team Providers Care Plate Slitter And Inspector Name Role Phone Bee Perkins Primary Care [...] so, obtain the minor's consent prior to disclosure.[facility] Allergies Active Allergy Reactions Criticality Noted Date Comments Birch [place] 12/06/2019 Dog Dander 12/06/2019 Feathers 12/06/2019 Medications [...] 12/06/2019 11:24 AM EST Plan of Treatment Health Maintenance Due Date Last Done Comments DTaP/TDAP/TD VACCINES (1 - Tdap) 2010 ADOLESCENT HIV SCREENING 2016 COVID-19 Vaccine (2023-2 5 season) 2024 INFLUENZA (#1) 2024 NIRSEVIMAB VACCINES UNDER 8 MONTHS Aged Out No longer eligible based on patient's age to complete this topic Insurance [facility] PL[facility] Care Teams Plate Slitter And Inspector Relationship Specialty Start Date End Date Bee Perkins PA [address] [place] [address] [place] [address] PCP - General Physician Inspector Semiconductor Wafer 08/23/19
== END 2024-12-04 15:31 | disposition home or self-care (01) ==
PROVIDERS: Physician Assistant; Emergency Provider Emergency Medicine
DX: B34.9 Viral infection, unspecified (principal); R11.2 Nausea with vomiting, unspecified; R19.7 Diarrhea, unspecified; Z03.818 Encounter for observation for suspected exposure to other biological agents ruled out; J45.909 Unspecified asthma, uncomplicated; Z79.899 Other long term (current) drug therapy
CPT/HCPCS: 0241U; 80053; 81001; 83690; 83735; 84702; 85025; 99282; 99283

== ENCOUNTER 2024-12-07 14:42 | Outpatient (AMB) | payer OTHER, MEDICAID, SELFPAY ==
--- NOTE | 2024-12-07 14:42 | MHC.PC.OV ---
Intake Visit Reasons: f/u medication telehealth [phone] Stamping Bench Die Maker Required: No Information Interpreted: non-clinical & clinical Algorithm Design Engineer: Not Required per policy Accompanied by: Self / Same As Patient Allergies dog dander Allergy (Mild, Verified 12/07/24 14:46) Sneezing pollen Allergy (Unknown, Uncoded 12/07/24 14:46) Unknown Soap Allergy (Unknown, Uncoded 12/07/24 14:46) Unknown Medication List - Last Reconciled 12/07/24 by Keila Dorsey PA-C albuterol sulfate 90 mcg/actuation 1 inh inhalation QID PRN budesonide 90 mcg/actuation (Pulmicort Flexhaler) 1 inh inhalation BID buspirone 5 mg PO BID desog-e.estradiol/e.estradiol 0.15-0.02 mgx21 /0.01 mg x 5 1 tab PO DAILY hydroxyzine HCl 10 mg PO TID PRN ibuprofen 600 mg PO Q6H PRN loratadine 10 mg PO DAILY omeprazole 20 mg PO DAILY ondansetron 4 mg PO Q8H PRN promethazine 25 mg PO Q6H PRN triamcinolone acetonide 0.025% 1 appl topical BID Tobacco use date assessed: 12/07/24 Dental Screening Dental Screen Date: 12/07/24 Did you have a dental visit in the last 12 months?: No Did you have a dental problem in the last 6 months where you did not have access to dental care?: No Was dental information given to patient?: Patient has dentist HPI f/u medication telehealth [phone] HPI Details 19-year-old female with past medical history of anxiety and asthma last seen 10/2024 coming in for follow up on depression and anxiety. At her last visit BuSpar was discontinued and hydroxyzine was added for as needed anxiety. In review of the notes, patient was seen in [facility] 12/04/2024 for nausea and vomiting diagnosed with viral illness and given Zofran and discharged home. Patient tells us she has been feeling generally well. She is still recovering from the viral illness that she was diagnosed with a few days ago in the ED and did vomit this morning but has noticed her stomach pain and nausea has been improving. The hydroxyzine has not been working for anxiety as most of her anxiety is throughout the day in the hydroxyzine makes her too sleepy. She will notice when she has anxiety attacks her palms we will begin to sweat and she will feel cold but it typically subsides on its own. [facility] Medical History Hypotension Asthma Surgical History No pertinent past surgical history Family History Father HTN (hypertension) Diabetes Mother Rheumatoid arthritis HTN (hypertension) Lupus Maternal Aunt Breast cancer Family/Other Mental health disorder Substance use disorder Social History Housing: Apartment Alcohol intake: never Patient Tobacco Use Status: Never used Tobacco e-Cigarette/Vaping Use: Never Used Second Hand Smoke Exposure: No Substance Use Type: Marijuana service: No Current occupational status: employed Current occupational exposures/hazards: No Cognitive needs: No Hearing needs: No Vision needs: No Female Reproductive History Menstrual Age of Menarche: 10 Questionnaire PHQ-9 Over the last 2 weeks, how often have you been bothered by any of the following problems? 1. Little interest or pleasure in doing things: more than half the days 2. Feeling down, depressed, or hopeless: several days 3. Trouble falling or staying asleep, or sleeping too much: nearly every day 4. Feeling tired or having little energy: nearly every day 5. Poor appetite or overeating: nearly every day 6. Feeling bad about yourself - or that you are a failure or have let yourself or your family down: nearly every day 7. Trouble concentrating on things, such as reading the newspaper or watching television: more than half the days 8. Moving or speaking so slowly that other people could have noticed. Or the opposite - being so fidgety or restless that you have been moving around a lot more than usual: several days 9. Thoughts that you would be better off or of hurting yourself in some way: several days Total score: 19 40417 - PHQ-9 Billing: Yes Source: Developed by Drs. Star Ballard, Tricia Perkins, Mirza Merino and colleagues, with an educational mone from [employer]. Thrive Questionnaire Date Thrive assessed: 12/07/24 I am a: Patient What is your living situation today?: I have a steady place to live Within the past 12 months, did the food you bought not last and you didn't have the money to get more?: Never true Within the past 12 months, did you worry whether your food would run out before you got money to buy more?: Never true Do you have trouble paying for medicines?: No Do you have trouble getting transportation to medical appointments?: No Do you have trouble paying your heating and electricity bill?: No Do you have trouble taking care of your child, family member or friend?: No Do you have trouble with day-to-day activities such as bathing, preparing meals, shopping, managing finances, etc.?: No Are you currently unemployed and looking for a job?: No Are you interested in more education?: No Please select the resources that you would like help with: None Currently or been in a relationship where the following occur: No concerns reported THRIVE Score: 0 AUDIT C Alcohol Use Questionnaire (AUDIT-C) 1. How often do you have a drink containing alcohol?: Monthly or less 2. How many drinks containing alcohol do you have on a typical day when you are drinking?: 1 or 2 3. How often do you have six or more drinks on one occasion?: Never Total Score: 1 MABLE-7 AMB Questionnaire MABLE-7 Date MABLE - 7 assessed: 12/07/24 Feeling nervous, anxious, or on edge: 3 = Nearly every day Not being able to stop or control worryin = Nearly every day Worrying too much about different things: 3 = Nearly every day Trouble relaxin = More than half the days Being so restless that it is hard to sit still: 1 = Several days Becoming easily annoyed or irritable: 3 = Nearly every day Feeling afraid as if something awful might happen: 3 = Nearly every day Total MABLE-7 score (0-4 normal; 5-9 mild; 10-14 moderate; 15-21 severe): 18 Source: Developed by Drs. Star Ballard, Tricia Perkins, Mirza Merino and colleagues, with an educational mone from [employer]. MABLE-7 Assessment Billing MABLE-7 Assessment Tool: MABLE-7 Assessment 97256 Review of Systems Const Denies body aches, Denies chills, Reports excessive sweating (In episodes), Denies fever(s), Denies headache(s) and Denies poor appetite Eyes Reports no additional complaints ENT Denies dizziness and Denies headache(s) Card Denies chest pain, Denies lightheadedness and Denies dyspnea Resp Denies cough and Denies dyspnea GI Denies abdominal pain, Denies constipation, Denies diarrhea, Reports nausea and Reports vomiting Reports no additional complaints Musc Reports no additional complaints and Denies abnormal gait Skin/Breast Reports system reviewed and no additional complaints, except as documented Neuro Denies abnormal gait, Denies dizziness and Denies headache(s) Psych Reports no additional complaints Endo Reports excessive sweating (In episodes) Physical exam (Primary Care) Vital Signs: Physical exam not performed due to nature of telehealth visit. Tobacco/Smoking Status: Tobacco use Status Tobacco use date assessed 12/07/24 12/07/24 14:47 Patient Tobacco Use Status Never used Tobacco 12/07/24 14:47 e-Cigarette/Vaping Use Never Used 12/07/24 14:47 PHQ-9: PHQ-9 Score PHQ-9: Total score 19 12/07/24 14:52 Thrive Assessment: Date of Thrive Assessment Date Thrive assessed 12/07/24 12/07/24 14:47 Currently or been in a relationship where the following occur: No concerns reported Telehealth Telehealth Telehealth Platform: Telephone Location of provider rendering services: practice address Location of patient: address on file Patient Identification confirmed using: Name, : Yes Telehealth method: video Patient verbally consented to treatment: Yes Patient verbally consented to billing insurance company: Yes Patient informed of any privacy concerns related to visit: Yes Coding Level of Care Code Est Pt Level 3 (45020) Diagnoses Anxiety with depression F41.8 Panic attacks F41.0 KOKO positive R76.8 GERD (gastroesophageal reflux disease) K21.9 Esophagitis presence: esophagitis presence not specified Additional Codes MABLE-7 Assessment Billing - MABLE-7 Assessment Tool: MABLE-7 Assessment 16788 ([id number]) PHQ-9 - 52181 - PHQ-9 Billing: Yes ([id number]) Assessment & Plan Assessment & Plan (1) Anxiety with depression: Code(s): F41.8 - Other specified anxiety disorders Category: Medical Plan: Patient continues to have anxiety with depressive features we have tried BuSpar and hydroxyzine and she has tried antidepressants in the past without good relief. Due to her anxiety and panic episodes she has been missing work. I recommended evaluation from our outpatient psych clinic for medical management. (2) Panic attacks: Code(s): F41.0 - Panic disorder [episodic paroxysmal anxiety] Category: Medical Plan: Patient having occasional anxiety/panic attacks in which her palms becomes sweaty and she feels called before the anxiety resolves. She has tried hydroxyzine for this concern but feels it makes her too drowsy and unable to use the medication while she was at work. Referral placed to outpatient psych clinic. (3) KOKO positive: Code(s): R76.8 - Other specified abnormal immunological findings in serum Category: Medical Plan: Patient being KOKO positive feels her sweating and anxiety may be related to an autoimmune condition. Advised patient to reach out to rheumatology to see if she can schedule an earlier appointment (4) GERD (gastroesophageal reflux disease): Code(s): K21.9 - Gastro-esophageal reflux disease without esophagitis Category: Medical Qualifiers: Esophagitis presence: esophagitis presence not specified Qualified Code(s): K21.9 - Gastro-esophageal reflux disease without esophagitis Plan: Avoid trigger foods such as citrus, tomato products, soda, caffeine, spicy foods and other foods that may be irritating to your stomach. Avoid laying flat 3-4 hours after eating and elevate the head of the bed 30 degrees to prevent acid from moving into the esophagus. Patient continues to have heartburn, gas and nausea primarily with eating. She admits she has not been taking the omeprazole as prescribed and has only been using as needed. Recommend using omeprazole daily and follow up in 2 months. Plan This note was constructed using voice recognition software. While every effort has been made to ensure accuracy and film library clerk, still areas may have been included sometimes these areas may affect the content or meeting of the given symptoms. Total time spent caring for the patient today was 20 minutes. This includes time spent before the visit reviewing the chart, time spent during the visit, and time spent after the visit and documentation. Orders: Referrals Psychiatry Outpatient Consultation Service F41.0 - Panic disorder [episodic paroxysmal anxiety], F41.8 - Other specified anxiety disorders Medications: Refilled omeprazole 20 mg PO DAILY 90 caps 0RF Discontinued buspirone Discontinued Reason: Patient no longer taking 5 mg PO BID 60 tabs 1RF
--- OUTSIDE RECORDS SUMMARY | 2024-12-07 18:37 | XMS_ITS | Referral Summary ---
Author Organization [facility] 's Address [address] [place] [address] Care Team Providers Care Cyber Security Manager Name Role Phone Bee Perkins Primary Care [...] so, obtain the minor's consent prior to disclosure.[facility] Allergies Active Allergy Reactions Criticality Noted Date Comments Birch [place] 12/06/2019 Dog Dander 12/06/2019 Feathers 12/06/2019 Medications [...] Plan of Treatment Not on file Insurance [facility] [employer] PLAN Care Teams Cyber Security Manager Relationship Specialty Start Date End Date Bee Perkins PA [address] [place] [address] [place] [address] PCP - General Physician Nozzle Worker 08/23/19
--- OUTSIDE RECORDS SUMMARY | 2024-12-07 18:37 | XMS_ITS | Clinical Summary ---
Author Organization [facility] 's Address [address] [place] [address] Care Team Providers Care Supervisor Ship Maintenance Services Name Role Phone Bee Perkins Primary Care [...] so, obtain the minor's consent prior to disclosure.[facility] Allergies Active Allergy Reactions Criticality Noted Date Comments Birch [place] 12/06/2019 Dog Dander 12/06/2019 Feathers 12/06/2019 Medications [...] patient's age to complete this topic Insurance [facility] PLAN Care Teams Supervisor Ship Maintenance Services Relationship Specialty Start Date End Date Bee Perkins PA [address] [place] [address] [place] [address] PCP - General Physician Venetian Blind Worker 08/23/19
== END 2024-12-07 15:18 | disposition home or self-care (01) ==
LOC: HO.HMCH 14:42
DX: F41.8 Other specified anxiety disorders (principal); F41.0 Panic disorder [episodic paroxysmal anxiety]; R76.8 Other specified abnormal immunological findings in serum; K21.9 Gastro-esophageal reflux disease without esophagitis

== ENCOUNTER → 2024-12-07 14:42 | Outpatient (BNVA) | payer OTHER, MEDICAID, SELFPAY | DX: F41.8 Other specified anxiety disorders (principal); F41.0 Panic disorder [episodic paroxysmal anxiety]; R76.8 Other specified abnormal immunological findings in serum; K21.9 Gastro-esophageal reflux disease without esophagitis | CPT/HCPCS: 96127 ==

== ENCOUNTER 2025-01-01 11:26 | Outpatient (AMB) | payer OTHER, SELFPAY ==
--- NOTE | 2025-01-01 11:28 | MHC.OFFVIS ---
Vital Signs 01/01/25 11:29 Height 5 ft 3 in Weight 120 lb BMI 21.3 BP 110/68 Intake Visit Reasons: Vaginal Itch Medical Stenographer Required: No Medical Stenographer Services: Medical Stenographer Present Information Interpreted: clinical only Cylinder Devalver: Cylinder Devalver Present Allergies dog dander Allergy (Mild, Verified 01/01/25 11:29) Sneezing pollen Allergy (Unknown, Uncoded 01/01/25 11:29) Unknown Soap Allergy (Unknown, Uncoded 01/01/25 11:29) Unknown Medication List - Last Reconciled 01/01/25 by Marsha Hatch CNM albuterol sulfate 90 mcg/actuation 1 inh inhalation QID PRN budesonide 90 mcg/actuation (Pulmicort Flexhaler) 1 inh inhalation BID hydroxyzine HCl 10 mg PO TID PRN ibuprofen 600 mg PO Q6H PRN loratadine 10 mg PO DAILY omeprazole 20 mg PO DAILY ondansetron 4 mg PO Q8H PRN promethazine 25 mg PO Q6H PRN triamcinolone acetonide 0.025% 1 appl topical BID Is last menstrual period known: Yes Last menstrual period: 12/15/24 HPI HPI Vaginal Itch: Details: Patient is here because she has got a vaginal itch she does not have an odor or discharge. She is sexually active and she does use condoms. She stopped the control pills because they were too expensive with the co-pay. She says she has waiting for an appointment with Rheumatology get worked up because she has unusual symptoms with feeling chills and then breaking out in a sweat she is covered in bed and she had a positive KOKO test. Also she is on omeprazole for acid reflux and nausea. 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 Her periods are regular. She has no interested in going on on long-term method and she does not want the pills at this time. She just wants to get checked for infection. [facility] Medical History Hypotension Asthma Surgical History No pertinent past surgical history Family History Father HTN (hypertension) Diabetes Mother Rheumatoid arthritis HTN (hypertension) Lupus Maternal Aunt Breast cancer Family/Other Mental health disorder Substance use disorder Social History (Reviewed 01/01/25 @ 11:30 by Sofiya Franco [facility]) Housing: Apartment Alcohol intake: never Patient Tobacco Use Status: Never used Tobacco e-Cigarette/Vaping Use: Never Used Second Hand Smoke Exposure: No Substance Use Type: Marijuana service: No Current occupational status: employed Current occupational exposures/hazards: No Cognitive needs: No Hearing needs: No Vision needs: No Female Reproductive History Menstrual Age of Menarche: 10 Duration of menses: 3-5 days Date of last menstrual period: 12/15/24 control method: none Total pregnancies: 0 Full term: 0 Physical Exam Vital Signs: Last Vital Signs BP 110/68 01/01/25 11:29 BMI result Body Mass Index 21.3 External Female Exam: normal external appearance and normal appearance of the urethra Speculum Exam - Vagina: normal appearance of the vagina and normal vaginal discharge Speculum Exam - Cervix: normal appearance of the cervix and Cervical os closed Assessment & Plan Assessment & Plan (1) control counseling: Code(s): Z30.09 - Encounter for other general counseling and advice on contraception Category: Medical (2) Vaginal itching: Code(s): N89.8 - Other specified noninflammatory disorders of vagina Category: Medical Plan Cultures done for gonorrhea chlamydia trichomoniasis bacterial vaginosis and yeast we will await results no obvious infection by appearance discharge could possibly be consistent with either normal findings bacterial vaginosis or yeast but there was no redness or inflammation and no clingy discharge. Discussed patient's other medical symptoms and concerns encouraged her asking lots of questions of her other providers so she has an understanding of what the thoughts are, I offered her prescription for Plan B and for any other method but at this time she is content with the condoms and wants to stick with those and she declined even a plan B prescription. (so even though she now has insurance through her job she is finding the Co pays more challenging on prescriptions). Her last Pap smear was normal which was her 1st at age 19. see her for any visit she needs. Coding Level of Care Code Est Pt Level 3 (21650) Diagnoses control counseling Z30. Vaginal itching N89.8
[2025-01-01 11:29] VITALS: BP 110/68; BMI 21.3
--- OUTSIDE RECORDS SUMMARY | 2025-01-01 13:11 | XMS_ITS | Clinical Summary ---
Author Organization [facility] 's Address [address] [place] [address] Care Team Providers Care Sash Maker Name Role Phone Bee Perkins Primary Care Provider [phone] Source Comments Please note that some or [...] so, obtain the minor's consent prior to disclosure.[facility]'s Allergies Active Allergy Reactions Criticality Noted Date Comments Birch [place] 12/06/2019 Dog Dander 12/06/2019 Feathers 12/06/2019 Medications [...] patient's age to complete this topic Insurance [facility] Care Teams Sash Maker Relationship Specialty Start Date End Date Bee Perkins PA [address] [place] [address] [place] [address] PCP - General Physician Dry Ice Machine Operator 08/23/19
== END 2025-01-01 11:53 | disposition home or self-care (01) ==
PROVIDERS: Visit Provider Advanced Practice Midwife
DX: Z30.09 Encounter for other general counseling and advice on contraception (principal); N89.8 Other specified noninflammatory disorders of vagina
CPT/HCPCS: 99213

== ENCOUNTER 2025-01-01 11:26 | Outpatient (REF) | payer OTHER, SELFPAY ==
[2025-01-02 13:21] LABS: CT PCR NOT DETECTED (Not Detect.); NG PCR NOT DETECTED (Not Detect.)
[2025-01-02 14:59] LABS: Bacterial Vaginosis PCR NEGATIVE (Negative); Candida Group PCR DETECTED (Not Detect); Candida glab krusei PCR NOT DETECTED (Not Detect); Trichomonas vaginalis PCR NOT DETECTED (Not Detect)
== END 2025-01-01 11:27 | disposition home or self-care (01) ==
LOC: HO.LAB 11:26
PROVIDERS: Visit Provider Advanced Practice Midwife
DX: N89.8 Other specified noninflammatory disorders of vagina (principal); Z30.09 Encounter for other general counseling and advice on contraception
CPT/HCPCS: 81515; 87491; 87591

== ENCOUNTER 2025-02-02 09:48 | Outpatient (AMB) | payer OTHER, SELFPAY ==
--- NOTE | 2025-02-02 09:48 | MHC.PC.OV ---
Intake Visit Reasons: Discuss labs Ceramic Plater Required: No Airplane Pilot Crop Dusting: Not Required per policy Accompanied by: Self / Same As Patient Allergies dog dander Allergy (Mild, Verified 02/02/25 10:23) Sneezing pollen Allergy (Unknown, Uncoded 02/02/25 10:23) Unknown Soap Allergy (Unknown, Uncoded 02/02/25 10:23) Unknown Tobacco use date assessed: 12/07/24 Dental Screening Dental Screen Date: 12/07/24 HPI Discuss labs HPI Details 19-year-old female with past medical history of anxiety and asthma last seen 11/2024 presenting via video telehealth for acute problem. Patient tells us today she has been having worsening anxiety with panic attacks that affect her day to day. She has not yet had evaluation by outpatient psych clinic and is awaiting an appointment at this time. She tried using hydroxyzine as needed however it made her drowsy and unable to do her job. [facility] Medical History Hypotension Asthma Surgical History No pertinent past surgical history Family History Father HTN (hypertension) Diabetes Mother Rheumatoid arthritis HTN (hypertension) Lupus Maternal Aunt Breast cancer Family/Other Mental health disorder Substance use disorder Social History Housing: Apartment Alcohol intake: never Patient Tobacco Use Status: Never used Tobacco e-Cigarette/Vaping Use: Never Used Second Hand Smoke Exposure: No Substance Use Type: Marijuana service: No Current occupational status: employed Current occupational exposures/hazards: No Cognitive needs: No Hearing needs: No Vision needs: No Female Reproductive History Menstrual Age of Menarche: 10 Questionnaire Thrive Questionnaire Date Thrive assessed: 12/07/24 MABLE-7 AMB Questionnaire MABLE-7 Date MABLE - 7 assessed: 12/07/24 Source: Developed by Drs. Stra Ballard, Tricia Perkins, Mirza Merino and colleagues, with an educational mone from [employer]. Review of Systems Const Denies body aches, Denies chills, Denies fever(s), Denies headache(s) and Denies poor appetite Eyes Reports no additional complaints ENT Denies dysphagia, Denies dizziness, Denies headache(s) and Denies odynophagia Card Denies chest pain, Denies syncope, Denies edema, Denies irregular heart rhythm, Denies lightheadedness and Denies dyspnea Resp Denies cough and Denies dyspnea GI Denies abdominal pain, Denies constipation, Denies dysphagia, Denies diarrhea, Denies nausea, Denies odynophagia and Denies vomiting Reports no additional complaints Musc Reports no additional complaints and Denies abnormal gait Skin/Breast Reports system reviewed and no additional complaints, except as documented Neuro Denies abnormal gait, Denies dizziness, Denies syncope and Denies headache(s) Psych Reports no additional complaints Physical exam (Primary Care) Vital Signs: physical exam not performed due to nature of telehealth visit. Tobacco/Smoking Status: Tobacco use Status Tobacco use date assessed 12/07/24 02/02/25 09:50 Patient Tobacco Use Status Never used Tobacco 02/02/25 09:50 e-Cigarette/Vaping Use Never Used 02/02/25 09:50 Thrive Assessment: Date of Thrive Assessment Date Thrive assessed 12/07/24 02/02/25 09:50 Telehealth Telehealth Telehealth Platform: [employer] Location of provider rendering services: practice address Location of patient: address on file Patient Identification confirmed using: Name, : Yes Telehealth method: video Patient verbally consented to treatment: Yes Patient verbally consented to billing insurance company: Yes Patient informed of any privacy concerns related to visit: Yes Coding Level of Care Code Tele Est Pt Level 3 (76279) Diagnoses Panic attacks F41.0 Generalized anxiety disorder F41.1 Assessment & Plan Assessment & Plan (1) Panic attacks: Code(s): F41.0 - Panic disorder [episodic paroxysmal anxiety] Category: Medical Plan: Patient complaining of panic attacks that interfere with her daily work schedule. She tried hydroxyzine as needed at the lowest dose however medication made her too drowsy and unable to take this medication. Referral placed to outpatient psych clinic (2) Generalized anxiety disorder: Code(s): F41.1 - Generalized anxiety disorder Category: Medical Plan: Patient having worsening anxiety plan to start on Prozac and referral placed to outpatient psych she has a appointment on Wednesday. Plan This note was constructed using voice recognition software. While every effort has been made to ensure accuracy and tavern operator, still areas may have been included sometimes these areas may affect the content or meeting of the given symptoms. Total time spent caring for the patient today was 20 minutes. This includes time spent before the visit reviewing the chart, time spent during the visit, and time spent after the visit and documentation. Medications: New fluoxetine (Prozac) 10 mg PO DAILY 90 caps 0RF
== END 2025-02-02 10:22 | disposition home or self-care (01) ==
LOC: HO.HMCH 09:48
DX: F41.0 Panic disorder [episodic paroxysmal anxiety] (principal); F41.1 Generalized anxiety disorder

== ENCOUNTER 2025-02-06 16:13 | Outpatient (AMB) | payer OTHER, SELFPAY ==
--- NOTE | 2025-02-06 16:20 | MHC.OFFVISPS ---
Intake Intake Visit Reasons: consultation Allergies dog dander Allergy (Mild, Verified 02/20/25 15:43) Sneezing pollen Allergy (Unknown, Uncoded 02/20/25 15:43) Unknown Soap Allergy (Unknown, Uncoded 02/20/25 15:43) Unknown Medication List - Last Reconciled 02/06/25 by Margret Suero, DREA albuterol sulfate 90 mcg/actuation 1 inh inhalation QID PRN budesonide 90 mcg/actuation (Pulmicort Flexhaler) 1 inh inhalation BID fluoxetine (Prozac) 10 mg PO DAILY hydroxyzine HCl 10 mg PO TID PRN ibuprofen 600 mg PO Q6H PRN loratadine 10 mg PO DAILY omeprazole 20 mg PO DAILY ondansetron 4 mg PO Q8H PRN promethazine 25 mg PO Q6H PRN triamcinolone acetonide 0.025% 1 appl topical BID HPI- Psychiatric Chief Complaint: consultation HPI Narrative: Pt referred by PCP due to anxiety and panic. Previously prescribed buspar, but this was ineffective in managing symptoms. Pt was prescribed hydroxyzine at her previous visit in October, but reported no changes in symptoms and was experiencing drowsiness. Pt is in need of medication optimization. PHQ9= 18 and GAD7= 17. Pt reports depression and anxiety started around the age 14. She reports is anxious all the time, easily tearful has crying spells, she gets easily irritated at home, she worries all the time. 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 Pt reports poor sleep and wakes up with cold sweats / Past Psychiatric History: tried to overdose age 14 has been hospital ER for panic attacks, No IPLOC. tried outpt therapy in past - didn't like at age 14. has tried hydroxyzine, amitriptyline, buspar and sertraline in past Subjective Subjective Subjective Medication Compliance: Yes Side effects from medications: No Mental Status Exam Mental Status Exam Patient Appearance: Well Grooomed and Appropriate Patient Orientation: Person, Place, Time and Situation Level of Consciousness: Awake and Appropriate Patient Behavior: Cooperative and Anxious Mood Description: Anxious and Sad Affect Description: Anxious and Sad Patient Cognition Impaired: No Ability to Follow Directions: Good Speech Pattern: Clear and Soft-Spoken Memory Description: Intact Hallucinations: None Delusions: Not Present Thought Process: Intact Thought Content: positive for Intact Judgement: Fair Assessment and Plan Assessment & Plan (1) History of night sweats: Status: Acute Code(s): Z87.898 - Personal history of other specified conditions (2) Major depressive disorder, recurrent episode with anxious distress: Status: Acute Code(s): F33.9 - Major depressive disorder, recurrent, unspecified (3) Generalized anxiety disorder: Status: Acute Code(s): F41.1 - Generalized anxiety disorder (4) Panic attacks: Status: Acute Code(s): F41.0 - Panic disorder [episodic paroxysmal anxiety] Plan prozac 10 mg QOD start lamictal 12.5 mg twice a day star t vitamin b50 complex every other day starrt magnesium glycinate 200mg at bedtime retun in 4 weeks Medications: New lamotrigine (Lamictal) 12.5 mg (1/2 x 25 mg) PO BID 30 tabs 0RF 30 days Orders: Orders Vitamin B12 and Folate 02/06/25 R53.83 - Other fatigue Magnesium 02/06/25 F33.9 - Major depressive disorder, recurrent, unspecified Complete Blood Count Auto Diff 02/06/25 R53.83 - Other fatigue Lyme IgG/IgM w/reflex to WB 02/06/25 R53.83 - Other fatigue, Z87.898 - Personal history of other specified conditions Counseling and coordination of Care Pt. Self Management counseling: Maintenance-social rhythm, Mod caffeine/ETOH intake, Nutrition education and improvement, Sleep hygiene, Behavior activation and General coping skills Medication management counseling: Effectiveness, Side effects, Dosing range, Duration, Drug interaction and Adherence Diagnosis and Prognosis Counseling: Accuracy of diagnosis, Prognosis over time, Impact of diagnosis on life functions, Impact of family relationship, Problematic behaviors secondary to diagnosis and Adequacy of current interventions Details: I spent 75 minutes reviewing the record, seeing the patient and documenting in the medical record. Counseling provided to the patient/caregiver as outlined below. Addressed patient/caregiver concerns regarding current medication regime including effective adherence. Addressed patient/caregiver concerns regarding diagnosis and prognosis including accuracy of diagnosis, prognosis over time, impact of diagnosis. Addressed patient/caregiver concerns regarding impact of recent stressors. [facility] Medical History Hypotension Asthma Surgical History No pertinent past surgical history Family History Father HTN (hypertension) Diabetes Mother Rheumatoid arthritis HTN (hypertension) Lupus Maternal Aunt Breast cancer Family/Other Mental health disorder Substance use disorder Social History (Updated 02/20/25 @ 15:43 by YOANA Julian) Housing: Apartment Alcohol intake: never Patient Tobacco Use Status: Never used Tobacco e-Cigarette/Vaping Use: Never Used Second Hand Smoke Exposure: No Substance Use Type: Marijuana Substance Use Frequency: Daily service: No Current occupational status: employed Current occupational exposures/hazards: No Cognitive needs: No Hearing needs: No Vision needs: No Social History: lives with her mother and 21 yo brother; 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
--- OUTSIDE RECORDS SUMMARY | 2025-02-06 18:47 | XMS_ITS | Clinical Summary ---
Author Organization [facility] 's Address [address] [place] [address] Care Team Providers Care Electron Beam Photo Mask Maker Name Role Phone Bee Perkins Primary [...] so, obtain the minor's consent prior to disclosure.[facility] Allergies Active Allergy Reactions Criticality Noted Date Comments Birch [place] 12/06/2019 Dog Dander 12/06/2019 Feathers 12/06/2019 Medications [...] patient's age to complete this topic Insurance [facility] Care Teams Electron Beam Photo Mask Maker Relationship Specialty Start Date End Date Bee Perkins PA [address] [place] [address] [place] [address] PCP - General Physician Bottle Labeler 08/23/19
== END 2025-02-06 17:21 | disposition home or self-care (01) ==
LOC: HO.HOP 16:13
PROVIDERS: Visit Provider Clinical Nurse Specialist Psychiatric/Mental Health
DX: F33.9 Major depressive disorder, recurrent, unspecified (principal); F41.1 Generalized anxiety disorder; F41.0 Panic disorder [episodic paroxysmal anxiety]
CPT/HCPCS: 90792

== ENCOUNTER → 2025-02-06 16:13 | Outpatient (BNVA) | payer OTHER, SELFPAY | PROVIDERS: Visit Provider Clinical Nurse Specialist Psychiatric/Mental Health | DX: F33.9 Major depressive disorder, recurrent, unspecified (principal); F41.1 Generalized anxiety disorder; F41.0 Panic disorder [episodic paroxysmal anxiety]; Z71.89 Other specified counseling; Z87.898 Personal history of other specified conditions | CPT/HCPCS: 90792 ==

== ENCOUNTER 2025-02-20 15:41 | Outpatient (AMB) | payer OTHER, SELFPAY ==
--- NOTE | 2025-02-20 15:42 | A.OFFPC_ITS ---
Intake Visit Reasons: 2 month f/u Sand Technician Required: No Yard Switcher: Not Required per policy Accompanied by: Self / Same As Patient Allergies dog dander Allergy (Mild, Verified 02/20/25 15:43) Sneezing pollen Allergy (Unknown, Uncoded 02/20/25 15:43) Unknown Soap Allergy (Unknown, Uncoded 02/20/25 15:43) Unknown Medication List - Last Reconciled 02/20/25 by Keila Dorsey PA-C albuterol sulfate 90 mcg/actuation 1 inh inhalation QID PRN budesonide 90 mcg/actuation (Pulmicort Flexhaler) 1 inh inhalation BID fluoxetine (Prozac) 10 mg PO DAILY hydroxyzine HCl 10 mg PO TID PRN ibuprofen 600 mg PO Q6H PRN lamotrigine (Lamictal) 12.5 mg (1/2 x 25 mg) PO BID 30 days loratadine 10 mg PO DAILY omeprazole 20 mg PO DAILY ondansetron 4 mg PO Q8H PRN promethazine 25 mg PO Q6H PRN triamcinolone acetonide 0.025% 1 appl topical BID Tobacco use date assessed: 12/07/24 Dental Screening Dental Screen Date: 12/07/24 HPI 2 month f/u HPI Details 19-year-old female with past medical his tory of anxiety and asthma last seen 01/2025 presenting via telehealth for follow up on anxiety. Patient was started on fluoxetine at her last visit. Patient was seen by outpatient psych provider 02/06/2025. Patient tells us today she has not yet picked up the medication prescribed by the outpatient psych clinic as she is been having issues with her co-pay. She is still waiting to see Rheumatology in March. She has not had to use the hydroxyzine for anxiety at this time. [facility] Medical History Hypotension Asthma Surgical History No pertinent past surgical history Family History Father HTN (hypertension) Diabetes Mother Rheumatoid arthritis HTN (hypertension) Lupus Maternal Aunt Breast cancer Family/Other Mental health disorder Substance use disorder Social History (Updated 02/20/25 @ 15:43 by YOANA Julian) Housing: Apartment Alcohol intake: never Patient Tobacco Use Status: Never used Tobacco e-Cigarette/Vaping Use: Never Used Second Hand Smoke Exposure: No Substance Use Type: Marijuana Substance Use Frequency: Daily service: No Current occupational status: employed Current occupational exposures/hazards: No Cognitive needs: No Hearing needs: No Vision needs: No Female Reproductive History Menstrual Age of Menarche: 10 Questionnaire Thrive Questionnaire Date Thrive assessed: 12/07/24 MABLE-7 AMB Questionnaire MABLE-7 Date MABLE - 7 assessed: 12/07/24 Source: Developed by Drs. Star Ballard, Tricia Perkins, Mirza Merino and colleagues, with an educational mone from [employer] Review of Systems Const Details: Occasional cold sweats associated with anxiety Denies body aches, Denies chills and Denies fever(s) ENT Reports no additional complaints Card Denies chest pain, Denies syncope, Denies lightheadedness and Denies dyspnea Resp Denies cough and Denies dyspnea GI Denies abdominal pain, Denies constipation, Denies diarrhea, Reports nausea and Denies vomiting Reports no additional complaints Skin/Breast Reports system reviewed and no additional complaints, except as documented Neuro Denies syncope Physical exam (Primary Care) Vital Signs: Vital signs physical exam not performed today due to nature of telehealth visit Tobacco/Smoking Status: Tobacco use Status Tobacco use date assessed 12/07/24 02/20/25 15:44 Patient Tobacco Use Status Never used Tobacco 02/20/25 15:44 e-Cigarette/Vaping Use Never Used 02/20/25 15:44 Thrive Assessment: Date of Thrive Assessment Date Thrive assessed 12/07/24 02/20/25 15:44 Telehealth Telehealth Telehealth Platform: Telephone Location of provider rendering services: practice address Location of patient: address on file Patient Identification confirmed using: Name, : Yes Telehealth method: voice only Patient verbally consented to treatment: Yes Patient verbally consented to billing insurance company: Yes Patient informed of any privacy concerns related to visit: Yes Coding Level of Care Code Tele Est Pt Level 3 (58836) Diagnoses Major depressive disorder, recurrent episode with anxious distress F33.9 KOKO positive R76.8 Panic attacks F41.0 Assessment & Plan Assessment & Plan (1) Major depressive disorder, recurrent episode with anxious distress: Code(s): F33.9 - Major depressive disorder, recurrent, unspecified Category: Medical Plan: Patient is no longer taking the fluoxetine and was instructed to start Lamictal by the outpatient psych clinic and has not yet started this medication due to co-pay issues. Advised to follow up with outpatient psych clinic. (2) KOKO positive: Code(s): R76.8 - Other specified abnormal immunological findings in serum Category: Medical Plan: Patient has rheumatology appointment in March. (3) Panic attacks: Code(s): F41.0 - Panic disorder [episodic paroxysmal anxiety] Category: Medical Plan: Continue to follow with outpatient psych clinic and use hydroxyzine as needed. Plan This note was constructed using voice recognition software. While every effort has been made to ensure accuracy and superintendent landfill operations, still areas may have been included sometimes these areas may affect the content or meeting of the given symptoms. Total time spent caring for the patient today was 20 minutes. This includes time spent before the visit reviewing the chart, time spent during the visit, and time spent after the visit and documentation. Medications: Discontinued fluoxetine (Prozac) Discontinued Reason: Patient no longer taking 10 mg PO DAILY 90 caps 0RF
--- OUTSIDE RECORDS SUMMARY | 2025-02-20 18:46 | XMS_ITS | Clinical Summary ---
Author Organization [facility] 's Address [address] [place] [address] Care Team Providers Care Sociology Research Assistant Name Role Phone Bee Perkins Primary Care [...] so, obtain the minor's consent prior to disclosure.[facility] Allergies Active Allergy Reactions Criticality Noted Date Comments Birch [place] 12/06/2019 Dog Dander 12/06/2019 Feathers 12/06/2019 Medications [...] patient's age to complete this topic Insurance [facility] [employer] Care Teams Sociology Research Assistant Relationship Specialty Start Date End Date Bee Perkins PA [address] [place] [address] [place] [address] PCP - General Physician Food Processing Plant Manager 08/23/19
== END 2025-02-20 16:38 | disposition home or self-care (01) ==
LOC: HO.HMCH 15:41
DX: R76.8 Other specified abnormal immunological findings in serum (principal); F33.9 Major depressive disorder, recurrent, unspecified; F41.0 Panic disorder [episodic paroxysmal anxiety]

== ENCOUNTER → 2025-02-20 15:41 | Outpatient (BNVA) | payer OTHER, SELFPAY | DX: Z13.89 Encounter for screening for other disorder (principal) ==

== ENCOUNTER 2025-03-02 11:42 | Emergency (ER) | payer OTHER, SELFPAY ==
--- NOTE | ~2025-03-02 | XR_ITS ---
EXAMINATION: XR FOOT 3 OR MORE VIEWS LEFT, XR ANKLE 3 OR MORE VIEWS LEFT HISTORY: rolled ankle lateral foot pain/bump COMPARISON: There are no prior studies available for comparison. FINDINGS: Six views of the left foot and ankle are submitted. Osseous mineralization is normal. There is no fracture or dislocation. The joint spaces are preserved. The soft tissues are unremarkable. XR/XR foot LT min 3V IMPRESSION: Unremarkable examination of the left foot and ankle. Electronically signed by: Star Berumen MD 03/02/2025 12:42 PM EDT
--- NOTE | ~2025-03-02 | XR_ITS ---
EXAMINATION: XR FOOT 3 OR MORE VIEWS LEFT, XR ANKLE 3 OR MORE VIEWS LEFT HISTORY: rolled ankle lateral foot pain/bump COMPARISON: There are no prior studies available for comparison. FINDINGS: Six views of the left foot and ankle are submitted. Osseous mineralization is normal. There is no fracture or dislocation. The joint spaces are preserved. The soft tissues are unremarkable. XR/XR ankle LT min 3V IMPRESSION: Unremarkable examination of the left foot and ankle. Electronically signed by: Star Berumen MD 03/02/2025 12:42 PM EDT
[2025-03-02 12:03] VITALS: BP 117/76; PULSE 83; RESP 18; TEMP 36.8; O2SAT 98; BMI 21.6
--- NOTE | 2025-03-02 12:07 | ED_ITS ---
HPI - Extremity Injury (Lower) General Chief Complaint: Extremity Injury, Lower Stated Complaint: L Ankle- Swelling Time Seen by Provider: 03/02/25 12:56 Source: patient Mode of arrival: ambulatory Limitations: no limitations History of Present Illness ED Provider: CYNTHIA SIM PA-C HPI Narrative: 19 year old female with pmhx significant for GERD, asthma, anxiety, depression presents to the ED today for evaluation of swelling to lateral aspect of her left foot x8 days. Reports rolling her left ankle during a soccer game 8 days ago. Since this time has noted a small area of swelling to the lateral aspect of her left foot. No other injury or trauma to the foot. She reports pain with turning the ankle however has been able to ambulate without difficulty. Applying arnica gel to the area with improvement in discomfort however the swelling has not gone down. She has not trialed any Tylenol or Motrin. Denies any numbness/weakness/tingling of the left lower extremity. Denies any other concerns. Related Data Previous Rx's ?Medication ?Instructions ?Recorded loratadine 10 mg tablet 10 mg PO DAILY #90 tabs 01/12/22 ibuprofen 600 mg tablet 600 mg PO Q6H PRN fever or pain 04/20/23 #30 tabs albuterol sulfate 90 mcg/actuation 1 inh inhalation QID PRN shortness 09/02/23 aerosol inhaler of breath or wheezing #6.7 grams triamcinolone acetonide 0.025 % 1 appl topical BID #15 grams 05/10/24 topical cream budesonide 90 mcg/actuation breath 1 inh inhalation BID #1 ea 07/07/24 activated powder inhaler (Pulmicort Flexhaler) hydroxyzine HCl 10 mg tablet 10 mg PO TID PRN anxiety #30 tabs 10/19/24 promethazine 25 mg tablet 25 mg PO Q6H PRN nausea and 11/15/24 vomiting #20 tabs ondansetron 4 mg disintegrating 4 mg PO Q8H PRN nausea and 12/04/24 tablet vomiting #10 tabs omeprazole 20 mg capsule,delayed 20 mg PO DAILY #90 caps 12/07/24 release lamotrigine 25 mg tablet (Lamictal) 12.5 mg (1/2 x 25 mg) PO BID 30 02/06/25 days #30 tabs Allergies Allergy/AdvReac Type Severity Reaction Status Date / Time dog dander Allergy Mild Sneezing Verified 03/02/25 12:07 pollen Allergy Unknown Unknown Uncoded 03/02/25 12:07 Soap Allergy Unknown Unknown Uncoded 03/02/25 12:07 Review of Systems Review of Systems: Yes all other systems are reviewed and are negative [facility] Past Medical History Attestation statement: The following information was validated with the patient. Source: old records reviewed and nursing notes reviewed Medical History Hypotension Asthma Surgical History No pertinent past surgical history Family History Family History Father HTN (hypertension) Diabetes Mother Rheumatoid arthritis HTN (hypertension) Lupus Maternal Aunt Breast cancer Family/Other Mental health disorder Substance use disorder Social History Social History Housing: Apartment Alcohol intake: never Patient Tobacco Use Status: Never used Tobacco e-Cigarette/Vaping Use: Never Used Second Hand Smoke Exposure: No Substance Use Type: Marijuana Advance Directives: No Advance Directives Information Provided: Yes service: No Current occupational status: employed Current occupational exposures/hazards: No Cognitive needs: No Hearing needs: No Vision needs: No Physical Exam Vital Signs: Vital Signs: Last Vital Signs Temp 98.2 F 03/02/25 12:03 Pulse 83 03/02/25 12:03 Resp 18 03/02/25 12:03 BP 117/76 03/02/25 12:03 Pulse Ox 98 03/02/25 12:03 O2 Del Method Room Air 03/02/25 12:03 BMI result Body Mass Index 21.6 Vital signs stable General: Well appearing, in no acute distress. Skin: Warm, dry, intact. No rashes or lesions. Head: Normocephalic, atraumatic. EENT: Hearing is intact b/l. Conjunctiva clear. EOM intact. Moist mucous membranes.? Cardiac: Chest wall symmetric. RRR Lungs: Normal respiratory effort without accessory muscle use Ext: +small area of swelling noted to lateral aspect of left foot. No overlying erythema, ecchymosis or deformity. No warmth. Slightly tender to palpation. Full ROM intact to left ankle with minimal discomfort on inversion eversion. No noted swelling to ankle itself. No deformity. Ambulating with steady gait. 2+ PT pulse intact. Neuro: AOx3. Normal speech. Psych: Appropriate mood and affect. Responds appropriately to questions. Course Course Course Narrative: This is a Rapid Medical Examination (RME) performed by Doroteo Sim PA-C in triage. Full HPI, ROS, assessment and treatment plan per primary provider in the Main ED. 03/02/25 1207 DANDY Espinosa Hx: 19 yo female here for eval of lateral left foot/ankle pain s/p rolling her ankle during a soccer game x8 days ago. PE/vitals: +small area of swelling noted to lateral aspect of left foot. ttp, no deformity. Ambulating with steady gait. Pain on range of motion of ankle. 2+pt pulse. Plan: xrs Reevaluation(s) Reevaluation #1: 1300 -- X-ray left foot/ankle unremarkable. No noted fracture. lisandro wrap applied. nv intact distally. ambulating w/ steady gait. advised RICE therapy. Patient has remained stable throughout ED visit today. Discussed worrisome signs and symptoms and when to return to the ED. All questions answered at this time. Patient is agreeable with disposition and stable for discharge. Medical Decision Making Medical Decision Making [facility] Narrative: 19 year old female with pmhx significant for GERD, asthma, anxiety, depression presents to the ED today for evaluation of swelling to lateral aspect of her left foot x8 days. Vital signs stable. She is nontoxic appearing in no acute distress. on exam of LLE, small area of swelling noted to lateral aspect of left foot. No overlying erythema, ecchymosis or deformity. No warmth. Slightly tender to palpation. Full ROM intact to left ankle with minimal discomfort on inversion eversion. No noted swelling to ankle itself. No deformity. Ambulating with steady gait. 2+ PT pulse intact. Differential diagnosis includes contusion, MSK sprain/strain, fracture, dislocation. Presentation not consistent with septic joint, Lyme arthritis, gout, pseudogout. Unlikely neurovascular compromise, threat to limb, compartment syndrome, DVT. Plan for x-rays, re-evaluation. Differential Diagnosis Differential Diagnoses: The differential diagnosis associated with the presentation includes as above. Admission/Observation not indicated. Independent Interpretation I performed an independent interpretation of an: Plain X-Ray Interpretation: xr left foot/ankle without fracture Radiology Impression Discussion of test interpretation with radiology: I have reviewed the radiologist's reading. Radiologist Impression: Procedure(s): XR ankle LT min 3V Accession Number(s): [id number] cc: Keila Dorsey PA-C; Cynthia Sim~ EXAMINATION: XR FOOT 3 OR MORE VIEWS LEFT, XR ANKLE 3 OR MORE VIEWS LEFT HISTORY: rolled ankle lateral foot pain/bump COMPARISON: There are no prior studies available for comparison. FINDINGS: Six views of the left foot and ankle are submitted. Osseous mineralization is normal. There is no fracture or dislocation. The joint spaces are preserved. The soft tissues are unremarkable. XR/XR ankle LT min 3V IMPRESSION: Unremarkable examination of the left foot and ankle. Procedure(s): XR foot LT min 3V Accession Number(s): [id number] cc: Keila Dorsey PA-C; Cynthia Sim~ EXAMINATION: XR FOOT 3 OR MORE VIEWS LEFT, XR ANKLE 3 OR MORE VIEWS LEFT HISTORY: rolled ankle lateral foot pain/bump COMPARISON: There are no prior studies available for comparison. FINDINGS: Six views of the left foot and ankle are submitted. Osseous mineralization is normal. There is no fracture or dislocation. The joint spaces are preserved. The soft tissues are unremarkable. XR/XR foot LT min 3V IMPRESSION: Unremarkable examination of the left foot and ankle. External Record Review External record reviewed: Inpatient record Prescription Management I considered prescription management with: Pain Medication Social Determinants Patient?s care significantly limited by Social Determinants of Health including: Other Social Determinant of Health Procedures Orthopedic Splinting/Casting Injury #1: Side: left Lower Extremity Injury Location: ankle and foot Lower Extremity Immobilizer: Lisandro wrap Critical Care Time Critical Care Time Critical Care Time: No Discharge Plan Discharge Clinical Impression: Left ankle sprain Patient Disposition: Home, Self-Care Instructions: Sprain (ED), R.I.C.E. Treatment (ED) Additional Instructions: You have been evaluated in the Emergency Department today for ankle pain. Your evaluation did not show any fracture of your ankle/foot. I have placed your ankle in an lisandro wrap for comfort. Please rest, ice, and elevate your ankle. I recommend you take 600mg ibuprofen every 6 hours or tylenol 650mg every 6 hours as needed for pain. If needed, you can alternate these medications so that you take one medication every 3 hours. For example, at noon take ibuprofen, then at 3pm take tylenol, then at 6pm take ibuprofen.? Please follow-up with your PCP Return to the Emergency Department if you experience worsening pain, numbness, tingling, change of color in your toes, or any other concerning symptoms. Prescriptions: No Action loratadine 10 mg tablet 10 mg PO DAILY Qty: 90 2RF Rx Instructions: Take 1 tablet by mouth daily albuterol sulfate 90 mcg/actuation HFA aerosol inhaler 1 inh inhalation QID PRN (Reason: shortness of breath or wheezing) Qty: 6.7 3RF Pulmicort Flexhaler 90 mcg/actuation aerosol powdr breath activated 1 inh inhalation BID Qty: 1 2RF promethazine 25 mg tablet 25 mg PO Q6H PRN (Reason: nausea and vomiting) Qty: 20 0RF ibuprofen 600 mg tablet 600 mg PO Q6H PRN (Reason: fever or pain) Qty: 30 0RF ondansetron 4 mg tablet,disintegrating 4 mg PO Q8H PRN (Reason: nausea and vomiting) Qty: 10 0RF triamcinolone acetonide 0.025 % cream 1 appl topical BID Qty: 15 0RF lamotrigine [Lamictal] 25 mg tablet 12.5 mg PO BID 30 Days Qty: 30 0RF hydroxyzine HCl 10 mg tablet 10 mg PO TID PRN (Reason: anxiety) Qty: 30 0RF omeprazole 20 mg capsule,delayed release(DR/EC) 20 mg PO DAILY Qty: 90 0RF Stand Alone Forms: Work/School Release Discharge Date/Time: 03/02/25 13:08 Print Language: Frisian
[2025-03-02 13:06] VITALS: BP 117/76; PULSE 83; RESP 18; TEMP 36.8; O2SAT 98
== END 2025-03-02 13:08 | disposition home or self-care (01) ==
PROVIDERS: Emergency Provider Emergency Medicine
DX: S93.402A Sprain of unspecified ligament of left ankle, initial encounter (principal); X50.1XXA Overexertion from prolonged static or awkward postures, initial encounter; Y93.66 Activity, soccer; Y92.322 Soccer field as the place of occurrence of the external cause; Y99.9 Unspecified external cause status
CPT/HCPCS: 73610; 73630; 99282; 99283

== ENCOUNTER → 2025-03-02 12:05 | Outpatient (BNV) | payer OTHER, SELFPAY | PROVIDERS: Visit Provider Radiology Diagnostic Radiology | DX: M25.572 Pain in left ankle and joints of left foot (principal) | CPT/HCPCS: 73610; 73630 ==

== ENCOUNTER 2025-03-06 13:59 | Outpatient (AMB) | payer OTHER, SELFPAY ==
--- NOTE | 2025-03-06 14:03 | A.OFFPSYCH_ITS ---
Intake Intake Visit Reasons: follow up Data Capture Clerk Required: No Allergies dog dander Allergy (Mild, Verified 03/22/25 09:18) Sneezing pollen Allergy (Unknown, Uncoded 03/02/25 12:07) Unknown Soap Allergy (Unknown, Uncoded 03/02/25 12:07) Unknown Medication List - Last Reconciled 03/06/25 by Margret Suero, DREA albuterol sulfate 90 mcg/actuation 1 inh inhalation QID PRN budesonide 90 mcg/actuation (Pulmicort Flexhaler) 1 inh inhalation BID hydroxyzine HCl 10 mg PO TID PRN ibuprofen 600 mg PO Q6H PRN lamotrigine (Lamictal) 12.5 mg (1/2 x 25 mg) PO BID 30 days loratadine 10 mg PO DAILY omeprazole 20 mg PO DAILY ondansetron 4 mg PO Q8H PRN promethazine 25 mg PO Q6H PRN triamcinolone acetonide 0.025% 1 appl topical BID HPI- Psychiatric Chief Complaint: follow up HPI Narrative: pt here for follow up for depression and anxiety she has not been able to start the prozac or lamictal due to no money for copays she is struggling with depression, anxiety, nightmares, panic,trouble falling asleep. PHQ9=17 and GAD7=15 she has passive SI but no plan and no intent. Past Psychiatric History: tried to overdose age 14 has been hospital ER for panic attacks, No IPLOC. tried outpt therapy in past - didn't like at age 14. has tried hydroxyzine, amitriptyline, buspar and sertraline in past Subjective Subjective Subjective Medication Compliance: Yes Side effects from medications: No Review of Systems Medical Review of Systems: unchanged Mental Status Exam Mental Status Exam Patient Appearance: Appropriate Patient Orientation: Person, Place, Time and Situation Level of Consciousness: Awake Patient Behavior: Appropriate Mood Description: Depressed and Anxious Affect Description: Depressed and Anxious Patient Cognition Impaired: No Ability to Follow Directions: Good Memory Description: Intact Hallucinations: None Delusions: Not Present Thought Process: Intact Thought Content: positive for Intact Judgement: Fair Assessment and Plan Assessment & Plan (1) Major depressive disorder, recurrent episode with anxious distress: Status: Acute Code(s): F33.9 - Major depressive disorder, recurrent, unspecified (2) Generalized anxiety disorder: Status: Acute Code(s): F41.1 - Generalized anxiety disorder (3) Panic attacks: Status: Acute Code(s): F41.0 - Panic disorder [episodic paroxysmal anxiety] Medications: New paroxetine HCl 20 mg PO DAILY 30 tabs 0RF Discontinued lamotrigine Discontinued Reason: Doctor's Order 12.5 mg (1/2 x 25 mg) PO BID 30 days 30 tabs 0RF Counseling and coordination of Care Medication management counseling: Effectiveness, Side effects, Dosing range, Duration, Drug interaction and Adherence Diagnosis and Prognosis Counseling: Accuracy of diagnosis, Prognosis over time, Impact of diagnosis on life functions and Adequacy of current interventions Details: I spent 40 minutes reviewing the record, seeing the patient and documenting in the medical record. Counseling provided to the patient/caregiver as outlined below. Addressed patient/caregiver concerns regarding current medication regime including effective adherence. Addressed patient/caregiver concerns regarding diagnosis and prognosis including accuracy of diagnosis, prognosis over time, impact of diagnosis. Addressed patient/caregiver concerns regarding impact of recent stressors. PFSH Medical History Hypotension Asthma Surgical History No pertinent past surgical history Family History Father HTN (hypertension) Diabetes Mother Rheumatoid arthritis HTN (hypertension) Lupus Maternal Aunt Breast cancer Family/Other Mental health disorder Substance use disorder Social History Housing: Apartment Alcohol intake: never Patient Tobacco Use Status: Never used Tobacco e-Cigarette/Vaping Use: Never Used Second Hand Smoke Exposure: No Substance Use Type: Marijuana service: No Current occupational status: employed Current occupational exposures/hazards: No Cognitive needs: No Hearing needs: No Vision needs: No Social History: lives with her mother and 21 yo brother; 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
--- OUTSIDE RECORDS SUMMARY | 2025-03-06 16:07 | XMS_ITS | Clinical Summary ---
Author Organization [facility] 's Address [address] [place] [address] Care Team Providers Care Inbound Sales Representative Name Role Phone Bee Perkins Primary [...] so, obtain the minor's consent prior to disclosure.[facility] Allergies Active Allergy Reactions Criticality Noted Date Comments Birch [place] 12/06/2019 Dog Dander 12/06/2019 Feathers 12/06/2019 Medications [...] patient's age to complete this topic Insurance [facility] Care Teams Inbound Sales Representative Relationship Specialty Start Date End Date Bee Perkins PA [address] [place] [address] [place] [id number] PCP - General Physician Offset Plate Preparation Supervisor 08/23/19
== END 2025-03-06 14:23 | disposition home or self-care (01) ==
LOC: HO.HOP 13:59
PROVIDERS: Visit Provider Clinical Nurse Specialist Psychiatric/Mental Health
DX: F33.9 Major depressive disorder, recurrent, unspecified (principal); F41.1 Generalized anxiety disorder; F41.0 Panic disorder [episodic paroxysmal anxiety]
CPT/HCPCS: 99214

== ENCOUNTER → 2025-03-06 13:59 | Outpatient (BNVA) | payer OTHER, SELFPAY | PROVIDERS: Visit Provider Clinical Nurse Specialist Psychiatric/Mental Health ==

== ENCOUNTER 2025-03-08 07:53 | Emergency (ER) | payer OTHER, SELFPAY ==
[2025-03-08 07:58] VITALS: BP 109/75; PULSE 78; RESP 16; TEMP 36.2; O2SAT 98; BMI 24.0
[2025-03-08 08:47] LABS: IDNOW Serial# 55D5AD1C; Strep A Nucleic Acid Negative (Negative)
--- OUTSIDE RECORDS SUMMARY | 2025-03-08 08:52 | XMS_ITS | Clinical Summary ---
Author Organization [facility] 's Address [address] [place] [address] Care Team Providers Care Control Inspector Name Role Phone Bee Perkins Primary Care Provider [phone] Source Comments Please note that some or [...] so, obtain the minor's consent prior to disclosure.[facility] Allergies Active Allergy Reactions Criticality Noted Date Comments Birch [place] 12/06/2019 Dog Dander 12/06/2019 Feathers 12/06/2019 Medications [...] patient's age to complete this topic Insurance [facility] [employer] Care Teams Control Inspector Relationship Specialty Start Date End Date Bee Perkins PA [address] [place] [address] [place] [id number] PCP - General Physician Template Layout Worker 08/23/19
--- NOTE | 2025-03-08 09:03 | ED_ITS ---
HPI - General Adult General Chief complaint: Eye Problems Stated complaint: pink eye Time Seen by Provider: 03/08/25 08:37 Source: patient Mode of arrival: ambulatory Limitations: no limitations History of Present Illness HPI narrative: This is a 19-year-old WD/depression who presents for evaluation of left eye /erythema/discharge. She states 1 day of symptoms. She states associated congestion and rhinorrhea. She states sore throat as well. She states no odynophagia. She states no otalgia. She states no fever, chest pain or dyspnea. She states dry cough. She states headache. She states no myalgias or arthralg ias. She states no GI or symptoms. She states no known drug allergies. Related Data Previous Rx's ?Medication ?Instructions ?Recorded loratadine 10 mg tablet 10 mg PO DAILY #90 tabs 01/12/22 ibuprofen 600 mg tablet 600 mg PO Q6H PRN fever or pain 04/20/23 #30 tabs albuterol sulfate 90 mcg/actuation 1 inh inhalation QID PRN shortness 09/02/23 aerosol inhaler of breath or wheezing #6.7 grams triamcinolone acetonide 0.025 % 1 appl topical BID #15 grams 05/10/24 topical cream budesonide 90 mcg/actuation breath 1 inh inhalation BID #1 ea 07/07/24 activated powder inhaler (Pulmicort Flexhaler) hydroxyzine HCl 10 mg tablet 10 mg PO TID PRN anxiety #30 tabs 10/19/24 promethazine 25 mg tablet 25 mg PO Q6H PRN nausea and 11/15/24 vomiting #20 tabs ondansetron 4 mg disintegrating 4 mg PO Q8H PRN nausea and 12/04/24 tablet vomiting #10 tabs omeprazole 20 mg capsule,delayed 20 mg PO DAILY #90 caps 12/07/24 release paroxetine HCl 20 mg tablet 20 mg PO DAILY #30 tabs 03/06/25 erythromycin 5 mg/gram (0.5 %) eye 1 appl ophthalmic-Left QID 7 days 03/08/25 ointment #3.5 grams Allergies Allergy/AdvReac Type Severity Reaction Status Date / Time dog dander Allergy Mild Sneezing Verified 03/08/25 07:59 pollen Allergy Unknown Unknown Uncoded 03/02/25 12:07 Soap Allergy Unknown Unknown Uncoded 03/02/25 12:07 Review of Systems Review of Systems: ROS as per HPI [facility] Past Medical History Medical History Hypotension Asthma Surgical History No pertinent past surgical history Family History Family History Father HTN (hypertension) Diabetes Mother Rheumatoid arthritis HTN (hypertension) Lupus Maternal Aunt Breast cancer Family/Other Mental health disorder Substance use disorder Social History Social History Housing: Apartment Alcohol intake: never Patient Tobacco Use Status: Never used Tobacco e-Cigarette/Vaping Use: Never Used Second Hand Smoke Exposure: No Substance Use Type: Marijuana Advance Directives: No Advance Directives Information Provided: Yes Do you have a plan to hurt others: No Plan service: No Current occupational status: employed Current occupational exposures/hazards: No Cognitive needs: No Hearing needs: No Vision needs: No Physical Exam ED Vital Signs: Vital Signs - 24 hr 03/08/25 07:58 Temperature 97.2 F Pulse Rate 78 Respiratory Rate 16 Blood Pressure 109/75 Pulse Oximetry 98 Oxygen Delivery Method Room Air BMI result Body Mass Index 24.0 Gen: NAD, AOx3 HEENT: NCAT, EOMI without pain, left conjunctival injection with minimal superior left eyelid edema and no periorbital erythema, scant left ocular discharge, uvula midline without edema, no posterior oropharynx erythema/exudates, no palatal asymmetry CV: RRR Pulm: CTAB, no increased work of breathing GI: Soft, NTND, no rebound, guarding or rigidity Neuro: Grossly non focal Medical Decision Making Medical Decision Making MDM Narrative: Differential diagnosis includes, but is not limited to pharyngitis, conjunctivitis, viral URI. Patient is afebrile and hemodynamically stable on room air. Exam is benign and reassuring. On re-examination, patient is well-appearing and in no acute distress. ?There is no indication for further emergent evaluation in this otherwise well-appearing patient as above. ?Patient is provided written and verbal instructions, educatio nal materials, prescription for erythromycin ophthalmic ointment, recommendations for outpatient follow-up, strict return precautions and teach back is performed. ?Patient states understanding and agreement with plan of care. ?Patient is discharged home in stable and improved condition. Admission/Observation Consideration of admission/observation: Escalation of care including admission/observation considered Lab Data MDM Lab Attestation statement: I reviewed the patient's lab results. Strep test negative. Labs: Lab Results 03/08/25 Range/Units 08:21 S. pyogenes GrpA MARIBEL Negative (Negative) Discharge Plan Discharge Clinical Impression: Conjunctivitis Patient Disposition: Home, Self-Care Instructions: Conjunctivitis (ED) Additional Instructions: You were evaluated in the emergency room. You were found to have conjunctivitis of your left eye. You tested negative for strep throat. You are given an antibiotic ointment for your eye. Please use as directed (four times per day, for a total of 7 days). Please follow up with your regular doctor in 1-2 weeks. Return to the emergency room with any new symptoms or concerns. Prescriptions: New erythromycin 5 mg/gram (0.5 %) ointment 1 appl ophthalmic-Left QID 7 Days Qty: 3.5 0RF No Action loratadine 10 mg tablet 10 mg PO DAILY Qty: 90 2RF Rx Instructions: Take 1 tablet by mouth daily albuterol sulfate 90 mcg/actuation HFA aerosol inhaler 1 inh inhalation QID PRN (Reason: shortness of breath or wheezing) Qty: 6.7 3RF Pulmicort Flexhaler 90 mcg/actuation aerosol powdr breath activated 1 inh inhalation BID Qty: 1 2RF promethazine 25 mg tablet 25 mg PO Q6H PRN (Reason: nausea and vomiting) Qty: 20 0RF ibuprofen 600 mg tablet 600 mg PO Q6H PRN (Reason: fever or pain) Qty: 30 0RF ondansetron 4 mg tablet,disintegrating 4 mg PO Q8H PRN (Reason: nausea and vomiting) Qty: 10 0RF triamcinolone acetonide 0.025 % cream 1 appl topical BID Qty: 15 0RF paroxetine HCl 20 mg tablet 20 mg PO DAILY Qty: 30 0RF hydroxyzine HCl 10 mg tablet 10 mg PO TID PRN (Reason: anxiety) Qty: 30 0RF omeprazole 20 mg capsule,delayed release(DR/EC) 20 mg PO DAILY Qty: 90 0RF Referrals: [facility] [place] Primary CareBecky [Provider Group] Stand Alone Forms: Work/School Release Print Language: Telugu
[2025-03-08 09:13] VITALS: BP 109/75; PULSE 78; RESP 16; TEMP 36.2; O2SAT 98
[2025-03-08 09:16] LABS: Influenza A PCR NEGATIVE (Negative); Influenza B PCR NEGATIVE (Negative); Resp Syncy Virus RNA Qual PCR POSITIVE (Negative); SARS COV2 PCR INHOUSE NEGATIVE (Negative)
== END 2025-03-08 09:17 | disposition home or self-care (01) ==
PROVIDERS: Emergency Provider Emergency Medicine
DX: H10.9 Unspecified conjunctivitis (principal); H10.022 Other mucopurulent conjunctivitis, left eye; J34.89 Other specified disorders of nose and nasal sinuses; R09.81 Nasal congestion; R05.9 Cough, unspecified; R51.9 Headache, unspecified; Z03.818 Encounter for observation for suspected exposure to other biological agents ruled out
CPT/HCPCS: 0241U; 87651; 99282; 99283

== ENCOUNTER 2025-03-16 19:04 | Emergency (ER) | payer OTHER, SELFPAY ==
--- NOTE | 2025-03-16 19:25 | ED_ITS ---
HPI - URI/Sore Throat General Chief Complaint: Upper Respiratory Symptoms Stated Complaint: ?strep throat Time Seen by Provider: 03/16/25 21:42 Source: patient and old records reviewed Mode of arrival: ambulatory Limitations: no limitations History of Present Illness ED Provider: DALTON BAIRD Narrative: 19 yo female with PMH of pharyngitis here with URI symptoms and sore throat, feels like she has bad breath - symptoms started today. No measured fever, no cough, no sexual partners. No rash. MD elicited complaint: sore throat Onset (ago): day(s) Consistency: intermittent Severity: mild Able to tolerate fluids by mouth: Yes Exacerbating factors: swallowing Relieving factors: nothing Associated symptoms: chills and sore throat Treatments prior to arrival: none Related Data Previous Rx's ?Medication ?Instructions ?Recorded loratadine 10 mg tablet 10 mg PO DAILY #90 tabs 01/12/22 ibuprofen 600 mg tablet 600 mg PO Q6H PRN fever or pain 04/20/23 #30 tabs albuterol sulfate 90 mcg/actuation 1 inh inhalation QID PRN shortness 09/02/23 aerosol inhaler of breath or wheezing #6.7 grams triamcinolone acetonide 0.025 % 1 appl topical BID #15 grams 05/10/24 topical cream budesonide 90 mcg/actuation breath 1 inh inhalation BID #1 ea 07/07/24 activated powder inhaler (Pulmicort Flexhaler) hydroxyzine HCl 10 mg tablet 10 mg PO TID PRN anxiety #30 tabs 10/19/24 promethazine 25 mg tablet 25 mg PO Q6H PRN nausea and 11/15/24 vomiting #20 tabs ondansetron 4 mg disintegrating 4 mg PO Q8H PRN nausea and 12/04/24 tablet vomiting #10 tabs omeprazole 20 mg capsule,delayed 20 mg PO DAILY #90 caps 12/07/24 release paroxetine HCl 20 mg tablet 20 mg PO DAILY #30 tabs 03/06/25 erythromycin 5 mg/gram (0.5 %) eye 1 appl ophthalmic-Left QID 7 days 03/08/25 ointment #3.5 grams Allergies Allergy/AdvReac Type Severity Reaction Status Date / Time dog dander Allergy Mild Sneezing Verified 03/16/25 19:28 pollen Allergy Unknown Unknown Uncoded 03/02/25 12:07 Soap Allergy Unknown Unknown Uncoded 03/02/25 12:07 Review of Systems Review of Systems: Constitutional : No Fever, pos Chills, No Fatigue ENT/Mouth : pos sore throat, No Rhinorrhea Eyes: No Eye Pain, No Swelling, No Redness Cardiovascular : No Chest Pain, No SOB, No Dyspnea on Exertion Respiratory : No Cough, No Sputum Gastrointestinal : No Nausea, No Vomiting, No Diarrhea, No abdominal Pain Genitourinary : No Dysuria, No Urinary Frequency, No Hematuria, Musculoskeletal : No joint pain, No Myalgias, No Joint Swelling Skin : No Skin Lesions, No rash All other systems reviewed and are negative PMFSH Past Medical History Attestation statement: The following information was validated with the patient. Source: old records reviewed Medical History Hypotension Asthma Surgical History No pertinent past surgical history Family History Family History Father HTN (hypertension) Diabetes Mother Rheumatoid arthritis HTN (hypertension) Lupus Maternal Aunt Breast cancer Family/Other Mental health disorder Substance use disorder Social History Social History Housing: Apartment Alcohol intake: never Patient Tobacco Use Status: Never used Tobacco e-Cigarette/Vaping Use: Never Used Second Hand Smoke Exposure: No Substance Use Type: Marijuana Advance Directives: No Advance Directives Information Provided: No Do you have a plan to hurt others: No Plan service: No Current occupational status: employed Current occupational exposures/hazards: No Cognitive needs: No Hearing needs: No Vision needs: No Physical Exam Vital Signs: Vital Signs: Last Vital Signs Temp 98.2 F 03/16/25 22:08 Pulse 62 03/16/25 22:08 Resp 18 03/16/25 22:08 BP 128/70 03/16/25 22:08 Pulse Ox 99 03/16/25 22:08 O2 Del Method Room Air 03/16/25 22:08 BMI result Body Mass Index 22.7 Appearance: Alert. Oriented X3. No acute distress. Eyes: Pupils equal, round and reactive to light. ENT: Pharynx uvula is midline, no erythema no exudates, R tonsil has 3 tonsil stones I was able to remove one with a qtip. no lymphadenopathy, no hallitosis Neck: Normal inspection. Neck supple. CVS: Normal heart rate and rhythm. Pulses normal. Respiratory: No respiratory distress. Breath sounds normal. Abdomen: Soft and nontender. Skin: Skin warm and dry. Normal skin color. Normal skin turgor. Extremities: No lower extremity edema. No calf ttp Neuro: Oriented X 3. No motor deficit. No sensory deficit. CN2-12 intact Course Course Course Narrative: This is an RME performed by Eddi Ramos, [employer]HICLE OPERATOR: Additional HPI, ROS, PE not included below will be deferred to primary provider. 19 yo female with no significant PMHx presents to ED due to throat discomfort. Patient states she has headache, nausea, pain with swallowing that started today. She states she thinks this might be strep throat. Denies sick contacts, states she feels hot . Denies ear pain, vomiting, PE: 1+ tonsillar hypertrophy bilaterally with white exudates. Uvula is midline. No trismus. No drooling. Plan: viral swabs, Group a strep Medical Decision Making Medical Decision Making [facility] Narrative: 19 yo female with sore throat but on exam white patches are actually tonsil stones on the R - no swelling, uvula is midline no signs of deeper space infection. I was able to remove a stone with q tip at this time labs normal will DC home with supportive care. She has neg strep would not start on oral abx Differential Diagnosis Differential Diagnoses: The differential diagnosis associated with the pres entation includes strep, mono, pharyngitis, tonsil stone Lab Data [facility] Lab Attestation statement: I reviewed the patient's lab results. Labs: Lab Results 03/16/25 03/16/25 Range/Units 19:39 21:00 Hold Purple Top SEE NOTE Monoscreen Negative (Negative) Influenza Type A (PCR) NEGATIVE (Negative) Influenza Type B (PCR) NEGATIVE (Negative) RSV RNA Qual (PCR) NEGATIVE (Negative) SARS-CoV-2 RNA (RT-PCR) NEGATIVE (Negative) S. pyogenes GrpA MARIBEL Negative (Negative) External Record Review External record reviewed: Outpatient record Prescription Management I considered prescription management with: Antibiotic Discharge Plan Discharge Clinical Impression: Pharyngitis, Calculus of tonsil Patient Disposition: Home, Self-Care Instructions: Pharyngitis (ED) Additional Instructions: at this time strep is negative viral panel is negative mono is negative gargle with warm salt water, take tylenol and motrin for pain can also gargle with listerine do not swallow listerine or salt water return for any worsening symptoms or concerns. Prescriptions: No Action loratadine 10 mg tablet 10 mg PO DAILY Qty: 90 2RF Rx Instructions: Take 1 tablet by mouth daily albuterol sulfate 90 mcg/actuation HFA aerosol inhaler 1 inh inhalation QID PRN (Reason: shortness of breath or wheezing) Qty: 6.7 3RF Pulmicort Flexhaler 90 mcg/actuation aerosol powdr breath activated 1 inh inhalation BID Qty: 1 2RF promethazine 25 mg tablet 25 mg PO Q6H PRN (Reason: nausea and vomiting) Qty: 20 0RF ibuprofen 600 mg tablet 600 mg PO Q6H PRN (Reason: fever or pain) Qty: 30 0RF ondansetron 4 mg tablet,disintegrating 4 mg PO Q8H PRN (Reason: nausea and vomiting) Qty: 10 0RF erythromycin 5 mg/gram (0.5 %) ointment 1 appl ophthalmic-Left QID 7 Days Qty: 3.5 0RF triamcinolone acetonide 0.025 % cream 1 appl topical BID Qty: 15 0RF paroxetine HCl 20 mg tablet 20 mg PO DAILY Qty: 30 0RF hydroxyzine HCl 10 mg tablet 10 mg PO TID PRN (Reason: anxiety) Qty: 30 0RF omeprazole 20 mg capsule,delayed release(DR/EC) 20 mg PO DAILY Qty: 90 0RF Interventions: ED Discharge Assessment Last Done: 03/16/25 22:08 Discharge Date/Time: 03/16/25 22:10 Print Language: Portuguese
[2025-03-16 19:26] VITALS: BP 121/83; PULSE 81; RESP 16; TEMP 37.1; O2SAT 99; BMI 22.7
[2025-03-16 20:05] LABS: IDNOW Serial# 6674DD1D; Strep A Nucleic Acid Negative (Negative)
[2025-03-16 20:36] LABS: Influenza A PCR NEGATIVE (Negative); Influenza B PCR NEGATIVE (Negative); Resp Syncy Virus RNA Qual PCR NEGATIVE (Negative); SARS COV2 PCR INHOUSE NEGATIVE (Negative)
[2025-03-16 21:05] VITALS: BP 128/70; PULSE 62; RESP 18; TEMP 36.8; O2SAT 99
[2025-03-16 21:34] LABS: Monotest Negative (Negative)
[2025-03-16 22:08] VITALS: BP 128/70; PULSE 62; RESP 18; TEMP 36.8; O2SAT 99
== END 2025-03-16 22:10 | disposition home or self-care (01) ==
PROVIDERS: Nurse Practitioner Family; Emergency Provider Emergency Medicine
DX: J02.9 Acute pharyngitis, unspecified (principal); J35.8 Other chronic diseases of tonsils and adenoids; Z03.818 Encounter for observation for suspected exposure to other biological agents ruled out; R51.9 Headache, unspecified; J45.909 Unspecified asthma, uncomplicated
CPT/HCPCS: 0241U; 36415; 86308; 87651; 99283; 99284

== ENCOUNTER 2025-03-22 09:06 | Outpatient (AMB) | payer OTHER, SELFPAY ==
--- NOTE | 2025-03-22 09:13 | A.OFFVIS_ITS ---
Vital Signs 03/22/25 09:17 Height 5 ft 3 in Weight 128 lb BMI 22.7 BP 112/72 Intake Visit Reasons: STD check/infection check? 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 Scheduler: Chief Crew Scheduler Present (Xiomara) Accompanied by: Self / Same As Patient Allergies dog dander Allergy (Mild, Verified 03/22/25 09:18) Sneezing pollen Allergy (Unknown, Uncoded 03/02/25 12:07) Unknown Soap Allergy (Unknown, Uncoded 03/02/25 12:07) Unknown Medication List - Last Reconciled 03/22/25 by Marsha Hatch CNM albuterol sulfate 90 mcg/actuation 1 inh inhalation QID PRN budesonide 90 mcg/actuation (Pulmicort Flexhaler) 1 inh inhalation BID erythromycin 1 appl ophthalmic-Left QID 7 days hydroxyzine HCl 10 mg PO TID PRN ibuprofen 600 mg PO Q6H PRN loratadine 10 mg PO DAILY omeprazole 20 mg PO DAILY ondansetron 4 mg PO Q8H PRN paroxetine HCl 20 mg PO DAILY promethazine 25 mg PO Q6H PRN triamcinolone acetonide 0.025% 1 appl topical BID Is last menstrual period known: Yes Last menstrual period: 02/22/25 Post menopausal: No Patient : No HPI HPI STD check/infection check?: Details: Patient is here for a check on a vaginal discharge that she has noticed for about a week it was Stinky last week and she has been checking on it and taking care of herself and it is a little better but it is still malodorous she does not think that is an STI because she has been using condoms but she is still wants things checked she is worried because she had chlamydia once and it could be similar but she does not know if she is paranoid. [facility] Medical History Hypotension Asthma Surgical History No pertinent past surgical history Family History Father HTN (hypertension) Diabetes Mother Rheumatoid arthritis HTN (hypertension) Lupus Maternal Aunt Breast cancer Family/Other Mental health disorder Substance use disorder Social History (Reviewed 05/15/25 @ 09:13 by IGNACIO Juarez Housing: Apartment Alcohol intake: never Patient Tobacco Use Status: Never used Tobacco e-Cigarette/Vaping Use: Never Used Second Hand Smoke Exposure: No Substance Use Type: Marijuana Patient : No service: No Current occupational status: employed Current occupational exposures/hazards: No Cognitive needs: No Hearing needs: No Vision needs: No Female Reproductive History Menstrual Age of Menarche: 10 Duration of menses: 6-7 days Date of last menstrual period: 02/22/25 control method: none Total pregnancies: 0 Physical Exam Vital Signs: Last Vital Signs BP 112/72 03/22/25 09:17 BMI result Body Mass Index 22.7 Other: Normal external vagina moist cervix nulliparous is a white creamy slightly malodorous discharge testing done for gonorrhea chlamydia trichomoniasis bacterial vaginosis and yeast we will treat as bacterial vaginosis and patient we will be checking portal tomorrow for results.. External Female Exam: normal external appearance and normal appearance of the urethra Speculum Exam - Vagina: normal appearance of the vagina and normal vaginal discharge Speculum Exam - Cervix: normal appearance of the cervix and Cervical os closed Assessment & Plan Assessment & Plan (1) control counseling: Code(s): Z30.09 - Encounter for other general counseling and advice on contraception Category: Medical (2) Vaginal discharge: Code(s): N89.8 - Other specified noninflammatory disorders of vagina Category: Medical (3) Screen for sexually transmitted diseases: Comment: . Code(s): Z11.3 - Encounter for screening for infections with a predominantly sexual mode of transmission Category: Medical (4) Bacterial vaginosis: Code(s): N76.0 - Acute vaginitis; B96.89 - Other specified bacterial agents as the cause of diseases classified elsewhere Category: Medical Plan Full discussion about safer sex and options done as per usual as she and I have discussed all these issues and she is extremely well-versed and self aware and conscious of taking care of herself. I offered her a course of metronidazole tablets which was her preference to use as it does appeared to be a discharge consistent with a least bacterial vaginosis and there is a slightly malodorous character to it. She is worried in case it would be chlamydia again though she has been using condoms. Farhad discussion shared about normal chris and protection from extranious bacteria and she is very aware. She is awaiting a evaluation to see if she might have lupus. She recently was seen in the emergency room for an upper respiratory infection testing showed RSV which I let her know. She said she did not know that and I shared that it is 1 of the very common upper respiratory infections and the treatment is the same as a cold. She declined other blood tests for STIs as not necessary today.. Orders: Orders Bacterial Vaginosis Panel Today B96.89 - Other specified bacterial agents as the cause of diseases classified elsewhere, N76.0 - Acute vaginitis, N89.8 - Other specified noninflammatory disorders of vagina CT NG by PCR Today B96.89 - Other specified bacterial agents as the cause of diseases classified elsewhere, N76.0 - Acute vaginitis, N89.8 - Other specified noninflammatory disorders of vagina Medications: New metronidazole 500 mg PO Q12H 14 tabs 1RF Coding Level of Care Code Est Pt Level 3 (36552) Diagnoses control counseling Z30.09 Vaginal discharge N89.8 Screen for sexually transmitted diseases Z11.3 Bacterial vaginosis N76.0; B96.89
[2025-03-22 09:17] VITALS: BP 112/72; BMI 22.7
== END 2025-03-22 13:18 | disposition home or self-care (01) ==
LOC: HO.HWSM 09:06
PROVIDERS: Visit Provider Advanced Practice Midwife
DX: Z30.09 Encounter for other general counseling and advice on contraception (principal); N76.0 Acute vaginitis; B96.89 Other specified bacterial agents as the cause of diseases classified elsewhere
CPT/HCPCS: 99213

== ENCOUNTER 2025-03-22 09:06 | Outpatient (REF) | payer OTHER, SELFPAY ==
[2025-03-23 09:44] LABS: Bacterial Vaginosis PCR POSITIVE (Negative); Candida Group PCR NOT DETECTED (Not Detect); Candida glab krusei PCR NOT DETECTED (Not Detect); Trichomonas vaginalis PCR NOT DETECTED (Not Detect)
[2025-03-23 10:14] LABS: CT PCR NOT DETECTED (Not Detect.); NG PCR NOT DETECTED (Not Detect.)
== END 2025-03-22 09:07 | disposition home or self-care (01) ==
LOC: HO.LNP 09:06
PROVIDERS: Visit Provider Advanced Practice Midwife
DX: N76.0 Acute vaginitis (principal); B96.89 Other specified bacterial agents as the cause of diseases classified elsewhere
CPT/HCPCS: 81515; 87491; 87591

== ENCOUNTER 2025-04-03 15:10 | Outpatient (AMB) | payer OTHER, SELFPAY ==
--- NOTE | 2025-04-03 15:18 | A.OFFPSYCH_ITS ---
Intake Intake Visit Reasons: f/u consultation [employer] Required: No Allergies dog dander Allergy (Mild, Verified 04/05/25 11:14) Sneezing pollen Allergy (Unknown, Uncoded 03/02/25 12:07) Unknown Soap Allergy (Unknown, Uncoded 03/02/25 12:07) Unknown Medication List - Last Reconciled 04/03/25 by Margret Suero, DREA albuterol sulfate 90 mcg/actuation 1 inh inhalation QID PRN budesonide 90 mcg/actuation (Pulmicort Flexhaler) 1 inh inhalation BID erythromycin 1 appl ophthalmic-Left QID 7 days hydroxyzine HCl 10 mg PO TID PRN ibuprofen 600 mg PO Q6H PRN loratadine 10 mg PO DAILY metronidazole 500 mg PO Q12H omeprazole 20 mg PO DAILY ondansetron 4 mg PO Q8H PRN paroxetine HCl 20 mg PO DAILY promethazine 25 mg PO Q6H PRN triamcinolone acetonide 0.025% 1 appl topical BID HPI- Psychiatric Chief Complaint: f/u consultation HPI Narrative: pt still very anxious. PHQ9=13 and GAD7=12. She is struggling at home and work. she denies SI or HI Past Psychiatric History: tried to overdose age 14 has been hospital ER for panic attacks, No IPLOC. tried outpt therapy in past - didn't like at age 14. has tried hydroxyzine, amitriptyline, buspar and sertraline in past Mental Status Exam Mental Status Exam Patient Appearance: Appropriate Patient Orientation: Person, Place, Time and Situation Level of Consciousness: Awake Patient Behavior: Appropriate Mood Description: Depressed and Anxious Affect Description: Depressed and Anxious Patient Cognition Impaired: No Ability to Follow Directions: Good Memory Description: Intact Hallucinations: None Delusions: Not Present Thought Process: Intact Thought Content: positive for Intact Judgement: Fair Assessment and Plan Assessment & Plan (1) Panic attacks: Status: Acute Code(s): F41.0 - Panic disorder [episodic paroxysmal anxiety] (2) Generalized anxiety disorder: Status: Acute Code(s): F41.1 - Generalized anxiety disorder (3) Major depressive disorder, recurrent episode with anxious distress: Status: Acute Code(s): F33.9 - Major depressive disorder, recurrent, unspecified Medications: Refilled paroxetine HCl 20 mg PO DAILY 30 tabs 0RF Counseling and coordination of Care Pt. Self Management counseling: Maintenance-social rhythm, Nutrition education and improvement and Sleep hygiene Medication management counseling: Effectiveness, Side effects, Dosing range, Duration, Drug interaction and Adherence Diagnosis and Prognosis Counseling: Accuracy of diagnosis, Prognosis over time, Impact of diagnosis on life functions and Adequacy of current interventions Details: I spent [] minutes reviewing the record, seeing the patient and documenting in the medical record. Counseling provided to the patient/caregiver as outlined below. Addressed patient/caregiver concerns regarding current medication regime including effective adherence. Addressed patient/caregiver concerns regarding diagnosis a nd prognosis including accuracy of diagnosis, prognosis over time, impact of diagnosis. Addressed patient/caregiver concerns regarding impact of recent stressors. PFSH Medical History Hypotension Asthma Surgical History No pertinent past surgical history Family History Father HTN (hypertension) Diabetes Mother Rheumatoid arthritis HTN (hypertension) Lupus Maternal Aunt Breast cancer Family/Other Mental health disorder Substance use disorder Social History Housing: Apartment Alcohol intake: never Patient Tobacco Use Status: Never used Tobacco e-Cigarette/Vaping Use: Never Used Second Hand Smoke Exposure: No Substance Use Type: Marijuana service: No Current occupational status: employed Current occupational exposures/hazards: No Cognitive needs: No Hearing needs: No Vision needs: No Social History: lives with her mother and 21 yo brother; 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
== END 2025-04-03 15:39 | disposition home or self-care (01) ==
LOC: HO.HOP 15:10
PROVIDERS: Visit Provider Clinical Nurse Specialist Psychiatric/Mental Health
DX: F33.1 Major depressive disorder, recurrent, moderate (principal); F41.0 Panic disorder [episodic paroxysmal anxiety]; F41.1 Generalized anxiety disorder
CPT/HCPCS: 99214

== ENCOUNTER → 2025-04-03 15:10 | Outpatient (BNVA) | payer OTHER, SELFPAY | PROVIDERS: Visit Provider Clinical Nurse Specialist Psychiatric/Mental Health ==

== ENCOUNTER 2025-04-05 11:10 | Outpatient (AMB) | payer OTHER, SELFPAY ==
--- NOTE | 2025-04-05 11:11 | A.OFFVIS_ITS ---
Vital Signs 04/05/25 11:17 Height 5 ft 3 in Weight 125 lb 0.034 oz BMI 22.1 BP 112/74 Blood Pressure Location Rt brachial Position Sitting Respiration 16 Pulse 80 Pulse Oximetry (%) 98 Oxygen Delivery Method Room Air Intake Visit Reasons: lupus/New Patient Intake Note: Patient presents for Lupus. Allergies dog dander Allergy (Mild, Verified 04/05/25 11:14) Sneezing pollen Allergy (Unknown, Uncoded 03/02/25 12:07) Unknown Soap Allergy (Unknown, Uncoded 03/02/25 12:07) Unknown Medication List - Last Reconciled 04/05/25 by Angela Lentz MD albuterol sulfate 90 mcg/actuation 1 inh inhalation QID PRN budesonide 90 mcg/actuation (Pulmicort Flexhaler) 1 inh inhalation BID erythromycin 1 appl ophthalmic-Left QID 7 days hydroxyzine HCl 10 mg PO TID PRN ibuprofen 600 mg PO Q6H PRN loratadine 10 mg PO DAILY metronidazole 500 mg PO Q12H ondansetron 4 mg PO Q8H PRN promethazine 25 mg PO Q6H PRN triamcinolone acetonide 0.025% 1 appl topical BID HPI Comments Details: Patient is a 19-year-old female with asthma, anxiety with depression, and GERD here today for evaluation of a positive KOKO Patient states that when she was 5 years old she was having a lot of fainting spells and easy brusing and was checked for a bunch of different things and was found to have an elevated KOKO. She never followed up with rheumatology at that time. Was told that she has lupus but they decided to monitor her and rechecked her KOKO and it was negative. She has been doing well until the past year she has been experiencing nausea, cold sweats, difficulty sleeping and increased anxiety. Also complains of body aches - specifically affecting her back and her shoulders - first notices it in the morning and stays for about 2 days then it goes away Denies involvement of hands and feet. 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 [facility] Medical History Hypotension Asthma Surgical History No pertinent past surgical history Family History Father HTN (hypertension) Diabetes Mother Rheumatoid arthritis HTN (hypertension) Lupus Maternal Aunt Breast cancer Family/Other Mental health disorder Substance use disorder Social History Housing: Apartment Alcohol intake: never Patient Tobacco Use Status: Never used Tobacco e-Cigarette/Vaping Use: Never Used Second Hand Smoke Exposure: No Substance Use Type: Marijuana service: No Current occupational status: employed Current occupational exposures/hazards: No Cognitive needs: No Hearing needs: No Vision needs: No Female Reproductive History Menstrual Age of Menarche: 10 Review of Systems Const Details: Review of Systems Constitutional: Denies fever, chills, weight loss ENT: Denies vision changes, eye pain or eye redness, dental caries, dry mouth GI: Denies nausea, vomiting, diarrhea, abdominal pain, change in BM Pulm: Denies SOB, CANCINO, hemoptysis, wheezing Cards: Denies chest pain, palpitations Skin: Denies Raynaud's, rash, nail changes, photosensitivity, POULTRY 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 Well appearing and in no apparent painful distress HEENT Conjunctiva and sclera clear. ?Pupils equal round and reactive to light. ?No lymphadenopathy. ? CHEST/RESPIRATORY SYSTEM Normal respiratory effort and able to speak in complete sentences. ?Clear to auscultation bilaterally. ?No crackles, rales, rhonchi, wheezes heard. CARDIAC SYSTEM Regular rate and rhythm. ?S1 and S2 heard no murmurs. ?Radial pulses intact b ilaterally MSK Hands: ?Able to make a fist. No synovitis noted to the MCPs, PIPs or DIPs. ?No tenderness to palpation of these joints. No deformities noted. ? Wrists: ?Full range of motion at the wrists without pain. ?No tenderness to palpation or synovitis noted to the wrists. Elbows: Full range of motion without pain. No tenderness, weakness, swelling, increased warmth or erythema. Shoulders: Full range of active range of motion without pain. No tenderness, weakness, swelling, increased warmth or erythema. Hips: Full range of motion without pain. Hip bursa: No tenderness to palpation Knees: ?Full range of motion. ?No tenderness, swelling, increased warmth or erythema.?No effusion or crepitations Ankles: Full range of motion. ?No tenderness, swelling, increased warmth or erythema.? Feet: ?Negative squeeze test. ?No tenderness to palpation or swelling of the MTPs. Tender points:?No tenderness to palpation of the bilateral trapezius, suprasp inatus, greater trochanters, anterior costochondral junctions, bilateral gluteal areas, bilateral suboccipital muscle insertions SKIN Skin intact without rashes. normal capillary nail folds Schrimer's test: >15mm after 5 mins Beighton score 5/9 (hands, thumbs, able to touch floor) Results Reviewed Results Reviewed: Laboratory Tests 12/04/24 08:38 WBC 7.4 RBC 4.34 Hgb 13.5 Hct 40.5 Plt Count 330 D Sodium 141 Potassium 4.1 Chloride 110 H Carbon Dioxide 25 BUN 16 Creatinine 0.77 AST 24 ALT 22 Laboratory Tests 10/19/24 14:08 KOKO Screen POSITIVE A KOKO Titer 1:320 H KOKO Pattern Nuclear, Homogeneous A Assessment & Plan Assessment & Plan (1) KOKO positive: Code(s): R76.8 - Other specified abnormal immunological findings in serum Category: Medical Plan: #Positive KOKO The presence of antinuclear antibodies (KOKO) is mainly associated with connective tissue diseases (CTD). ?However, their presence is found in healthy people especially in women and patients >65. ?In healthy individuals, the frequency of KOKO has been shown to be 31.7% of individuals at 1:40 serum dilution, 13.3% at 1:80, 5.0% at 1:160, and 3.3% at 1:320 (2). Some drugs and xenobiotics are also important for the development of KOKO (hydralazine, hydrochlorothiazide, minocycline, terbinafine, ciprofloxacin, furosemide, omeprazole). Moreover, the deficiency of vitamin D in the body of patients corre lates with occurrence of these antibodies (1). At this time there is low suspicion for a connective tissue disease with normal nail fold capillaroscopy, normal Marino's test, no inflammatory arthritis, and no other specific signs or symptoms consistent with lupus or any other connective tissue disease. Plan - Check C3, C4, dsDNA, SSA/SSB, [place]/CHILDR[facility]'S INSTITUTION ATTENDANT, lupus anticoagulant, anticardiolipin, beta 2 glycoprotein, TSH, TPO, thyroglobulin antibody, T3, T4 - Hold off on UA/UPC as patient is on her period - Will call patient with results 1. Hattie?anuj Clements, Stewart Romero, Jaimee Almaraz. Antinuclear antibodies in healthy people and non-rheumatic diseases - diagnostic and clinical implications. Reumatologia. 2018;56(4):243-248. doi: 10.5114/reum.[email or web address]. Epub 2017Jul 08. PMID: [id number]; PMCID: [id number]. 2. Duggan EM, Dionne TE, Sadie JS, Dmitri B, Kenny R, Archie MJ, Phoenix T, Hamzah JA, Nellie JR, Jose RG, Nori RN, Yasmany JS, Gardenia NF, Mandy RJ, Tien Y, Jacquelyn A, Jenaro MR, Felicita DEXTER. Range of antinuclear antibodies in healthy individuals. Arthritis Rheum. 1996;40(9):1601-11. doi: 10.1002/art.5822199405. PMID: 8768377. (2) Generalized hypermobility of joints: Code(s): M24.80 - Other specific joint derangements of unspecified joint, not elsewhere classified Plan: #Hypermobility Patient's exam is consistent with hypermobility with a Beighton score of 5/9. Discussed with patient that hypermobility can lead to myalgias/joint pain especially involving the large joints such as the shoulders, hips, knees and back. Recommended strengthening exercises for these muscle groups to strength in the muscles and stabilize the joints. Plan I spent 45 minutes reviewing the record and labs, taking a history, examining the patient, discussing the treatment plan, ordering diagnostic work up and documenting in the medical record Orders: Orders Anti DNA DS Antibody Today R76.8 - Other specified abnormal immunological findings in serum Sm Sm/[facility]ILDR[facility] INSTIT[facility] ATTENDANT Antibodies Today R76.8 - Other specified abnormal immunological findings in serum Complete Blood Count Auto Diff Today R76.8 - Other specified abnormal immunological findings in serum C Reactive Protein Today R76.8 - Other specified abnormal immunological findings in serum Direct Epifanio (DU) Today R76.8 - Other specified abnormal immunological findings in serum Protein Creatinine Ratio, Ur Today R76.8 - Other specified abnormal immunological findings in serum Thyroglobulin Antibodies Today R76.8 - Other specified abnormal immunological findings in serum Thyroid Peroxidase Antibodies Today R76.8 - Other specified abnormal immunological findings in serum Thyroid Stimulating Hormone Today R76.8 - Other specified abnormal immunological findings in serum Complement C3 Today R76.8 - Other specified abnormal immunological findings in serum Complement C4 Today R76.8 - Other specified abnormal immunological findings in serum Comprehensive Met. Panel Today R76.8 - Other specified abnormal immunological findings in serum Erythrocyte Sedimentation Rate Today R76.8 - Other specified abnormal immunological findings in serum Sjogren's Antibodies Today R76.8 - Other specified abnormal immunological findings in serum UA w Microscopic Today R76.8 - Other specified abnormal immunological findings in serum Vitamin D 25-OH (D2 and D3) Today R76.8 - Other specified abnormal immunological findings in serum Scleroderma 12 Panel Today R76.8 - Other specified abnormal immunological findings in serum Beta-2 Glycoprotein Antibody Today R76.8 - Other specified abnormal immunological findings in serum Cardiolipin Antibodies Today R76.8 - Other specified abnormal immunological findings in serum Lupus Anticoagulant Panel Today R76.8 - Other specified abnormal immunological findings in serum Free T4 (Free Thyroxine) Today R76.8 - Other specified abnormal immunological findings in serum Triiodothyronine T3 Total Today R76.8 - Other specified abnormal immunological findings in serum Triiodothyronine T3 Free Today R76.8 - Other specified abnormal immunological findings in serum Medications: Refilled promethazine 25 mg PO Q6H PRN 20 tabs 0RF nausea and vomiting ondansetron 4 mg PO Q8H PRN 10 tabs 0RF nausea and vomiting Coding Level of Care Code New Pt Level 4 (88027) Diagnoses KOKO positive R76.8 Generalized hypermobility of joints M24.80
[2025-04-05 11:17] VITALS: BP 112/74; PULSE 80; RESP 16; O2SAT 98; BMI 22.1
== END 2025-04-05 11:57 | disposition home or self-care (01) ==
LOC: HO.RHE 11:10
PROVIDERS: Visit Provider Student in an Organized Health Care Education/Training Program
DX: R76.8 Other specified abnormal immunological findings in serum (principal); M24.80 Other specific joint derangements of unspecified joint, not elsewhere classified
CPT/HCPCS: 99204

== ENCOUNTER → 2025-04-05 11:10 | Outpatient (BNVA) | payer OTHER, SELFPAY | PROVIDERS: Visit Provider Student in an Organized Health Care Education/Training Program ==

== ENCOUNTER 2025-04-06 13:06 | Outpatient (REF) | payer OTHER, SELFPAY ==
[2025-04-06 13:29] LABS: MANUAL DIFF FLAG NO
[2025-04-06 13:52] LABS: Basophils Percent Auto 0.3 % (0-2); Eosinophils Absolute Auto 0.1 X10*3/uL (0.0-0.4); Eosinophils Percent Auto 1.2 % (0-4); Hematocrit 41.3 % (37.0-47.0); Hemoglobin 13.6 g/dl (12.0-16.0); Imm Gran Abs Auto 0.05 X10*3/uL (0.00-0.03); Imm Gran Pct Auto 0.6 % (0.0-0.4); Lymphocytes Absolute Auto 1.8 X10*3/uL (1.2-4.9); Lymphocytes Percent Auto 21.3 % (20-40); Mean Corpuscular HGB Conc 32.9 g/dl (31.0-35.0); Mean Corpuscular Hemoglobin 30.1 pg (27.0-33.0); Mean Corpuscular Volume 91.4 fL (80.0-98.0); Mean Platelet Volume 9.1 fL (9.4-12.3); Monocytes Absolute Auto 0.7 X10*3/uL (0.1-1.2); Neutrophils Absolute Auto 5.9 x10*3/uL (2.0-8.3); Neutrophils Percent Auto 68.6 % (45-73); Platelet Count 369 X10*3/uL (160-400); Red Blood Count 4.52 X10*6/uL (4.20-5.50); White Blood Count 8.6 X10*3/uL (4.8-10.8)
[2025-04-06 14:11] LABS: Appearance Urine Turbid; Color Urine Dark Yellow; Glucose Urine UA Negative (Negative); Leukocyte Esterase Urine Small (1+) (Negative); Nitrite Urine Negative (Negative); PH 5.5 (5.0-9.0); Specific Gravity - Urine 1.025 (1.005-1.025); UMIC TRIGGER UA YES; Urine Blood Large (3+) (Negative); Urine Ketones Trace mg/dL (Negative); Urine Protein Trace mg/dL (Neg-Trace)
[2025-04-06 14:27] LABS: Bacteria Urine 3+ (None Seen); Squamous Epithelial Cell Urine >20 /HPF (0-2); WBC Urine 0-5 /HPF (0-5)
[2025-04-06 14:35] LABS: Erythrocyte Sedimentation Rate 7 MM/HR (0-20)
[2025-04-06 14:39] LABS: Alanine Aminotransferase 21 U/L (0-31); Albumin Level 4.8 g/dL (3.5-5.0); Alkaline Phosphatase 66 U/L (39-117); Anion Gap 13 (12-20); Aspartate Amino Transferase 26 U/L (5-31); Bilirubin Total 0.7 mg/dL (0.0-1.0); Blood Urea Nitrogen 13 mg/dL (9-16); C Reactive Protein < 0.10 mg/dL (< or = 0.50); Calcium 9.6 mg/dL (8.4-10.2); Carbon Dioxide 27 mmol/L (22-29); Chloride 108 mmol/L (96-108); Estimated Glomerular Filt Rate > 60; Glucose Random 90 mg/dL (60-115); Sodium 144 mmol/L (135-145); Total Protein 7.5 g/dL (6.5-8.0)
[2025-04-06 14:44] LABS: Creatinine Urine 310.06 mg/dL; Protein/Creatinine Ratio, Ur 0.08 (<0.2); Total Protein Urine Random 25 mg/dL (<12)
[2025-04-06 15:00] LABS: Free T4 (Free Thyroxine) 0.97 ng/dL (0.71-1.85); Thyroid Stimulating Hormone 0.51 uIU/mL (0.32-4.0)
[2025-04-07 06:03] LABS: Triiodothyronine T3 Free 3.4 pg/mL (2.3-4.2); Triiodothyronine T3 Total 78 ng/dL (76-181)
[2025-04-09 13:14] LABS: Complement C3 132 mg/dL (83-193)
[2025-04-09 18:59] LABS: Thyroglobulin Antibodies <1 IU/mL (< or = 1); Thyroid Peroxidase Antibodies <1 IU/mL (<9)
[2025-04-09 23:13] LABS: Anti DNA DS Antibody <1 IU/mL; Antibody to SS-A Antigen <1.0 NEG AI (<1.0 NEG); Antibody to SS-B Antigen <1.0 NEG AI (<1.0 NEG); Cardiolipin IgG Ab <2.0 GPL-U/mL; Cardiolipin IgM Ab <2.0 MPL-U/mL; SM/Ribonucleoprotein Ab <1.0 NEG AI (<1.0 NEG); Smith Protein <1.0 NEG AI (<1.0 NEG)
[2025-04-10 03:59] LABS: Beta-2 Glycoprotein IgA <2.0 U/mL (<20.0); Beta-2 Glycoprotein IgG <2.0 U/mL (<20.0); Beta-2 Glycoprotein IgM <2.0 U/mL (<20.0)
[2025-04-10 13:05] LABS: Vitamin D 25-OH, D2 <4 ng/mL; Vitamin D 25-OH, D3 21 ng/mL; Vitamin D 25-OH, Total 21 ng/mL (30-100)
[2025-04-11 12:52] LABS: Centromere Protein A Ab <11 SI (<11); Centromere Protein B Ab <11 SI (<11); Fibrillarin Ab <11 SI (<11); PM SCL 100 Ab <11 SI (<11); PM SCL 75 Ab <11 SI (<11); RNA Polymerase III RP11 Ab <11 SI (<11); RNA Polymerase III RP155 Ab <11 SI (<11); SCL-70 Extractable Nuclear Ab <11 SI (<11); Th-To Ab <11 SI (<11); U1 SNRNP RNP 70KD <11 SI (<11); U1 SNRNP RNP A <11 SI (<11); U1 SNRNP RNP C <11 SI (<11)
[2025-04-12 05:02] LABS: PTT (LAC) Screen 29 sec (<=40)
== END 2025-04-06 13:07 | disposition home or self-care (01) ==
LOC: HO.LAB 13:06
PROVIDERS: Visit Provider Student in an Organized Health Care Education/Training Program
DX: R76.8 Other specified abnormal immunological findings in serum (principal); Z36.1 Encounter for antenatal screening for raised alphafetoprotein level
CPT/HCPCS: 36415; 80053; 81001; 82306; 82570; 84156; 84182; 84439; 84443; 84480; 84481; 85025; 85597; 85598; 85613; 85652; 85730; 86140; 86146; 86147; 86160; 86225; 86235; 86376; 86800; 86880

== ENCOUNTER 2025-10-24 19:03 | Emergency (ER) | payer OTHER, MEDICAID, SELFPAY ==
--- NOTE | 2025-10-24 19:08 | ED_ITS ---
HPI - General Adult General Chief complaint: Upper Respiratory Symptoms Stated complaint: nausea, cough Time Seen by Provider: 10/24/25 21:44 Source: patient, RN notes reviewed and old records reviewed Mode of arrival: ambulatory Limitations: no limitations History of Present Illness ED Provider: Eric BAIRD narrative: 20-year-old female with past medical history significant for asthma, depression presents for evaluation of multiple complaints pain She reports nausea, cough, fevers, headaches and body aches for the last 2 days She has taken ondansetron without any significant improvement in her nausea Denies any sick contacts Denies any rashes pain She is not concerned about Related Data Previous Rx's ?Medication ?Instructions ?Recorded loratadine 10 mg tablet 10 mg PO DAILY #90 tabs 05/29 ibuprofen 600 mg tablet 600 mg PO Q6H PRN fever or p ain 04/20/23 #30 tabs albuterol sulfate 90 mcg/actuation 1 inh inhalation QI D PRN shortness 09/02/23 aerosol inhaler of breath or wheezing #6.7 g naida triamcinolone acetonide 0.025 % 1 appl topical BID #15 grams 05/10/24 topical cream budesonide 90 mcg/actuation breath 1 inh inhalation BI D #1 ea 07/07/24 activated powder inhaler (Pulmicort Flexhaler) hydroxyzine HCl 10 mg tablet 10 mg PO TID PRN anxiety #30 tabs 10/19/24 erythromycin 5 mg/gram (0.5 %) eye 1 appl ophthalmic-L eft QID 7 days 03/08/25 ointment #3.5 grams metronidazole 500 mg tablet 500 mg PO Q12H #14 tabs ondansetron 4 mg disintegrating 4 mg PO Q8H PRN nausea and 04/05/25 tablet vomiting #10 tabs promethazine 25 mg tablet 25 mg PO Q6H PRN nausea and 04/05/25 vomiting #20 tabs metoclopramide HCl 10 mg tablet 10 mg PO Q6H PRN nause a and 10/24/25 (Reglan) vomiting #12 tabs Allergies Allergy/AdvReac Type Severity Reaction Status Date / Time dog dander Allergy Mild Sneezing Verified 10/24/25 19:10 pollen Allergy Unknown Unknown Uncoded 10/24/25 19:10 Soap Allergy Unknown Unknown Uncoded 10/24/25 19:10 Review of Systems Constitutional: Constitutional: Reports body ache(s), Reports chills, Reports fatigue, Reports fever(s), Reports headache(s) and Reports malaise Eyes: Eyes: Denies blurry vision ENT: Denies vertigo, Denies dizziness and Reports headache(s) Cardiovascular: Cardiovascular: Denies chest pain, Denies dyspnea and Denies dyspnea on exertion Respiratory: Respiratory: Reports cough, Denies dyspnea and Denies dyspnea on exertion Gastrointestinal: Gastrointestinal: Denies abdominal pain, Denies melena, Denies hematochezia, Reports diarrhea, Reports nausea and Reports vomiting Genitourinary: Genitourinary: Denies dysuria and Denies pelvic pain Musculoskeletal: Musculoskeletal: Denies back pain Integumentary/Breasts: Skin/Breast: Denies rash Neurologic: Denies vertigo, Denies dizziness and Reports headache(s) Endocrine: Endocrine: Reports fatigue PMFSH Past Medical History Medical History Hypotension Asthma Surgical History No pertinent past surgical history Family History Family History Father HTN (hypertension) Diabetes Mother Rheumatoid arthritis HTN (hypertension) Lupus Maternal Aunt Breast cancer Family/Other Mental health disorder Substance use disorder Social History Social History Housing: Apartment Alcohol intake: never Patient Tobacco Use Status: Never used Tobacco e-Cigarette/Vaping Use: Never Used Second Hand Smoke Exposure: No Substance Use Type: Marijuana Advance Directives: No Advance Directives Information Provided: No service: No Current occupational status: employed Current occupational exposures/hazards: No Cognitive needs: No Hearing needs: No Vision needs: No Physical Exam ED Vital Signs: Vital Signs - 24 hr 10/24/25 19:09 Temperature 98.4 F Pulse Rate 64 Respiratory Rate 16 Blood Pressure 127/76 Pulse Oximetry 100 Oxygen Delivery Method Room Air BMI result Body Mass Index 22.1 Const General: healthy appearing, comfortable, no acute distress, alert and awake Nutritional Appearance: well nourished Orientation/consciousness: patient oriented x3 HENMT Head: Yes normocephalic and Yes atraumatic Eyes Eyelids: Yes eyelids normal Conjunctivae: conjunctivae normal Sclerae: sclerae normal Corneas: corneas normal Pupils: Equal, round and reactive pupils present EOM: EOMs intact bilaterally Neck Neck: Yes full ROM Resp Effort & Inspection: normal respiratory effort, able to speak in complete sentences, no audible wheezes and not labored Auscultation: clear to auscultation bilaterally Cardio Rate: regular rate Rhythm: regular rhythm GI Inspection: No distended Palpation (GI): Soft to palpation, not firm, nontender, no guarding and not rigid Skin General skin exam: no rashes or lesions noted and elasticity normal Neuro General: patient oriented x3 Cranial nerves: Yes Equal, round and reactive pupils present and Yes Bilaterally intact EOM present Cognition (Neuro): normal cognition Extrem Other: Moving all extremities well without any obvious deformities Course Course Course Narrative: This is a rapid medical exam performed by Kamla Damon NP: Additional HPI, ROS, PE not included below will be deferred to primary provider. Patient is a 20y/o F presenting with complaint of nausea, decreased po intake due to this, since Wednesday. Had cough and fevers over the weekend. Plan: viral serology Medical Decision Making Medical Decision Making [facility] Narrative: 20-year-old healthy female presents for evaluation of flu-like symptoms. Her vital signs within normal limits, she did not fact test positive for influenza a which explains her symptoms. She is quite well appearing. She is not concerned for but has not given a urinalysis. I offered to perform a test but the patient reports that she has not been sexually active and does not want to have this test performed. We will treat her nausea with Reglan as she reports no significant improvement with ondansetron. Differential Diagnosis Differential Diagnoses: The differential diagnosis associated with the presentation includes Viral syndrome Influenza COVID-19 Lab Data Labs: Lab Results 10/24/25 Range/Units 19:38 Influenza Type A (PCR) POSITIVE A (Negative) Influenza Type B (PCR) NEGATIVE (Negative) RSV RNA Qual (PCR) NEGATIVE (Negative) SARS-CoV-2 RNA (RT-PCR) NEGATIVE (Negative) Discharge Plan Discharge Clinical Impression: Influenza A Patient Disposition: Home, Self-Care Instructions: Influenza (ED) Additional Instructions: You tested positive for influenza A. You may use Zofran or Reglan for nausea and vomiting You should not take them both together Use ibuprofen/Tylenol as needed for fevers, body aches and headaches Prescriptions: New metoclopramide HCl [Reglan] 10 mg tablet 10 mg PO Q6H PRN (Reason: nausea and vomiting) Qty: 12 0RF No Action loratadine 10 mg tablet 10 mg PO DAILY Qty: 90 2RF Rx Instructions: Take 1 tablet by mouth daily albuterol sulfate 90 mcg/actuation HFA aerosol inhaler 1 inh inhalation QID PRN (Reason: shortness of breath or wheezing) Qty: 6.7 3RF Pulmicort Flexhaler 90 mcg/actuation aerosol powdr breath activated 1 inh inhalation BID Qty: 1 2RF ibuprofen 600 mg tablet 600 mg PO Q6H PRN (Reason: fever or pain) Qty: 30 0RF erythromycin 5 mg/gram (0.5 %) ointment 1 appl ophthalmic-Left QID 7 Days Qty: 3.5 0RF triamcinolone acetonide 0.025 % cream 1 appl topical BID Qty: 15 0RF ondansetron 4 mg tablet,disintegrating 4 mg PO Q8H PRN (Reason: nausea and vomiting) Qty: 10 0RF promethazine 25 mg tablet 25 mg PO Q6H PRN (Reason: nausea and vomiting) Qty: 20 0RF hydroxyzine HCl 10 mg tablet 10 mg PO TID PRN (Reason: anxiety) Qty: 30 0RF metronidazole 500 mg tablet 500 mg PO Q12H Qty: 14 1RF Print Language: Burmese
[2025-10-24 19:09] VITALS: BP 127/76; PULSE 64; RESP 16; TEMP 36.9; O2SAT 100; BMI 22.1
[2025-10-24 20:26] LABS: Resp Syncy Virus RNA Qual PCR NEGATIVE (Negative); SARS COV2 PCR INHOUSE NEGATIVE (Negative)
--- OUTSIDE RECORDS SUMMARY | 2025-10-24 21:29 | XMS_ITS | Clinical Summary ---
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 Role Phone Bee Perkins Primary Care Provider [phone] Source Comments Please note that some or [...] Allergy Reactions Criticality Noted Date Comments [place] 12/06/2019 Dog Dander 12/06/2019 [place] 12/06/2019 Medications [...] SCREENING 2016 COVID-19 Vaccine (2023-2 5 season) 2025 INFLUENZA (#1) 2025 NIRSEVIMAB VACCINES UNDER 8 MONTHS Aged Out No longer eligible based on patient's age to complete this topic Insurance [facility] Care Teams 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
== END 2025-10-24 22:59 | disposition home or self-care (01) ==
PROVIDERS: Registered Nurse Emergency; Emergency Provider Student in an Organized Health Care Education/Training Program
DX: J10.1 Influenza due to other identified influenza virus with other respiratory manifestations (principal); R05.9 Cough, unspecified; R11.0 Nausea; R51.9 Headache, unspecified; R50.9 Fever, unspecified; M79.10 Myalgia, unspecified site; J45.909 Unspecified asthma, uncomplicated; Z03.818 Encounter for observation for suspected exposure to other biological agents ruled out
CPT/HCPCS: 87637; 99281; 99283

== ENCOUNTER 2025-11-07 13:05 | Outpatient (REF) | payer OTHER, MEDICAID, SELFPAY ==
[2025-11-12 15:42] LABS: Bacterial Vaginosis PCR POSITIVE (Negative); Candida Group PCR DETECTED (Not Detect); Candida glab krusei PCR NOT DETECTED (Not Detect); Trichomonas vaginalis PCR NOT DETECTED (Not Detect)
[2025-11-12 16:14] LABS: CT PCR NOT DETECTED (Not Detect.); NG PCR NOT DETECTED (Not Detect.)
== END 2025-11-07 13:06 | disposition home or self-care (01) ==
LOC: HO.LAB 13:05
PROVIDERS: Visit Provider Advanced Practice Midwife
DX: Z01.419 Encounter for gynecological examination (general) (routine) without abnormal findings (principal); Z20.2 Contact with and (suspected) exposure to infections with a predominantly sexual mode of transmission; Z30.09 Encounter for other general counseling and advice on contraception; N89.8 Other specified noninflammatory disorders of vagina
CPT/HCPCS: 81515; 87494

== ENCOUNTER 2025-11-07 13:05 | Outpatient (AMB) | payer OTHER, MEDICAID, SELFPAY ==
[2025-11-07 13:11] VITALS: BP 122/78; BMI 23.0
--- NOTE | 2025-11-07 13:11 | MHC.OFFVIS ---
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 Present Allergies dog dander Allergy (Mild, Verified 11/07/25 13:12) Sneezing pollen Allergy (Unknown, Uncoded 11/07/25 13:12) Unknown Soap Allergy (Unknown, Uncoded 11/07/25 13:12) Unknown Medication List - Last Reconciled 11/07/25 by Marsha Hatch CNM albuterol sulfate 90 mcg/actuation 1 inh inhalation QID PRN budesonide 90 mcg/actuation (Pulmicort Flexhaler) 1 inh inhalation BID erythromycin 1 appl ophthalmic-Left QID 7 days hydroxyzine HCl 10 mg PO TID PRN ibuprofen 600 mg PO Q6H PRN loratadine 10 mg PO DAILY metoclopramide HCl (Reglan) 10 mg PO Q6H PRN metronidazole 500 mg PO Q12H ondansetron 4 mg PO Q8H PRN promethazine 25 mg PO Q6H PRN triamcinolone acetonide 0.025% 1 appl topical BID Is last menstrual period known: Yes Last menstrual period: 11/01/25 HPI HPI 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 She does not remember when she is supposed to see her primary care provider but she did follow-up on the positive KOKO test that she had had done before and she saw specialist and she was told that in fact she does not have lupus so she is happy about that.y. Work is challenging sometimes. She said she tried college and it was not for her maybe some other time but it was hard working and commuting to school and doing the school work. She had a roommate for a while but that person has now left she enjoyed having the company but now she is living alone. She likes going walking in nature. She does have a couple of places that she likes to go including [facility] and in [place]. [facility] Medical History Hypotension Asthma Surgical History No pertinent past surgical history Family History Father HTN (hypertension) Diabetes Mother Rheumatoid arthritis HTN (hypertension) Lupus Maternal Aunt Breast cancer Family/Other Mental health disorder Substance use disorder Social History Housing: Apartment Alcohol intake: never Patient Tobacco Use Status: Never used Tobacco e-Cigarette/Vaping Use: Never Used Second Hand Smoke Exposure: No Substance Use Type: Marijuana service: No Current occupational status: employed Current occupational exposures/hazards: No Cognitive needs: No Hearing needs: No Vision needs: No Female Reproductive History Menstrual Age of Menarche: 10 Duration of menses: 6-7 days Date of last menstrual period: 11/01/25 control method: none Total pregnancies: 0 Date of last pap smear: 07/20/24 (neg.) Physical Exam Vital Signs: Last Vital Signs BP 122/78 11/07/25 13:11 BMI result Body Mass Index 23.0 Const General: healthy appearing, comfortable, no acute distress, well developed and alert Nutritional Appearance: average body habitus Orientation/consciousness: patient oriented x3 Limitations: no limitations HEENT Head: Yes normocephalic Neck Neck: Yes normal visual inspection Chest Chest palpation & inspection: normal inspection of the chest Breast/axilla inspection: normal inspection of the breasts and normal inspection of the axillae Breast/axilla palpation: normal palpation of the breasts and normal palpation of the axillae Resp Effort & Inspection: normal respiratory effort GI Inspection: Yes normal to inspection, No Abdominal wall edema and No distended Palpation (GI): Soft to palpation and nontender Other: Normal external exam normal speculum exam vagina pink and moist with very healthy appearing mucus nulliparous cervix pink smooth healthy appearing with scant white mucus testing taken for GC chlamydia trichomoniasis bacterial vaginosis and yeast she currently has no symptoms. Note patient said I was not hurting her with the exam but she does not like exams and she preferred to make lots of vocalizations while I was doing the exam to distract her self. She did not have any complaints of any thing going on and declined the bimanual part of the exam. External Female Exam: normal external appearance and normal appearance of the urethra Speculum Exam - Vagina: normal appearance of the vagina and normal vaginal discharge Speculum Exam - Cervix: normal appearance of the cervix Neuro General: patient oriented x3 Results Reviewed Results Reviewed: 07/20/2025 Pap is negative. First Pap. Assessment & Plan Assessment & Plan (1) control counseling: Comment: 11/07/25-currently abstinent but uses condoms 100% if she becomes active. Code(s): Z30.09 - Encounter for other general counseling and advice on contraception Category: Medical (2) Cervical cancer screening: Comment: States she has had the Gardasil vaccine series and educated that Paps will start when she is 19; First Pap=07/20/2024, Pap is negative. Code(s): Z12.4 - Encounter for screening for malignant neoplasm of cervix Category: Medical (3) Well woman exam with routine gynecological exam: Code(s): Z01.419 - Encounter for gynecological examination (general) (routine) without abnormal findings Category: Medical (4) Screen for sexually transmitted diseases: Comment: Patient is on portal we would of course notify her for any positives... Code(s): Z11.3 - Encounter for screening for infections with a predominantly sexual mode of transmission Category: Medical Plan -----Discussed in this visit the following: healthy balanced diet, regular and consistent exercise, getting recommended health screens, doing the best she can for her particular health concerns, kegel exercises, pap smear screening and followup recommendations, mammography screening and SBE, normal changes in cycles in her life stage--- Discussed her overall self-care and taking care of herself. She has learning to balance the responsibilities of adulthood and job and challenges and also goes for walks and takes care of herself and tries to eat healthy. She plans to be with family tonight for the new year's. She says she did try going to college well she was working but it was very hard and thinks it is not for her right now but maybe some day. We Shared information about safe places to walk in nature... Orders: Orders CT NG by PCR Vag/Cerv Today N89.8 - Other specified noninflammatory disorders of vagina Bacterial Vaginosis Panel Today N89.8 - Other specified noninflammatory disorders of vagina Coding Level of Care Code Est Pt Prev Care 18-39y([id number]) Diagnoses control counseling Z30.09 Cervical cancer screening Z12.4 Well woman exam with routine gynecological exam Z01.419 Screen for sexually transmitted diseases Z11.3
--- OUTSIDE RECORDS SUMMARY | 2025-11-07 14:37 | XMS_ITS | Clinical Summary ---
Author Organization [facility] 's Address [address] [place] [address] Care Team Providers Care Business Reporter Name Role Phone Bee Perkins Primary Care Provider [phone] Source Comments Please note that some or [...] obtain the minor's consent prior to disclosure.[facility] Allergies Active Allergy Reactions Criticality Noted Date Comments Birch Wilber 12/06/2019 Dog Dander 12/06/2019 Feathers 12/06/2019 Medications [...] patient's age to complete this topic Insurance [facility] Care Teams Business Reporter Relationship Specialty Start Date End Date Bee Perkins PA [address] [place] [address] [place] [id number] PCP - General Physician Seasonal Greenery Bundler 08/23/19
== END 2025-11-07 13:58 | disposition home or self-care (01) ==
LOC: HO.HWSM 13:05
PROVIDERS: Visit Provider Advanced Practice Midwife
DX: Z01.419 Encounter for gynecological examination (general) (routine) without abnormal findings (principal); Z30.09 Encounter for other general counseling and advice on contraception; Z12.4 Encounter for screening for malignant neoplasm of cervix; Z11.3 Encounter for screening for infections with a predominantly sexual mode of transmission
CPT/HCPCS: 99395; 99459